=== PATIENT | female | born 1960 | race Two or more races ===

== ENCOUNTER 2020-01-28 08:19 | Outpatient (REF) | payer OTHER, SELFPAY ==
--- NOTE | 2020-01-28 08:24 | MM_ITS ---
EXAMINATION: MM SCREENING DIGITAL BREAST TOMOSYNTHESIS, BILATERAL CLINICAL INFORMATION: Screening. Asymptomatic. The lifetime risk of breast cancer based on the Tyrer-Cuzick Model is 6%. COMPARISON: Mammography: 07/16/2018, 06/05/2017 TECHNIQUE: Digital breast tomosynthesis is performed in both the craniocaudal and mediolateral oblique views along with computer-aided detection (CAD). Synthesized 2D images are generated from the tomosynthesis. FINDINGS: There are scattered areas of fibroglandular density (ACR BI-RADS breast composition Category b). There are no significant masses, abnormal calcifications, or other abnormalities. There are scattered bilateral benign coarse round and rim calcifications and some ductal secretory calcifications retroareolar right breast the axilla and skin contours are unremarkable. MM/MM tomosynthesis screening BI IMPRESSION: No mammographic evidence of malignancy. ASSESSMENT: BI-RADS 2: Benign RECOMMENDATION: Routine annual mammography screening. This patient's information was entered into a reminder system with a target due date for their next mammogram.
== END 2020-01-28 08:20 | disposition home or self-care (01) ==
LOC: HO.MAMMO 08:19
PROVIDERS: Visit Provider Physician Assistant
DX: Z12.31 Encounter for screening mammogram for malignant neoplasm of breast (principal)
CPT/HCPCS: 77063; 77067

== ENCOUNTER 2020-03-07 08:18 | Outpatient (REF) | payer OTHER, SELFPAY ==
[2020-03-07 10:15] LABS: Alanine Aminotransferase 26 U/L (0-31); Albumin Level 4.2 g/dL (3.5-5.0); Alkaline Phosphatase 90 U/L (39-117); Anion Gap 15 (12-20); Aspartate Amino Transferase 50 U/L (5-31); Bilirubin Total 0.6 mg/dL (0.0-1.0); Blood Urea Nitrogen 15 mg/dL (9-16); Calcium 9.5 mg/dL (8.4-10.2); Carbon Dioxide 26 mmol/L (22-29); Chloride 105 mmol/L (96-108); Cholesterol 141 mg/dL; Estimated Glomerular Filt Rate 57; Glucose Fasting 121 mg/dL (60-99); HDL Cholesterol 64 mg/dL; LDL Cholesterol Calculated 60 mg/dl; Potassium 4.7 mmol/l (3.3-5.1); Sodium 141 mmol/L (135-145); Total Protein 7.4 g/dL (6.5-8.0); Triglycerides 89 mg/dL
[2020-03-07 11:04] LABS: Creatinine Urine 272.37 mg/dL
[2020-03-07 11:17] LABS: Microalbum/Creatinine Ratio Ur 195.6 ug/mg cr
== END 2020-03-07 08:19 | disposition home or self-care (01) ==
LOC: HO.LAB 08:18
PROVIDERS: PCP Physician Assistant; Visit Provider Physician Assistant
DX: E78.00 Pure hypercholesterolemia, unspecified (principal); E11.9 Type 2 diabetes mellitus without complications
CPT/HCPCS: 80053; 80061; 82043

== ENCOUNTER 2020-05-18 09:45 | Outpatient (REF) | payer OTHER, SELFPAY | END 2020-05-18 09:46 | disposition home or self-care (01) | LOC: HO.LAB 09:45 | PROVIDERS: PCP Physician Assistant; Visit Provider Internal Medicine | DX: Z20.822 Contact with and (suspected) exposure to COVID-19 (principal) | CPT/HCPCS: 36415; C9803; U0003; U0005 ==

== ENCOUNTER 2020-06-09 07:42 | Outpatient (REF) | payer OTHER, SELFPAY ==
[2020-06-09 07:56] LABS: MANUAL DIFF FLAG NO
[2020-06-09 08:12] LABS: Basophils Absolute Auto 0.1 X10*3/uL (0.0-0.2); Basophils Percent Auto 0.7 % (0-2); Eosinophils Absolute Auto 0.2 X10*3/uL (0.0-0.4); Eosinophils Percent Auto 3.3 % (0-4); Hematocrit 38.4 % (37-47); Hemoglobin 12.4 g/dl (12.0-16.0); Imm Gran Abs Auto 0.01 X10*3/uL (0.00-0.03); Imm Gran Pct Auto 0.1 % (0.0-0.4); Lymphocytes Absolute Auto 3.1 X10*3/uL (1.2-4.9); Lymphocytes Percent Auto 43.5 % (20-40); Mean Corpuscular HGB Conc 32.3 g/dl (31.0-35.0); Mean Corpuscular Volume 89.9 fL (80-98); Mean Platelet Volume 9.9 fL (9.4-12.3); Monocytes Absolute Auto 0.7 X10*3/uL (0.1-1.2); Monocytes Percent Auto 9.8 % (2-11); Neutrophils Percent Auto 42.6 % (45-73); Platelet Count 207 X10*3/uL (160-400); Red Blood Count 4.27 X10*6/uL (4.20-5.50); Red Cell Distribution Width 14.3 % (11.0-16.0); White Blood Count 7.1 X10*3/uL (4.8-10.8)
[2020-06-09 08:19] LABS: Estimated Average Glucose 180 mg/dL; Hemoglobin A1c % 7.9 %
[2020-06-09 08:41] LABS: Alanine Aminotransferase 23 U/L (0-31); Albumin Level 4.4 g/dL (3.5-5.0); Alkaline Phosphatase 86 U/L (39-117); Anion Gap 18 (12-20); Aspartate Amino Transferase 43 U/L (5-31); Bilirubin Total 0.6 mg/dL (0.0-1.0); Blood Urea Nitrogen 15 mg/dL (9-16); Calcium 9.6 mg/dL (8.4-10.2); Carbon Dioxide 24 mmol/L (22-29); Chloride 105 mmol/L (96-108); Cholesterol 148 mg/dL; Estimated Glomerular Filt Rate 50; Glucose Fasting 137 mg/dL (60-99); HDL Cholesterol 63 mg/dL; LDL Cholesterol Calculated 63 mg/dl; Potassium 4.9 mmol/L (3.3-5.1); Sodium 142 mmol/L (135-145); Total Protein 7.9 g/dL (6.5-8.0); Triglycerides 113 mg/dL
== END 2020-06-09 07:43 | disposition home or self-care (01) ==
LOC: HO.LAB 07:42
PROVIDERS: PCP Physician Assistant; Visit Provider Physician Assistant
DX: E11.9 Type 2 diabetes mellitus without complications (principal); E78.2 Mixed hyperlipidemia; Z79.4 Long term (current) use of insulin
CPT/HCPCS: 36415; 80053; 80061; 83036; 84443; 85025

== ENCOUNTER 2021-02-17 07:52 | Outpatient (REF) | payer OTHER, SELFPAY ==
--- NOTE | ~2021-02-17 | MM_ITS ---
EXAMINATION: MM SCREENING DIGITAL BREAST TOMOSYNTHESIS, BILATERAL CLINICAL INFORMATION: Screening. Asymptomatic. The lifetime risk of breast cancer based on the Tyrer-Cuzick Model is 5%. COMPARISON: Mammography: 01/28/2020, 07/16/2018, 06/05/2017, 06/16/2012 TECHNIQUE: Digital breast tomosynthesis is performed in both the craniocaudal and mediolateral oblique views along with computer-aided detection (CAD). Synthesized 2D images are generated from the tomosynthesis. FINDINGS: There are scattered areas of fibroglandular density (ACR BI-RADS breast composition Category b). There are no significant masses, abnormal calcifications, or other abnormalities. Parenchymal asymmetry mid outer left breast on CC view is similar to prior exams. Again, there are bilateral benign round and rim calcifications anterior breasts with some lesser ductal secretory calcifications. MM/MM tomosynthesis screening BI IMPRESSION: No significant changes from prior studies. ASSESSMENT: BI-RADS 2: Benign RECOMMENDATION: Routine annual mammography screening. This patient's information was entered into a reminder system with a target due date for their next mammogram.
== END 2021-02-17 07:53 | disposition home or self-care (01) ==
LOC: HO.MAMMO 07:52
PROVIDERS: Visit Provider Internal Medicine
DX: Z12.31 Encounter for screening mammogram for malignant neoplasm of breast (principal)
CPT/HCPCS: 77063; 77067

== ENCOUNTER 2021-03-06 07:15 | Outpatient (REF) | payer OTHER, SELFPAY ==
[2021-03-06 08:08] LABS: Hematocrit 37.9 % (37.0-47.0); Hemoglobin 12.5 g/dl (12.0-16.0); Mean Corpuscular Hemoglobin 29.4 pg (27.0-33.0); Mean Corpuscular Volume 89.2 fL (80.0-98.0); Mean Platelet Volume 10.2 fL (9.4-12.3); Platelet Count 254 X10*3/uL (160-400); Red Blood Count 4.25 X10*6/uL (4.20-5.50); Red Cell Distribution Width 13.4 % (11.0-16.0); White Blood Count 7.2 X10*3/uL (4.8-10.8)
[2021-03-06 08:33] LABS: Creatinine Urine 94.89 mg/dL; Microalbum/Creatinine Ratio Ur 65.3 ug/mg cr
[2021-03-06 08:39] LABS: Alanine Aminotransferase 23 U/L (0-31); Albumin Level 4.2 g/dL (3.5-5.0); Alkaline Phosphatase 90 U/L (39-117); Anion Gap 13 (12-20); Aspartate Amino Transferase 40 U/L (5-31); Bilirubin Total 0.6 mg/dL (0.0-1.0); Blood Urea Nitrogen 15 mg/dL (9-16); Calcium 9.9 mg/dL (8.4-10.2); Carbon Dioxide 28 mmol/L (22-29); Chloride 105 mmol/L (96-108); Cholesterol 146 mg/dL; Estimated Glomerular Filt Rate > 60; Glucose Fasting 116 mg/dL (60-99); HDL Cholesterol 63 mg/dL; LDL Cholesterol Calculated 70 mg/dl; Potassium 4.9 mmol/L (3.3-5.1); Sodium 141 mmol/L (135-145); Total Protein 7.6 g/dL (6.5-8.0); Triglycerides 66 mg/dL
[2021-03-06 09:05] LABS: TSH reflex Free T4 3.57 uIU/mL (0.32-4.0)
== END 2021-03-06 07:16 | disposition home or self-care (01) ==
LOC: HO.LAB 07:15
PROVIDERS: PCP Physician Assistant; Visit Provider Physician Assistant
DX: I10 Essential (primary) hypertension (principal); E11.9 Type 2 diabetes mellitus without complications; Z79.4 Long term (current) use of insulin
CPT/HCPCS: 36415; 80053; 80061; 82043; 84443; 85027

== ENCOUNTER → 2021-05-25 08:09 | Outpatient (BNVA) | payer OTHER, SELFPAY | PROVIDERS: PCP Physician Assistant; Visit Provider Advanced Practice Midwife | DX: N81.89 Other female genital prolapse (principal) | CPT/HCPCS: 99202 ==

== ENCOUNTER → 2021-06-21 09:15 | Outpatient (BNVA) | payer OTHER, SELFPAY | PROVIDERS: PCP Physician Assistant; Visit Provider Advanced Practice Midwife | DX: N81.9 Female genital prolapse, unspecified (principal) | CPT/HCPCS: 57160 ==

== ENCOUNTER → 2021-06-28 10:49 | Outpatient (BNVA) | payer OTHER, SELFPAY | PROVIDERS: PCP Physician Assistant; Visit Provider Advanced Practice Midwife | DX: N81.9 Female genital prolapse, unspecified (principal) | CPT/HCPCS: 99212 ==

== ENCOUNTER 2021-07-07 08:00 | Outpatient (REF) | payer OTHER, SELFPAY ==
[2021-07-07 08:44] LABS: Hematocrit 35.8 % (37.0-47.0); Hemoglobin 11.7 g/dl (12.0-16.0); Mean Corpuscular HGB Conc 32.7 g/dl (31.0-35.0); Mean Corpuscular Volume 88.8 fL (80.0-98.0); Mean Platelet Volume 10.3 fL (9.4-12.3); Platelet Count 225 X10*3/uL (160-400); Red Blood Count 4.03 X10*6/uL (4.20-5.50); Red Cell Distribution Width 14.6 % (11.0-16.0); White Blood Count 7.5 X10*3/uL (4.8-10.8)
[2021-07-07 08:53] LABS: Estimated Average Glucose 163 mg/dL; Hemoglobin A1c % 7.3 %
[2021-07-07 09:10] LABS: Microalbum/Creatinine Ratio Ur 212.9 ug/mg cr
[2021-07-07 09:15] LABS: Alanine Aminotransferase 20 U/L (0-31); Albumin Level 4.3 g/dL (3.5-5.0); Alkaline Phosphatase 90 U/L (39-117); Anion Gap 11 (12-20); Aspartate Amino Transferase 38 U/L (5-31); Bilirubin Total 0.4 mg/dL (0.0-1.0); Blood Urea Nitrogen 20 mg/dL (9-16); Calcium 9.8 mg/dL (8.4-10.2); Carbon Dioxide 29 mmol/L (22-29); Chloride 105 mmol/L (96-108); Cholesterol 147 mg/dL; Estimated Glomerular Filt Rate > 60; Glucose Fasting 151 mg/dL (60-99); HDL Cholesterol 61 mg/dL; LDL Cholesterol Calculated 73 mg/dl; Sodium 140 mmol/L (135-145); Total Protein 7.6 g/dL (6.5-8.0); Triglycerides 68 mg/dL
[2021-07-07 09:29] LABS: TSH reflex Free T4 3.46 uIU/mL (0.32-4.0)
== END 2021-07-07 08:01 | disposition home or self-care (01) ==
LOC: HO.LAB 08:00
PROVIDERS: PCP Physician Assistant; Visit Provider Physician Assistant
DX: E11.9 Type 2 diabetes mellitus without complications (principal); Z79.4 Long term (current) use of insulin
CPT/HCPCS: 36415; 80053; 80061; 82043; 83036; 84443; 85027

== ENCOUNTER 2021-08-08 07:26 | Outpatient (REF) | payer OTHER, SELFPAY ==
[2021-08-08 09:14] LABS: Erythrocyte Sedimentation Rate 17 MM/HR (0-20)
== END 2021-08-08 07:27 | disposition home or self-care (01) ==
LOC: HO.LAB 07:26
PROVIDERS: PCP Physician Assistant; Visit Provider Physician Assistant
DX: M79.601 Pain in right arm (principal); M79.602 Pain in left arm
CPT/HCPCS: 36415; 85652; 86140

== ENCOUNTER 2022-03-02 07:34 | Outpatient (REF) | payer OTHER, SELFPAY ==
--- NOTE | ~2022-03-02 | MM_ITS ---
EXAMINATION: MM SCREENING DIGITAL BREAST TOMOSYNTHESIS, BILATERAL CLINICAL INFORMATION: Screening. Asymptomatic. The lifetime risk of breast cancer based on the Tyrer-Cuzick Model is 5%. COMPARISON: Mammography: 02/17/2021, 01/28/2020, 07/16/2018 TECHNIQUE: Digital breast tomosynthesis is performed in both the craniocaudal and mediolateral oblique views along with computer-aided detection (CAD). Synthesized 2D images are generated from the tomosynthesis. FINDINGS: There are scattered areas of fibroglandular density (ACR BI-RADS breast composition Category b). There are no significant masses, abnormal calcifications, or other abnormalities. Breast tissue composition borders on predominantly fatty. Background stromal markings and fibroglandular densities are stable. No developing density or architectural abnormality. There are scattered benign bilateral predominantly coarse round calcifications and vascular and ductal secretory calcifications. The axilla and skin contours are unremarkable. MM/MM tomosynthesis screening BI IMPRESSION: No mammographic evidence of malignancy. ASSESSMENT: BI-RADS 1: Negative RECOMMENDATION: Routine annual mammography screening. This patient's information was entered into a reminder system with a target due date for their next mammogram.
== END 2022-03-02 07:35 | disposition home or self-care (01) ==
LOC: HO.MAMMO 07:34
PROVIDERS: Visit Provider Physician Assistant
DX: Z12.31 Encounter for screening mammogram for malignant neoplasm of breast (principal)
CPT/HCPCS: 77063; 77067

== ENCOUNTER 2022-04-03 10:41 | Emergency (ER) | payer OTHER, SELFPAY ==
--- NOTE | ~2022-04-03 | XR_ITS ---
EXAMINATION: XR KNEE, RIGHT CLINICAL INFORMATION: Right knee pain and swelling COMPARISON: None TECHNIQUE: Four views of the right knee. FINDINGS: There is loss of medial compartment joint space with periarticular spurring. No loose bodies bony erosive changes seen. There is chondrocalcinosis lateral compartment. The patellofemoral compartment joint space is maintained normal. No abnormal joint effusion seen. There are no loose bodies. XR/XR knee RT 3V IMPRESSION: 1. Degenerative arthritic changes medial compartment right knee. No visible acute fracture or dislocation seen. 2. There is chondrocalcinosis lateral compartment.
--- NOTE | 2022-04-03 11:31 | ED.LOWEXIN ---
HPI - Extremity Injury (Lower) General Chief Complaint: Extremity Injury, Lower Stated Complaint: R Knee Pain No Injury Time Seen by Provider: 04/03/22 12:52 Source: patient Mode of arrival: ambulatory History of Present Illness HPI Narrative: 62-year-old female with past medical history of diabetes, osteoarthritis, depression, hypertension, osteoporosis, presenting to the ED complaining of right knee pain x weeks. Denies known injury, trauma, fall, numbness/tingling, weakness. Admits to similar symptoms in the past with her arthritis. Denies taking anything for pain MD complaint: knee injury Onset (ago): week(s) Related Data Previous Rx's Medication Instructions Recorded fluticasone propionate 50 1 spray intranasal DAILY #16 grams 04/12/20 mcg/actuation nasal spray,suspension triamcinolone acetonide 0.1 % 1 appl topical DAILY 30 days #80 11/14/20 topical cream grams cholecalciferol (vitamin D3) 50 50 mcg PO DAILY 90 days #90 tabs 04/19/21 mcg (2,000 unit) tablet fenofibrate nanocrystallized 48 mg 48 mg PO DAILY #90 tabs 04/19/21 tablet aspirin 81 mg tablet,delayed 81 mg PO DAILY #90 tabs 05/17/21 release blood sugar diagnostic (FreeStyle #100 strips 06/19/21 Lite Strips) blood pressure test kit-medium #1 ea 08/10/21 sumatriptan succinate 25 mg tablet See Rx Instructions PO .COMPLEX #9 09/12/21 tabs lancets 33 gauge (TRUEplus Lancets) 1 gauge miscellaneous BID for 12/19/21 diabetes mellitus 30 days #100 ea metformin 500 mg tablet 500 mg PO BID 90 days #180 tabs 12/31/21 dulaglutide 0.75 mg/0.5 mL 0.75 mg (0.5 mL) subcut QWEEK #1 mL 01/02/22 subcutaneous [facility]) lisinopril 20 mg tablet 20 mg PO DAILY #90 tabs 01/24/22 metoprolol tartrate 25 mg tablet 25 mg PO DAILY 90 days #90 tabs 01/24/22 atorvastatin 80 mg tablet 80 mg PO DAILY #90 tabs 03/05/22 acetaminophen 500 mg tablet 500 mg PO TID PRN fever 30 days 03/07/22 #90 tabs blood-glucose meter (FreeStyle #1 ea 03/07/22 Lite Meter kit) cyclobenzaprine 5 mg tablet 5 mg PO BEDTIME 30 days #30 tabs 03/20/22 acetaminophen 500 mg tablet 500 mg PO Q6H PRN fever or pain 04/03/22 (Tylenol Extra Strength) #14 tabs naproxen 500 mg tablet 500 mg PO BID PRN pain 10 days #20 04/03/22 tabs Allergies Allergy/AdvReac Type Severity Reaction Status Date / Time Penicillins [PENICILLINS] Allergy Severe RASH Verified 01/24/22 08:27 penicillin V Allergy Unknown rash Verified 01/24/22 08:27 Review of Systems Review of Systems: Constitutional: No Weight loss, No Fever, No Chills ENT/Mouth: No Ear Pain, No Nasal Congestion, No sore throat, No Rhinorrhea, No Swallowing Difficulty Cardiovascular: No Chest Pain, No SOB Respiratory: No Cough, No Sputum, No Wheezing Gastrointestinal: No Nausea, No Vomiting, No Diarrhea, No Constipation, No Abdominal pain Genitourinary: No Dysuria, No Urinary Frequency, No Hematuria, No Urinary Incontinence/retention, No Urgency, No Flank Pain Musculoskeletal: + joint pain, No Myalgias, + Joint Swelling Skin: No Skin Lesions, No rash Neuro: No Weakness, No Numbness, No Paresthesias Yes all other systems are reviewed and are negative Constitutional: Constitutional: Reports as per [facility] Past Medical History Attestation statement: The following information was validated with the patient. Medical History H/O diabetes mellitus H/O: osteoarthritis History of depression Hx of migraine headaches Hypertension Osteoporosis Surgical History History of pelvic surgery History of tubal ligation Family History Family History Father Diabetes Mental health disorder Substance use disorder Mother Diabetes Substance use disorder Maternal Grandmother No problems noted. Maternal Grandfather No problems noted. Paternal Grandmother No problems noted. Paternal Grandfather No problems noted. Sister Substance use disorder Brother Substance use disorder Social History Social History Housing: Apartment Alcohol intake: never Patient Tobacco Use Status: Never used Tobacco e-Cigarette/Vaping Use: Never Used Second Hand Smoke Exposure: No Advance Directives: No Advance Directives Information Provided: No service: No Current occupational status: disabled Current occupation: [employer] Cognitive needs: No Hearing needs: No Vision needs: No Physical Exam Vital Signs: Vital Signs: Last Vital Signs Temp 98.6 F 04/03/22 11:32 Pulse 67 04/03/22 11:32 Resp 18 04/03/22 11:32 BP 168/68 H 04/03/22 11:32 Pulse Ox 99 04/03/22 11:32 O2 Del Method 04/03/22 11:32 BMI result Body Mass Index 30.2 Const: General: cooperative, healthy appearing and no acute distress Orientation/consciousness: patient oriented x3 Limitations: no limitations HEENT: Head: Yes normal to inspection and Yes atraumatic Ears: hearing grossly normal bilaterally General nose exam: Normal external nose present Face and sinus: Yes normal facial exam Eyes: General: appearance normal, both eyes and all related structures EOM: EOMs intact bilaterally Neck: Neck: Yes normal visual inspection and Yes no meningeal signs Resp: Effort & Inspection: normal respiratory effort and no respiratory distress Cardio: Rate: regular rate Heart sounds: S1 normal heart sound present and S2 normal heart sound present Peripheral pulses: Peripheral pulses 2+ throughout Skin: Rashes: no rashes Wounds: no wounds Neuro: General: patient oriented x3, tone normal and no meningeal signs Gait exam (Neuro): Normal gait present Extrem: Other: Right knee with mild swelling. No appreciable deformity. Diffusely tender to palpation. Full range of motion intact with pain. Neurovascular intact distally. No erythema/crepitus or warmth Ambulating with steady gait Course Course Course Narrative: RME--62yo F w/PMHx asthma, DM, OA, HTN, presenting to the ED c/o R knee pain x2 weeks. Denies injury/trauma or fall. Pain worse with ambiulation and movement Mild R knee swelling and ttp noted. FROM and NV intact XR ordered in triage XR knee RT 3V IMPRESSION: 1.? Degenerative arthritic changes medial compartment right knee. No visible acute fracture or dislocation seen. 2.? There is chondrocalcinosis lateral compartment. ? >> Gavin wrap applied for comfort and stability Medications Administered Discontinued Medications Generic Name Dose Route Start Last Admin Trade Name Freq PRN Reason Stop Dose Admin Naproxen 500 mg 04/03/22 12:56 04/03/22 13:01 Naproxen 500 Mg Tablet PO 04/03/22 12:57 500 mg ONCE ONE Administration Medical Decision Making Medical Decision Making MDM Narrative: 62-year-old female with past medical history of diabetes, osteoarthritis, depression, hypertension, osteoporosis, presenting to the ED complaining of right knee pain x weeks. On exam vital signs stable, NAD, nontoxic appearing, physical exam as noted above. Concern for arthritic flare vs effusion vs sprain. Lower suspicion for fracture. Low concern for septic joint/arthritis or gout Plan: X-rays Differential Diagnosis Differential Diagnoses: The differential diagnosis associated with the presentation includes As above Radiology Impression Discussion of test interpretation with radiology: I have reviewed the radiologist's reading. Procedures Orthopedic Splinting/Casting Injury #1: Side: right Lower Extremity Injury Location: knee Lower Extremity Immobilizer: Gavin wrap Discharge Plan Discharge Clinical Impression: Arthritis of knee Patient Disposition: Home, Self-Care Instructions: Osteoarthritis (ED) Additional Instructions: Your x-ray shows degenerative/arthritic changes of your knee. Naproxen as an anti-inflammatory/pain medication, take with food. In addition take Tylenol. Ice and elevate. Wear Gavin wrap for comfort and compression Follow-up with Orthopedics If symptoms persist or worsen return to the emergency department Prescriptions: New acetaminophen [Tylenol Extra Strength] 500 mg tablet 500 mg PO Q6H PRN (Reason: fever or pain) Qty: 14 0RF naproxen 500 mg tablet 500 mg PO BID PRN (Reason: pain) 10 Days Qty: 20 0RF No Action fluticasone propionate 50 mcg/actuation spray,suspension 1 spray intranasal DAILY Qty: 16 3RF aspirin 81 mg tablet,delayed release (DR/EC) 81 mg PO DAILY Qty: 90 1RF (DME) FreeStyle Lite Strips Strip See Rx Instructions .ROUTE .COMPLEX Qty: 100 11RF Dose Instruction: TEST BLOOD SUGAR THREE TIMES DAILY Rx Instructions: TEST BLOOD SUGAR THREE TIMES DAILY sumatriptan succinate 25 mg tablet See Rx Instructions PO .COMPLEX Qty: 9 3RF Rx Instructions: take 1 tab at onset of headache; if no relief may repeat 1 tab after at least 2 hrs; max = 4 tabs/24 hr PO lancets [TRUEplus Lancets] 33 gauge misc 1 gauge miscellaneous BID 30 Days Qty: 100 3RF metformin 500 mg tablet 500 mg PO BID 90 Days Qty: 180 1RF Trulicity 0.75 mg/0.5 mL pen injector 0.75 mg subcut QWEEK Qty: 1 3RF atorvastatin 80 mg tablet 80 mg PO DAILY Qty: 90 2RF acetaminophen 500 mg tablet 500 mg PO TID PRN (Reason: fever) 30 Days Qty: 90 0RF (DME) blood-glucose meter [FreeStyle Lite Meter] Kit See Rx Instructions .Route Qty: 1 0RF Rx Instructions: As directed cyclobenzaprine 5 mg tablet 5 mg PO BEDTIME 30 Days Qty: 30 6RF triamcinolone acetonide 0.1 % cream 1 appl topical DAILY 30 Days Qty: 80 0RF cholecalciferol (vitamin D3) 50 mcg (2,000 unit) tablet 50 mcg PO DAILY 90 Days Qty: 90 3RF fenofibrate nanocrystallized 48 mg tablet 48 mg PO DAILY Qty: 90 1RF lisinopril 20 mg tablet 20 mg PO DAILY Qty: 90 1RF metoprolol tartrate 25 mg tablet 25 mg PO DAILY 90 Days Qty: 90 1RF (DME) blood pressure test kit-medium Kit See Rx Instructions .Route Qty: 1 0RF Rx Instructions: As directed Referrals: [facility] [place] [facility] [Provider Group] - 1 week Interventions: ED Discharge Assessment Last Done: 04/03/22 13:03 Discharge Date/Time: 04/03/22 13:03
[2022-04-03 11:32] VITALS: BP 168/68; PULSE 67; RESP 18; TEMP 37; O2SAT 99; BMI 30.2
[2022-04-03] MEDS: NaPROXEN 500 MG TABLET PO (13:01)
== END 2022-04-03 13:03 | disposition home or self-care (01) ==
PROVIDERS: Emergency Provider Emergency Medicine; PCP Physician Assistant
DX: M17.11 Unilateral primary osteoarthritis, right knee (principal); M25.561 Pain in right knee; E11.9 Type 2 diabetes mellitus without complications; I10 Essential (primary) hypertension; E78.5 Hyperlipidemia, unspecified; Z79.82 Long term (current) use of aspirin; Z79.84 Long term (current) use of oral hypoglycemic drugs; Z79.899 Other long term (current) drug therapy; Z79.85 Long-term (current) use of injectable non-insulin antidiabetic drugs; Z79.02 Long term (current) use of antithrombotics/antiplatelets
CPT/HCPCS: 73562; 99283

== ENCOUNTER → 2022-04-26 09:01 | Outpatient (BNVA) | payer OTHER, SELFPAY | PROVIDERS: PCP Physician Assistant; Visit Provider Orthopaedic Surgery | DX: M17.11 Unilateral primary osteoarthritis, right knee (principal) | CPT/HCPCS: 99202 ==

== ENCOUNTER 2022-07-26 09:07 | Outpatient (REF) | payer OTHER, SELFPAY ==
[2022-07-26 09:26] LABS: Hematocrit 37.9 % (37.0-47.0); Hemoglobin 12.6 g/dl (12.0-16.0); Mean Corpuscular HGB Conc 33.2 g/dl (31.0-35.0); Mean Corpuscular Volume 90.2 fL (80.0-98.0); Mean Platelet Volume 9.8 fL (9.4-12.3); Platelet Count 221 X10*3/uL (160-400); Red Cell Distribution Width 13.3 % (11.0-16.0); White Blood Count 8.6 X10*3/uL (4.8-10.8)
[2022-07-26 10:10] LABS: Creatinine Urine 85.89 mg/dL; Microalbum/Creatinine Ratio Ur 25.6 ug/mg cr
[2022-07-26 10:14] LABS: Alanine Aminotransferase 26 U/L (0-31); Albumin Level 4.4 g/dL (3.5-5.0); Alkaline Phosphatase 87 U/L (39-117); Anion Gap 14 (12-20); Aspartate Amino Transferase 39 U/L (5-31); Bilirubin Total 0.5 mg/dL (0.0-1.0); Blood Urea Nitrogen 21 mg/dL (9-16); Calcium 9.7 mg/dL (8.4-10.2); Carbon Dioxide 25 mmol/L (22-29); Chloride 108 mmol/L (96-108); Cholesterol 151 mg/dL; Estimated Glomerular Filt Rate 56; Glucose Fasting 143 mg/dL (60-99); HDL Cholesterol 60 mg/dL; LDL Cholesterol Calculated 80 mg/dl; Potassium 5.7 mmol/L (3.3-5.1); Sodium 141 mmol/L (135-145); Total Protein 7.5 g/dL (6.5-8.0); Triglycerides 59 mg/dL
[2022-07-26 10:30] LABS: TSH reflex Free T4 2.45 uIU/mL (0.32-4.0)
== END 2022-07-26 09:08 | disposition home or self-care (01) ==
LOC: HO.LAB 09:07
PROVIDERS: PCP Physician Assistant; Visit Provider Physician Assistant
DX: I10 Essential (primary) hypertension (principal); E11.9 Type 2 diabetes mellitus without complications; E78.2 Mixed hyperlipidemia; Z79.4 Long term (current) use of insulin
CPT/HCPCS: 36415; 80053; 80061; 82043; 84443; 85027

== ENCOUNTER 2022-10-25 08:30 | Outpatient (AMB) | payer OTHER, SELFPAY ==
[2022-10-25 08:37] VITALS: BP 114/78; PULSE 67; O2SAT 97; BMI 31.4
--- NOTE | 2022-10-25 08:37 | MHC.PC.OV ---
Vital Signs 10/25/22 08:37 Height 5 ft 1 in Weight 166 lb BMI 31.4 BP 114/78 Blood Pressure Location Lt brachial Position Sitting Pulse 67 Pulse Source Pulse Oximeter Pulse Oximetry (%) 97 Oxygen Delivery Method Room Air Intake Visit Reasons: f/u DMII Allergies Penicillins [PENICILLINS] Allergy (Severe, Verified 10/25/22 08:50) RASH penicillin V Allergy (Unknown, Verified 10/25/22 08:50) rash naproxen Adverse Reaction (Intermediate, Verified 10/25/22 08:50) Dizziness naproxen Adverse Reaction (Intermediate, Uncoded 10/25/22 08:50) Weakness Medication List - Last Reconciled 10/25/22 by Julio House PA-C acetaminophen ER (Tylenol Arthritis Pain) 650 mg PO Q12H 30 days atorvastatin 80 mg PO DAILY blood pressure test kit-medium As directed blood sugar diagnostic (FreeStyle Lite Strips) TEST BLOOD SUGAR THREE TIMES DAILY blood-glucose meter (FreeStyle Lite Meter kit) As directed cholecalciferol (vitamin D3) 50 mcg PO DAILY 90 days cyclobenzaprine 5 mg PO BEDTIME 30 days dulaglutide (Trulicity) 0.75 mg (0.5 mL) subcut QWEEK fenofibrate nanocrystallized 48 mg PO DAILY fluticasone propionate 50 mcg/actuation 1 spray intranasal DAILY lancets (TRUEplus Lancets) 1 gauge miscellaneous BID 30 days lisinopril 20 mg PO DAILY metformin 500 mg PO BID 90 days metoprolol tartrate 25 mg PO DAILY 90 days sumatriptan succinate take 1 tab at onset of headache; if no relief may repeat 1 tab after at least 2 hrs; max = 4 tabs/24 hr PO triamcinolone acetonide 0.1% 1 appl topical DAILY 30 days Tobacco use date assessed: 07/26/22 Dental Screening Dental Screen Date: 10/25/22 Did you have a dental visit in the last 12 months?: No Did you have a dental problem in the last 6 months where you did not have access to dental care?: No Was dental information given to patient?: Patient has dentist HPI f/u DMII HPI Details Patient is a 62-year-old female here today for a follow-up visit. ?Patient has a past medical history significant for type 2 diabetes, hypertension hyperlipidemia. Concerns--> reports having a lot of muscle and arthritic pain continues. Has not been able tolerate NSAID ?Type 2 diabetes: .? Today's A1c-7.0 .? She continues on Trulicity and metformin..? She does report a lot of stress in her life. ? She has stopped eating a lot of carbohydrate rich foods. ?Has been seen by her Eye doctor and has no Retinopathy.. . ? .. ? Hypertension:? Blood pressure today in office acceptable.? Continues on lisinopril 20 mg with good effect. Has been off metoprolol. ?? ,? Otherwise denies any chest pain, haley dizziness, headache Colonoscopy:? Done [place] [address] Moreno, tubular adenoma polyp needs repeat 5 years-needs repeat Mammogram:? Done in March of 2022, BI-RADS 1 Vaccines:? Up-to-date with tetanus vaccine, pneumonia vaccine, Declines COVID Vaccine, Considering Shingrex vaccine. FORMERLY [facility], [facility] Medical History (Updated 10/25/22 @ 10:03 by Julio House PA-C) Depression H/O diabetes mellitus H/O: osteoarthritis History of depression Hx of migraine headaches Hypertension Osteoporosis Pelvic prolapse Trigger finger of left hand Surgical History History of pelvic surgery History of tubal ligation Family History Father Diabetes Mental health disorder Substance use disorder Mother Diabetes Substance use disorder Maternal Grandmother No problems noted. Maternal Grandfather No problems noted. Paternal Grandmother No problems noted. Paternal Grandfather No problems noted. Sister Substance use disorder Brother Substance use disorder Social History Housing: Apartment Alcohol intake: never Patient Tobacco Use Status: Never used Tobacco e-Cigarette/Vaping Use: Never Used Second Hand Smoke Exposure: No service: No Current occupational status: disabled Current occupation: [employer]/ rt hand Cognitive needs: No Hearing needs: No Vision needs: No Questionnaire PHQ-9 Over the last 2 weeks, how often have you been bothered by any of the following problems? 1. Little interest or pleasure in doing things: not at all 2. Feeling down, depressed, or hopeless: several days 3. Trouble falling or staying asleep, or sleeping too much: several days 4. Feeling tired or having little energy: not at all 5. Poor appetite or overeating: not at all 6. Feeling bad about yourself - or that you are a failure or have let yourself or your family down: not at all 7. Trouble concentrating on things, such as reading the newspaper or watching television: not at all 8. Moving or speaking so slowly that other people could have noticed. Or the opposite - being so fidgety or restless that you have been moving around a lot more than usual: not at all 9. Thoughts that you would be better off or of hurting yourself in some way: not at all Total score: 2 Depression Screening Interpretation: Negative 24394 - PHQ-9 Billing: Yes Source: Developed by Drs. Aly Suarez, Soila Wagoner, Carl Altman and colleagues, with an educational srinath from [employer]. Thrive Questionnaire Date Thrive assessed: 07/26/22 AUDIT C Alcohol Use Questionnaire (AUDIT-C) 1. How often do you have a drink containing alcohol?: Never Total Score: 0 GALILEA-7 AMB Questionnaire GALILEA-7 Date GALILEA - 7 assessed: 07/26/22 Source: Developed by Drs. Aly Suarez, Soila Wagoner, Carl Altman and colleagues, with an educational srinath from [employer]. Review of Systems Const Denies headache(s) Eyes Denies loss of vision ENT Denies vertigo, Denies dizziness, Denies headache(s) and Denies sore throat Card Denies chest pain, Denies leg edema and Denies lightheadedness Resp Denies cough, Denies hemoptysis and Denies wheezing GI Denies abdominal pain, Denies melena, Denies constipation, Denies diarrhea and Denies vomiting Denies urinary frequency, Denies dysuria and Denies urinary urgency Musc Denies arthralgias, Denies joint swelling, Denies numbness and Denies tingling Neuro Denies Abnormal speech present, Denies behavioral changes, Denies vertigo, Denies dizziness, Denies headache(s), Denies loss of vision, Denies memory loss, Denies numbness and Denies tingling Psych Denies anxiety, Denies behavioral changes, Denies depression, Denies memory loss and Denies panic attacks Gennaro/Lymph Denies easy bleeding and Denies easy bruising Aller/Immun Denies wheezing Physical exam (Primary Care) Vital Signs: Last Vital Signs Pulse 67 10/25/22 08:37 BP 114/78 10/25/22 08:37 Pulse Ox 97 10/25/22 08:37 Oxygen Delivery Method Room Air 10/25/22 08:37 BMI result Body Mass Index 31.4 BMI Assessment/Plan discussion: High Tobacco/Smoking Status: Tobacco use Status Tobacco use date assessed 07/26/22 10/25/22 08:39 Patient Tobacco Use Status Never used Tobacco 10/25/22 08:39 e-Cigarette/Vaping Use Never Used 10/25/22 08:39 PHQ-9: PHQ-9 Score PHQ-9: Total score 2 10/25/22 08:48 Depression Screening Interpretation: Negative Thrive Assessment: Date of Thrive Assessment Date Thrive assessed 07/26/22 10/25/22 08:39 Const Other: Obese General: healthy appearing, no acute distress, alert and awake Nutritional Appearance: well nourished Orientation/consciousness: oriented to person, oriented to place and oriented to time HENMT Ears: TM's normal bilaterally General nose exam: Normal nasal mucous membranes and turbinates present Eyes Conjunctivae: conjunctivae normal Sclerae: sclerae normal Pupils: Equal, round and reactive pupils present Neck Neck: Yes no lymphadenopathy and Yes no JVD Thyroid: Thyroid normal Carotids: no bruits Resp Effort & Inspection: normal respiratory effort and not tachypneic Auscultation: no crackles, no rales, no rhonchi and no wheezes Cardio Rate: regular rate Rhythm: regular rhythm Heart sounds: no murmurs and normal S1 and S2 GI Palpation (GI): Soft to palpation, nontender, no hepatomegaly and no splenomegaly Auscultation: normal bowel sounds Skin General skin exam: no rashes or lesions noted and dry skin Neuro General: oriented to person, oriented to place and oriented to time Cranial nerves: Yes Equal, round and reactive pupils present Speech: No Abnormal speech present Gait exam (Neuro): Normal gait present Motor exam (neuro): no tremor noted Extrem Right upper extremity: full ROM Left upper extremity: full ROM Right lower extremity: full ROM; no edema Left lower extremity: full ROM; no edema Psych Mental Status: mental status grossly normal Speech and movement: Normal speech and movement present Affect: normal affect Attitude: cooperative Thought process: Normal thought process present Results AMB Hemoglobin A1c AMB Hemoglobin A1c 7.0 % Last Edit by Amalia Elliott CMA on 10/25/22 08:52 Assessment and Plan Assessment & Plan (1) HTN (hypertension): Code(s): I10 - Essential (primary) hypertension Qualifiers: Hypertension type: primary hypertension Qualified Code(s): I10 - Essential (primary) hypertension Plan: Patient's blood pressure acceptable today in office. Has been off metoprolol 25 mg thus will discontinue the medication as blood pressures have been stable. Will continue lisinopril 20 mg with goal blood pressure remain below 140/90. (2) HLD (hyperlipidemia): Code(s): E78.5 - Hyperlipidemia, unspecified Qualifiers: Hyperlipidemia type: mixed hyperlipidemia Qualified Code(s): E78.2 - Mixed hyperlipidemia Plan: Patient's most recent lipid panel acceptable. She has been reporting polyarthralgias and myalgias in the setting of being on fenofibrate and high-dose statin therapy. Will reduce her statin potency and discontinue fenofibrate and continue to follow fasting lipid panel with goal LDL to remain below 100. (3) DMII (diabetes mellitus, type 2): Code(s): E11.9 - Type 2 diabetes mellitus without complications Qualifiers: Diabetes mellitus fdc insulin use: with fdc use Diabetes mellitus complication status: without complication Qualified Code(s): E11.9 - Type 2 diabetes mellitus without complications; Z79.4 - senior care (current) use of insulin Plan: Patient's type 2 diabetes well controlled with current anti-hyperglycemic medication. Will continue to follow A1c with goal A1c to be below 7.0 (4) Obese: Code(s): E66.9 - Obesity, unspecified Qualifiers: Obesity type: due to excess calories Obesity classification: adult class 1 (BMI 30 - 34.9) Serious obesity comorbidity presence: with serious comorbidity Body mass index: BMI 30.0-30.9 Qualified Code(s): E66.09 - Other obesity due to excess calories; Z68.30 - Body mass index [BMI]30.0-30.9, adult Plan: Patient does understand her BMI is slightly above 30 will continue working on being more physically active and adapting to better eating habits to reduce her weight. (5) Myalgia: Code(s): M79.10 - Myalgia, unspecified site Plan: Patient reports myalgias and joint stiffness on a daily basis. Has tried NSAIDs and Tylenol without much relief. Does try to be more physically active which has helped reduce her pain somewhat. I am concerned she is having side effect of fenofibrate and statin. Will discontinue fenofibrate and reduce statin dose to see if myalgias and joint pains get better. Orders: Orders Comprehensive Fowler. Panel Fast Today E11.9 - Type 2 diabetes mellitus without complications, Z79.4 - ferry terminal supervisor (current) use of insulin Lipid Panel Today E78.2 - Mixed hyperlipidemia Complete Blood Count no Diff Today E11.9 - Type 2 diabetes mellitus without complications, Z79.4 - ferry terminal supervisor (current) use of insulin Creatine Kinase Total Today M79.10 - Myalgia, unspecified site AMB Hemoglobin A1c Today Z13.9 - Encounter for screening, unspecified Medications: New atorvastatin 20 mg PO DAILY 90 days 90 tabs 1RF E78.2 - Mixed hyperlipidemia Changed From dulaglutide (Trulicity) 0.75 mg (0.5 mL) subcut QWEEK 1 mL 3RF E11.9 - Type 2 diabetes mellitus without complications To dulaglutide (Trulicity) 0.75 mg (0.5 mL) subcut QWEEK 4 weeks 2 mL 3RF E11.9 - Type 2 diabetes mellitus without complications Refilled acetaminophen ER (Tylenol Arthritis Pain) 650 mg PO Q12H 30 days 60 tabs 3RF M17.11 - Unilateral primary osteoarthritis, right knee, M19.90 - Unspecified osteoarthritis, unspecified site cholecalciferol (vitamin D3) 50 mcg PO DAILY 90 days 90 tabs 3RF E11.9 - Type 2 diabetes mellitus without complications, Z79.4 - senior care (current) use of insulin cyclobenzaprine 5 mg PO BEDTIME 30 days 30 tabs 6RF M19.90 - Unspecified osteoarthritis, unspecified site lisinopril 20 mg PO DAILY 90 tabs 1RF I10 - Essential (primary) hypertension metformin 500 mg PO BID 90 days 180 tabs 1RF E11.9 - Type 2 diabetes mellitus without complications, Z79.4 - senior care (current) use of insulin sumatriptan succinate take 1 tab at onset of headache; if no relief may repeat 1 tab after at least 2 hrs; max = 4 tabs/24 hr PO 9 tabs 3RF G43.009 - Migraine without aura, not intractable, without status migrainosus triamcinolone acetonide 0.1% 1 appl topical DAILY 30 days 80 grams 3RF L95.9 - Vasculitis limited to the skin, unspecified Discontinued fenofibrate nanocrystallized Discontinued Reason: Doctor's Order 48 mg PO DAILY 90 tabs 1RF E78.2 - Mixed hyperlipidemia atorvastatin Discontinued Reason: Doctor's Order 80 mg PO DAILY 90 tabs 2RF metoprolol tartrate Discontinued Reason: Doctor's Order 25 mg PO DAILY 90 days 90 tabs 1RF I10 - Essential (primary) hypertension Coding Level of Care Code Est Pt Level 4 (31549) Diagnoses HTN (hypertension) I10 Hypertension type: primary hypertension HLD (hyperlipidemia) E78.2 Hyperlipidemia type: mixed hyperlipidemia DMII (diabetes mellitus, type 2) E11.9; Z79.4 Diabetes mellitus ferry terminal supervisor insulin use: with ferry terminal supervisor use Diabetes mellitus complication status: without complication Obese E66.09; Z68.30 Obesity type: due to excess calories Obesity classification: adult class 1 (BMI 30 - 34.9) Serious obesity comorbidity presence: with serious comorbidity Body mass index: BMI 30.0-30.9 Myalgia M79.10
== END 2022-10-25 09:02 | disposition home or self-care (01) ==
PROVIDERS: PCP Physician Assistant; Visit Provider Physician Assistant
DX: I10 Essential (primary) hypertension (principal); E11.9 Type 2 diabetes mellitus without complications; Z79.4 Long term (current) use of insulin; E66.09 Other obesity due to excess calories; Z68.30 Body mass index [BMI] 30.0-30.9, adult; E78.2 Mixed hyperlipidemia; M79.10 Myalgia, unspecified site
CPT/HCPCS: 83036; 99214

== ENCOUNTER 2022-10-25 09:05 | Outpatient (REF) | payer OTHER, SELFPAY ==
[2022-10-25 09:34] LABS: Hematocrit 37.2 % (37.0-47.0); Hemoglobin 12.1 g/dl (12.0-16.0); Mean Corpuscular HGB Conc 32.5 g/dl (31.0-35.0); Mean Corpuscular Volume 92.3 fL (80.0-98.0); Mean Platelet Volume 10.1 fL (9.4-12.3); Platelet Count 216 X10*3/uL (160-400); Red Blood Count 4.03 X10*6/uL (4.20-5.50); Red Cell Distribution Width 13.2 % (11.0-16.0); White Blood Count 7.6 X10*3/uL (4.8-10.8)
[2022-10-25 10:06] LABS: Alanine Aminotransferase 16 U/L (0-31); Albumin Level 4.3 g/dL (3.5-5.0); Alkaline Phosphatase 75 U/L (39-117); Anion Gap 15 (12-20); Aspartate Amino Transferase 29 U/L (5-31); Bilirubin Total 0.5 mg/dL (0.0-1.0); Blood Urea Nitrogen 19 mg/dL (9-16); Carbon Dioxide 22 mmol/L (22-29); Chloride 107 mmol/L (96-108); Cholesterol 150 mg/dL; Estimated Glomerular Filt Rate 57; Glucose Fasting 125 mg/dL (60-99); Glucose Random 126 mg/dL (60-115); HDL Cholesterol 56 mg/dL; LDL Cholesterol Calculated 78 mg/dl; Potassium 5.4 mmol/L (3.3-5.1); Sodium 139 mmol/L (135-145); Total Protein 7.9 g/dL (6.5-8.0); Triglycerides 80 mg/dL
== END 2022-10-25 09:06 | disposition home or self-care (01) ==
LOC: HO.LAB 09:05
PROVIDERS: PCP Physician Assistant; Visit Provider Physician Assistant
DX: E87.5 Hyperkalemia (principal); E11.9 Type 2 diabetes mellitus without complications; M79.10 Myalgia, unspecified site; E78.2 Mixed hyperlipidemia; Z79.4 Long term (current) use of insulin
CPT/HCPCS: 36415; 80048; 80053; 80061; 82550; 85027

== ENCOUNTER 2022-11-16 07:29 | Outpatient (REF) | payer OTHER, SELFPAY ==
[2022-11-16 08:42] LABS: Anion Gap 11 (12-20); Blood Urea Nitrogen 20 mg/dL (9-16); Calcium 10.2 mg/dL (8.4-10.2); Carbon Dioxide 24 mmol/L (22-29); Chloride 111 mmol/L (96-108); Estimated Glomerular Filt Rate > 60; Glucose Random 115 mg/dL (60-115); Potassium 4.3 mmol/L (3.3-5.1); Sodium 142 mmol/L (135-145)
== END 2022-11-16 07:30 | disposition home or self-care (01) ==
LOC: HO.LAB 07:29
PROVIDERS: PCP Physician Assistant; Visit Provider Physician Assistant
DX: M79.10 Myalgia, unspecified site (principal)
CPT/HCPCS: 36415; 80048; 82550

== ENCOUNTER 2023-03-04 08:25 | Outpatient (AMB) | payer OTHER, SELFPAY ==
[2023-03-04 08:43] VITALS: BP 128/82; PULSE 85; O2SAT 98; BMI 31.0
--- NOTE | 2023-03-04 08:43 | MHC.PC.OV ---
Vital Signs 03/04/23 08:43 Height 5 ft 1 in Weight 164 lb 4 oz BMI 31.0 BP 128/82 Blood Pressure Location Lt brachial Position Sitting Pulse 85 Pulse Source Pulse Oximeter Pulse Oximetry (%) 98 Oxygen Delivery Method Room Air Intake Visit Reasons: f/u DMII/ HTN/ HLD Sales Appointment Coordinator Required: No Accompanied by: Self / Same As Patient Allergies Penicillins [PENICILLINS] Allergy (Severe, Verified 03/04/23 09:15) RASH penicillin V Allergy (Unknown, Verified 03/04/23 09:15) rash naproxen Adverse Reaction (Intermediate, Verified 03/04/23 09:15) Dizziness naproxen Adverse Reaction (Intermediate, Uncoded 10/25/22 08:50) Weakness Medication List - Last Reconciled 03/04/23 by Julio House PA-C acetaminophen ER (Tylenol Arthritis Pain) 650 mg PO Q12H 30 days atorvastatin 20 mg PO DAILY 90 days blood pressure test kit-medium As directed blood sugar diagnostic (FreeStyle Lite Strips) TEST BLOOD SUGAR THREE TIMES DAILY blood-glucose meter (FreeStyle Lite Meter kit) As directed cholecalciferol (vitamin D3) 50 mcg PO DAILY 90 days cyclobenzaprine 5 mg PO BEDTIME 30 days dulaglutide (Trulicity) 0.75 mg (0.5 mL) subcut QWEEK 4 weeks fluticasone propionate 50 mcg/actuation 1 spray intranasal DAILY lancets (TRUEplus Lancets) 1 gauge miscellaneous BID 30 days lisinopril 20 mg PO DAILY metformin 500 mg PO BID 90 days sumatriptan succinate take 1 tab at onset of headache; if no relief may repeat 1 tab after at least 2 hrs; max = 4 tabs/24 hr PO triamcinolone acetonide 0.1% 1 appl topical DAILY 30 days Tobacco use date assessed: 07/26/22 Fall risk assessment: No Falls in past year Last assessed Fall Risk: 03/04/23 Dental Screening Dental Screen Date: 03/04/23 Did you have a dental visit in the last 12 months?: No Did you have a dental problem in the last 6 months where you did not have access to dental care?: No Was dental information given to patient?: Patient has dentist HPI f/u DMII/ HTN/ HLD HPI Details Patient is a 63-year-old female here today for a follow-up visit. ?Patient has a past medical history significant for type 2 diabetes, hypertension hyperlipidemia. Concerns--> continues to joint pains though have been bit better since reducing statin dose. ?Type 2 diabetes: .? Today's A1c-7.2 from 7.0 .? She continues on Trulicity and metformin. ? She has stopped eating a lot of carbohydrate rich foods. ?Has been seen by her Eye doctor and has no Retinopathy.. PLAN: Will increase her Trulicity dose to 1.5 weekly for better glycemic control and added benefit of weight loss. . ? .. ? Hypertension:? Blood pressure today in office acceptable.? Continues on lisinopril 20 mg with good effect. Has been off metoprolol. ?? ,? Otherwise denies any chest pain, haley dizziness, headache PFSH Medical History (Updated 10/25/22 @ 10:03 by Julio House PA-C) Pelvic prolapse H/O: osteoarthritis History of depression H/O diabetes mellitus Hx of migraine headaches Hypertension Trigger finger of left hand Osteoporosis Depression Surgical History History of pelvic surgery History of tubal ligation Family History Father Diabetes Mental health disorder Substance use disorder Mother Diabetes Substance use disorder Maternal Grandmother No problems noted. Maternal Grandfather No problems noted. Paternal Grandmother No problems noted. Paternal Grandfather No problems noted. Sister Substance use disorder Brother Substance use disorder Social History Housing: Apartment Alcohol intake: never Patient Tobacco Use Status: Never used Tobacco e-Cigarette/Vaping Use: Never Used Second Hand Smoke Exposure: No service: No Current occupational status: disabled Current occupation: [employer]/ rt hand Cognitive needs: No Hearing needs: No Vision needs: No Questionnaire Thrive Questionnaire Date Thrive assessed: 07/26/22 GALILEA-7 AMB Questionnaire GALILEA-7 Date GALILEA - 7 assessed: 07/26/22 Source: Developed by Drs. Aly Suarez, Soila Wagoner, Carl Altman and colleagues, with an educational srintah from [employer]. Review of Systems Const Denies headache(s) Eyes Denies loss of vision ENT Denies vertigo, Denies dizziness, Denies headache(s) and Denies sore throat Card Denies chest pain, Denies leg edema and Denies lightheadedness Resp Denies cough, Denies hemoptysis and Denies wheezing GI Denies abdominal pain, Denies melena, Denies constipation, Denies diarrhea and Denies vomiting Denies urinary frequency, Denies dysuria and Denies urinary urgency Musc Denies arthralgias, Denies joint swelling, Denies numbness and Denies tingling Neuro Denies Abnormal speech present, Denies behavioral changes, Denies vertigo, Denies dizziness, Denies headache(s), Denies loss of vision, Denies memory loss, Denies numbness and Denies tingling Psych Denies anxiety, Denies behavioral changes, Denies depression, Denies memory loss and Denies panic attacks Gennaro/Lymph Denies easy bleeding and Denies easy bruising Aller/Immun Denies wheezing Physical exam (Primary Care) Vital Signs: Last Vital Signs Pulse 85 03/04/23 08:43 BP 128/82 03/04/23 08:43 Pulse Ox 98 03/04/23 08:43 Oxygen Delivery Method Room Air 03/04/23 08:43 BMI result Body Mass Index 31.0 BMI Assessment/Plan discussion: High Tobacco/Smoking Status: Tobacco use Status Tobacco use date assessed 07/26/22 03/04/23 08:45 Patient Tobacco Use Status Never used Tobacco 03/04/23 08:45 e-Cigarette/Vaping Use Never Used 03/04/23 08:45 Thrive Assessment: Date of Thrive Assessment Date Thrive assessed 07/26/22 03/04/23 08:45 Const Other: Obese General: healthy appearing, no acute distress, alert and awake Nutritional Appearance: well nourished Orientation/consciousness: oriented to person, oriented to place and oriented to time HENMT Ears: TM's normal bilaterally General nose exam: Normal nasal mucous membranes and turbinates present Eyes Conjunctivae: conjunctivae normal Sclerae: sclerae normal Pupils: Equal, round and reactive pupils present Neck Neck: Yes no lymphadenopathy and Yes no JVD Thyroid: Thyroid normal Carotids: no bruits Resp Effort & Inspection: normal respiratory effort and not tachypneic Auscultation: no crackles, no rales, no rhonchi and no wheezes Cardio Rate: regular rate Rhythm: regular rhythm Heart sounds: no murmurs and normal S1 and S2 GI Palpation (GI): Soft to palpation, nontender, no hepatomegaly and no splenomegaly Auscultation: normal bowel sounds Skin General skin exam: no rashes or lesions noted and dry skin Neuro General: oriented to person, oriented to place and oriented to time Cranial nerves: Yes Equal, round and reactive pupils present Speech: No Abnormal speech present Gait exam (Neuro): Normal gait present Motor exam (neuro): no tremor noted Extrem Right upper extremity: full ROM Left upper extremity: full ROM Right lower extremity: full ROM; no edema Left lower extremity: full ROM; no edema Psych Mental Status: mental status grossly normal Speech and movement: Normal speech and movement present Affect: normal affect Attitude: cooperative Thought process: Normal thought process present Results AMB Hemoglobin A1c AMB Hemoglobin A1c 7.2 % Last Edit by Clare See on 03/04/23 09:10 Results Reviewed Results Reviewed: Laboratory Last Values Hgb A1c (Clinic) 7.2 % (4.0-6.0) H 03/04/23 09:08 Assessment and Plan Assessment & Plan (1) HTN (hypertension): Code(s): I10 - Essential (primary) hypertension Qualifiers: Hypertension type: primary hypertension Qualified Code(s): I10 - Essential (primary) hypertension Plan: Patient's blood pressure acceptable today in office. Will continue lisinopril 20 mg with goal blood pressure remain below 140/90. (2) HLD (hyperlipidemia): Code(s): E78.5 - Hyperlipidemia, unspecified Qualifiers: Hyperlipidemia type: mixed hyperlipidemia Qualified Code(s): E78.2 - Mixed hyperlipidemia Plan: Most recent fasting lipid panel showed acceptable cholesterol and LDL. We have reduced her statin potency due to myalgias and joint pains. Goal LDL is to be below 100. (3) DMII (diabetes mellitus, type 2): Code(s): E11.9 - Type 2 diabetes mellitus without complications Qualifiers: Diabetes mellitus termite renewal inspector insulin use: with nursing home use Diabetes mellitus complication status: without complication Qualified Code(s): E11.9 - Type 2 diabetes mellitus without complications; Z79.4 - terminal operations supervisor (current) use of insulin Plan: Patient's type 2 diabetes suboptimally controlled with current anti-hyperglycemic medication. Will increase her Trulicity to 1.5 mg weekly. Will continue to follow A1c with goal A1c to be below 7.0 (4) Obese: Code(s): E66.9 - Obesity, unspecified Qualifiers: Obesity type: due to excess calories Obesity classification: adult class 1 (BMI 30 - 34.9) Serious obesity comorbidity presence: with serious comorbidity Body mass index: BMI 30.0-30.9 Qualified Code(s): E66.09 - Other obesity due to excess calories; Z68.30 - Body mass index [BMI]30.0-30.9, adult Plan: Has been able to lose a little bit of weight since last office visit. She reports she is fairly physically active and has been watching her diet. Orders: Orders Microalbumin, Random (w Creat) Today E11.9 - Type 2 diabetes mellitus without complications, Z79.4 - [facility] (current) use of insulin Lipid Panel Today E78.2 - Mixed hyperlipidemia AMB Hemoglobin A1c Today Z13.9 - Encounter for screening, unspecified Comprehensive [place]. Panel Fast Today E78.2 - Mixed hyperlipidemia Complete Blood Count no Diff Today E11.9 - Type 2 diabetes mellitus without complications, Z79.4 - terminal operations supervisor (current) use of insulin Medications: New dulaglutide (Trulicity) 1.5 mg (0.5 mL) subcut QWEEK 4 weeks 2 mL 3RF E11.9 - Type 2 diabetes mellitus without complications, Z79.4 - [facility] (current) use of insulin Discontinued dulaglutide (Trulicity) Discontinued Reason: Doctor's Order 0.75 mg (0.5 mL) subcut QWEEK 4 weeks 2 mL 3RF E11.9 - Type 2 diabetes mellitus without complications Coding Level of Care Code Est Pt Level 4 (93298) Diagnoses Primary hypertension I10 Hypertension type: primary hypertension Mixed hyperlipidemia E78.2 Hyperlipidemia type: mixed hyperlipidemia Type 2 diabetes mellitus without complication, with long-term current use of insulin E11.9; Z79.4 Diabetes mellitus nursing home insulin use: with termite renewal inspector use Diabetes mellitus complication status: without complication Class 1 obesity due to excess calories with serious comorbidity and body mass index (BMI) of 30.0 to 30.9 in adult E66.09; Z68.30 Obesity type: due to excess calories Obesity classification: adult class 1 (BMI 30 - 34.9) Serious obesity comorbidity presence: with serious comorbidity Body mass index: BMI 30.0-30.9
== END 2023-03-04 09:27 | disposition home or self-care (01) ==
PROVIDERS: PCP Physician Assistant; Visit Provider Physician Assistant
DX: I10 Essential (primary) hypertension (principal); E11.9 Type 2 diabetes mellitus without complications; Z79.4 Long term (current) use of insulin; E78.2 Mixed hyperlipidemia; E66.09 Other obesity due to excess calories; Z68.30 Body mass index [BMI] 30.0-30.9, adult
CPT/HCPCS: 83036; 99214

== ENCOUNTER 2023-04-12 11:20 | Inpatient (IN) | payer OTHER, SELFPAY ==
--- NOTE | ~2023-04-12 | US_ITS ---
EXAMINATION: US ABDOMEN LIMITED CLINICAL INFORMATION: Right upper quadrant pain, sudden onset.. COMPARISON: None available. TECHNIQUE: Real-time imaging of the right upper quadrant abdominal viscera. FINDINGS: PANCREAS: The pancreas is normal size but mildly echogenic. Peripancreatic fat borders are maintained. LIVER: Normal. The liver is normal in size. The liver contour is normal. Parenchymal echogenicity is normal. No focal hepatic lesion. There is no intrahepatic biliary duct dilatation seen. GALLBLADDER: Gallbladder wall thickness is 0.3 cm. The gallbladder is physiologically distended without evidence of stones, sludge, polyps, wall thickening or pericholecystic fluid. COMMON BILE DUCT: Normal in caliber measuring 0.3 cm in diameter. RIGHT KIDNEY: There is mild pelvic fullness. No hydronephrosis. No renal calculi or focal parenchymal lesions. The kidney measures 8.8 cm in maximum dimension. FREE FLUID: None. US/US abdomen limited IMPRESSION: 1. Mild echogenic pancreas but no focal lesion seen. 2. Mild right renal pelvic fullness. 3. Visualized liver, gallbladder, CBD and the right kidney is unremarkable.
--- NOTE | ~2023-04-12 | CT_ITS ---
EXAMINATION: CT ABDOMEN AND PELVIS WITH CONTRAST CLINICAL INFORMATION: Abdominal pain COMPARISON: Abdominal ultrasound performed same day TECHNIQUE: Multidetector volumetric images were obtained from the superior aspect of the liver through the pubic symphysis following administration 85 mL of Omnipaque 350 intravenous contrast. Sagittal and coronal reformatted images were obtained on the technologist's workstation. Oral contrast: No This CT examination was performed using dose optimization techniques as appropriate, variously including the following: *Automated exposure control *Adjustment of mA and/or kV according to patient size (this includes techniques or standardized protocols for targeted exams where dose is matched to indication/reason for exam; i.e. extremities or head) *Use of iterative reconstruction technique DLP: 667 mGy-cm FINDINGS: LUNG BASES: Unremarkable. ABDOMINAL AND PELVIC WALL: Small fat-containing umbilical hernia. LIVER AND BILIARY TREE: Question of subtle nodularity of the hepatic contour recommend correlation with risk factors for cirrhosis. GALLBLADDER: Unremarkable. PANCREAS: Unremarkable. SPLEEN: Unremarkable. ADRENAL GLANDS: Unremarkable. KIDNEYS AND URETERS: Bosniak 1 benign-appearing left renal cysts, imaging follow-up recommended. GASTROINTESTINAL TRACT: Small hiatal hernia. Multiple thick-walled fluid-filled loops of small bowel measuring within upper limits of normal measuring up to 3 cm with abnormal intramesenteric loop edema and some areas of angulation of the small bowel suggesting the possibility of underlying adhesions. No beronica transition point although loops become decompressed in the central pelvis with multiple clustered decompressed loops of small bowel limiting assessment. Constellation of findings raises the suspicion for developing small bowel obstruction. There is fecalization of bowel contents. Normal appendix. No pneumatosis or portal venous gas. Multilevel degenerative disc disease. Liver is enlarged measuring 18.4 cm in span. VASCULAR: Atherosclerosis of the abdominal aorta. LYMPH NODES/PERITONEUM: No lymphadenopathy. FREE FLUID: Small volume ascites. BLADDER: Unremarkable. PELVIC VISCERA: Unremarkable. OSSEOUS STRUCTURES: Unremarkable. CT/CT abdomen pelvis w IV con IMPRESSION: 1. Multiple thick-walled fluid-filled loops of small bowel measuring within upper limits of normal measuring up to 3 cm with abnormal intramesenteric loop edema and some areas of angulation of the small bowel suggesting the possibility of underlying adhesions. No beronica transition point although loops become decompressed in the central pelvis with multiple clustered decompressed loops of small bowel limiting assessment. Constellation of findings raises the suspicion for developing small bowel obstruction. There is fecalization of bowel contents. No pneumatosis or portal venous gas. 2. Question of subtle nodularity of the hepatic contour recommend correlation with risk factors for cirrhosis. Liver is enlarged measuring 18.4 cm in span. 3. Small volume ascites.
[2023-04-12 12:07] VITALS: BP 129/84; PULSE 91; RESP 16; TEMP 36.6; O2SAT 99
--- NOTE | 2023-04-12 12:07 | ED_ITS ---
HPI - Abdominal Pain General Chief Complaint: Abdominal Pain Stated Complaint: severe stomach pain Time Seen by Provider: 04/12/23 16:12 Source: patient Mode of arrival: ambulatory History of Present Illness HPI narrative: 63F p/w pain that started in RLQ this morning w/o N/V/F/C or dysuria. Pain has improved but still there. Related Data Previous Rx's Medication Instructions Recorded blood pressure test kit-medium #1 ea 08/10/21 blood-glucose meter (FreeStyle #1 ea 03/07/22 Lite Meter kit) acetaminophen 650 mg 650 mg PO Q12H 30 days #60 tabs 10/25/22 tablet,extended release (Tylenol Arthritis Pain) atorvastatin 20 mg tablet 20 mg PO DAILY 90 days #90 tabs 10/25/22 cholecalciferol (vitamin D3) 50 50 mcg PO DAILY 90 days #90 tabs 10/25/22 mcg (2,000 unit) tablet cyclobenzaprine 5 mg tablet 5 mg PO BEDTIME 30 days #30 tabs 10/25/22 lisinopril 20 mg tablet 20 mg PO DAILY #90 tabs 10/25/22 metformin 500 mg tablet 500 mg PO BID 90 days #180 tabs 10/25/22 sumatriptan succinate 25 mg tablet See Rx Instructions PO .COMPLEX #9 10/25/22 tabs triamcinolone acetonide 0.1 % 1 appl topical DAILY 30 days #80 10/25/22 topical cream grams blood sugar diagnostic (FreeStyle #100 strips 10/29/22 Lite Strips) lancets 33 gauge (TRUEplus Lancets) 1 gauge miscellaneous BID for 12/05/22 diabetes mellitus 30 days #100 ea fluticasone propionate 50 1 spray intranasal DAILY #16 grams 12/23/22 mcg/actuation nasal spray,suspension dulaglutide 1.5 mg/0.5 mL 1.5 mg (0.5 mL) subcut QWEEK 4 03/04/23 subcutaneous pen injector weeks #2 mL (Trulicity) Allergies Allergy/AdvReac Type Severity Reaction Status Date / Time Penicillins [PENICILLINS] Allergy Severe RASH Verified 03/04/23 09:15 penicillin V Allergy Unknown rash Verified 03/04/23 09:15 naproxen AdvReac Intermediate Dizziness Verified 03/04/23 09:15 naproxen AdvReac Intermediate Weakness Uncoded 10/25/22 08:50 Review of Systems Review of Systems Pertinent positives and negatives as stated in the [facility] Past Medical History Source: nursing notes reviewed Onset Date is defined in the Problem List Problems that require an onset date and time if occurred within 24 hrs of arrival to the ED Aortic Dissection and Rupture; Neurologic impairment; Cardiopulmonary Arrest; Endotracheal Intubation; Insertion or Replacement of Mechanical Circulatory Assist Device Medical History Pelvic prolapse H/O: osteoarthritis History of depression H/O diabetes mellitus Hx of migraine headaches Hypertension Trigger finger of left hand Osteoporosis Depression Surgical History History of pelvic surgery History of tubal ligation Family History Family History Father Diabetes Mental health disorder Substance use disorder Mother Diabetes Substance use disorder Maternal Grandmother No problems noted. Maternal Grandfather No problems noted. Paternal Grandmother No problems noted. Paternal Grandfather No problems noted. Sister Substance use disorder Brother Substance use disorder Social History Social History Housing: Apartment Alcohol intake: never Patient Tobacco Use Status: Never used Tobacco Smoked in Last 30 Days: Yes e-Cigarette/Vaping Use: Never Used Second Hand Smoke Exposure: No Use of substances other than those prescribed or required for medical reasons: No Advance Directives: No Advance Directives Information Provided: No service: No Current occupational status: disabled Current occupation: [employer]/ rt hand Cognitive needs: No Hearing needs: No Vision needs: No Physical Exam ED Vital Signs: Vital Signs - 24 hr 04/12/23 12:07 04/12/23 16:44 Temperature 97.9 F 99.1 F Pulse Rate 91 81 Respiratory Rate 16 16 Blood Pressure 129/84 126/81 Pulse Oximetry 99 97 Oxygen Delivery Method Room Air Room Air BMI result Body Mass Index 30.0 VITAL SIGNS: Reviewed. GENERAL: Well developed, well nourished, in no acute distress. HEAD: Normocephalic/atraumatic EYES: PERRLA, EOMI EARS: Ext canals without abnormality NOSE: Nares patent bilateral OROPHARYNX: no oral lesions noted, posterior pharynx clear NECK: Supple, no adenopathy LUNGS: Normal breath sounds. No adventitious sounds or accessory muscle use. SpO2<99> CARDIOVASCULAR: Regular rate and rhythm without noted murmurs ABDOMEN: Soft, right lower quadrant/mid lower abdomen pain on deep palpation without rebound, non-distended with bowel sounds. MUSCULOSKELETAL: No tenderness, deformities, or effusions noted on gross inspection. EXTREMITIES: No cyanosis, clubbing or edema. SKIN: Inspection of the skin reveals no rashes NEUROLOGIC: Alert and oriented x 4. Strength and sensation to light touch were grossly intact x 4. Course Course Course Narrative: This is an RME: Additional HPI, ROS, PE not included below will be deferred to primary provider. Patient is a 63 old female who presents emergency department for evaluation of abdominal pain. She reports she Awoke at 0500 had coffee, toast with peanut butter and felt fine. Sudden onset RUQ pain at 0830, still there, constant in nature with varying intensity, bloating. Pain alleviate some if she applies pressure to the right upper quadrant and is worse wall walking or moving around. Denies URI symptoms or shortness of breath. Denies any past history of similar pain. Denies associated nausea/vomiting/constipation/diarrhea/genitourinary symptoms. Plan: Labs, UA, right upper quadrant ultrasound Medical Decision Making Medical Decision Making MDM Narrative: 63F w/hx and presentation, DDX: SBO, renal colic, appendicitis, early diverticulitis, low suspicion for cholecystitis/UTI 1700: I suspect infection and there is no SIRS response at this time. I reviewed all investigations and hematologic indices are significant for leukocytosis without SIRS response, there is an associated left shift but no anemia or thrombocytopenia. Chemistry indices demonstrate a mildly elevated potassium and no BARRY but noted low magnesium level which was repleted with 2 g of magnesium sulfate and lipase is within normal limits. Patient received 1 L of IV fluids and remains hemodynamically stable. CT scan demonstrates findings suggestive of early small-bowel obstruction and otherwise small amount of ascites. 1748: I discussed the case with general surgeon, Dr. Hernandez who accepts the patient for admission and requests hospitalist consultation. Differential Diagnosis Differential Diagnoses: The differential diagnosis associated with the presentation includes Please see the discussion above Admission/Observation Consideration of admission/observation: Escalation of care including admission/observation considered Please see the discussion above Consult Healthcare Provider Management of the patient was discussed with: Hospitalist and Automotive Mechanic Please see the discussion above Lab Data MDM Lab Attestation statement: I reviewed the patient's lab results. Please see the discussion above 04/12/23 13:24 04/12/23 13:24 Labs: Lab Results 04/12/23 04/12/23 04/12/23 Range/Units 13:24 13:28 16:10 WBC 17.3 H (4.8-10.8) X10*3/uL RBC 4.65 (4.20-5.50) X10*6/uL Hgb 13.7 (12.0-16.0) g/dl Hct 41.7 (37.0-47.0) % MCV 89.7 (80.0-98.0) fL MCH 29.5 (27.0-33.0) pg MCHC 32.9 (31.0-35.0) g/dl RDW 13.6 (11.0-16.0) % Plt Count 274 D (160-400) X10*3/uL MPV 9.7 (9.4-12.3) fL Immature Gran % (Auto) 0.5 H (0.0-0.4) % Neut % (Auto) 81.5 H (45-73) % Lymph % (Auto) 13.0 L (20-40) % Boyle % (Auto) 4.6 (2-11) % Eos % (Auto) 0.2 (0-4) % Baso % (Auto) 0.2 (0-2) % Lymph # (Auto) 2.3 (1.2-4.9) X10*3/uL Boyle # (Auto) 0.8 (0.1-1.2) X10*3/uL Eos # (Auto) 0.0 (0.0-0.4) X10*3/uL Baso # (Auto) 0.0 (0.0-0.2) X10*3/uL Abs Immat Gran (auto) 0.08 H (0.00-0.03) X10*3/uL Absolute Neuts (auto) 14.1 H (2.0-8.3) x10*3/uL Absolute Nucleated RBC 0.000 (0.0-0.012) X10*3/uL Nucleated RBC % (auto) 0.0 (0.0-0.2) /100WBC Sodium 135 (135-145) mmol/L Potassium 5.3 H (3.3-5.1) mmol/L Chloride 104 (96-108) mmol/L Carbon Dioxide 25 (22-29) mmol/L Anion Gap 11 L (12-20) BUN 21 H (9-16) mg/dL Creatinine 0.87 (0.5-1.4) mg/dL Estim Creat Clear Calc 61.6 Estimated GFR > 60 POC Glucose 155 H 146 H (60-115) mg/dL Random Glucose 166 H (60-115) mg/dL Calcium 9.2 D (8.4-10.2) mg/dL Magnesium 1.3 L* (1.6-2.6) mg/dL Total Bilirubin 0.3 (0.0-1.0) mg/dL AST 23 (5-31) U/L ALT 11 (0-31) U/L Alkaline Phosphatase 72 (39-117) U/L Total Protein 7.4 (6.5-8.0) g/dL Albumin 4.0 (3.5-5.0) g/dL Lipase 22 (8-78) U/L Urine Color Dark Yellow Urine Appearance Clear Urine pH 5.0 (5.0-9.0) Ur Specific [place] 1.025 (1.005-1.025) Urine Protein Trace (Neg-Trace) mg/dL Urine Glucose (UA) Negative (Negative) mg/dL Urine Ketones Trace (Negative) mg/dL Urine Blood Negative (Negative) Urine Nitrite Negative (Negative) Ur Leukocyte Esterase Trace H (Negative) Urine RBC 0-2 (0-2) /HPF Urine WBC 0-5 (0-5) /HPF Ur Squamous Epith Cells 6-10 (0-2) /HPF Urine Bacteria None Seen (None Seen) Hyaline Casts 0-2 (0-2) /LPF Independent Interpretation I performed an independent interpretation of an: EKG Interpretation: Normal sinus rhythm, HR-86, no STEMI, [place]/QRS/QTC is within normal limits. Radiology Impression Discussion of test interpretation with radiology: I have reviewed the radiologist's reading. Radiologist Impression: Please see the discussion above External Record Review External record reviewed: Outpatient record, Prior outpatient labs and Prior outpatient radiology Chronic Conditions Patient?s care impacted by: Diabetes Medications Administered Discontinued Medications Generic Name Dose Route Start Last Admin Trade Name Janette PRN Reason Stop Dose Admin Sodium Chloride 1,000 mls @ 999 mls/hr 04/12/23 16:15 04/12/23 16:41 Ns IV 04/12/23 17:15 999 mls/hr .Q1H1M LUCINDA Administration Magnesium Sulfate 2 gm in 50 mls @ 150 mls/hr 04/12/23 16:12 04/12/23 17:07 Magnesium Sulfate/H2o IV 04/12/23 16:31 Infused ONCE ONE Infusion Iohexol 100 ml 04/12/23 17:15 04/12/23 17:16 Iohexol 350 Mg/Ml 100 Ml Infus..Btl IV 04/12/23 17:16 85 ml ONCE ONE Administration Critical Care Time Critical Care Time Critical Care Time: Yes Total Critical Care Time: 45 Attestation: I personally attest to this time spent taking care of the patient. Discharge Plan Discharge Clinical Impression: SBO (small bowel obstruction), Abdominal pain Patient Disposition: Admitted As Inpatient Prescriptions: No Action (DME) blood-glucose meter [FreeStyle Lite Meter] Kit See Rx Instructions .Route Qty: 1 0RF Rx Instructions: As directed (DME) FreeStyle Lite Strips Strip See Rx Instructions .ROUTE .COMPLEX Qty: 100 11RF Dose Instruction: TEST BLOOD SUGAR THREE TIMES DAILY Rx Instructions: TEST BLOOD SUGAR THREE TIMES DAILY lancets [TRUEplus Lancets] 33 gauge misc 1 gauge miscellaneous BID 30 Days Qty: 100 3RF fluticasone propionate 50 mcg/actuation spray,suspension 1 spray intranasal DAILY Qty: 16 3RF (DME) blood pressure test kit-medium Kit See Rx Instructions .Route Qty: 1 0RF Rx Instructions: As directed atorvastatin 20 mg tablet 20 mg PO DAILY 90 Days Qty: 90 1RF acetaminophen [Tylenol Arthritis Pain] 650 mg tablet extended release 650 mg PO Q12H 30 Days Qty: 60 3RF cholecalciferol (vitamin D3) 50 mcg (2,000 unit) tablet 50 mcg PO DAILY 90 Days Qty: 90 3RF cyclobenzaprine 5 mg tablet 5 mg PO BEDTIME 30 Days Qty: 30 6RF lisinopril 20 mg tablet 20 mg PO DAILY Qty: 90 1RF metformin 500 mg tablet 500 mg PO BID 90 Days Qty: 180 1RF sumatriptan succinate 25 mg tablet See Rx Instructions PO .COMPLEX Qty: 9 3RF Rx Instructions: take 1 tab at onset of headache; if no relief may repeat 1 tab after at least 2 hrs; max = 4 tabs/24 hr PO triamcinolone acetonide 0.1 % cream 1 appl topical DAILY 30 Days Qty: 80 3RF Trulicity 1.5 mg/0.5 mL pen injector 1.5 mg subcut QWEEK 28 Days Qty: 2 3RF
[2023-04-12 13:31] LABS: MANUAL DIFF FLAG NO
[2023-04-12 13:33] LABS: Glucose, Whole Blood 155 mg/dL (60-115)
[2023-04-12 13:34] LABS: Appearance Urine Clear; Basophils Percent Auto 0.2 % (0-2); Color Urine Dark Yellow; Eosinophils Percent Auto 0.2 % (0-4); Glucose Urine UA Negative (Negative); Hematocrit 41.7 % (37.0-47.0); Hemoglobin 13.7 g/dl (12.0-16.0); Imm Gran Abs Auto 0.08 X10*3/uL (0.00-0.03); Imm Gran Pct Auto 0.5 % (0.0-0.4); Leukocyte Esterase Urine Trace (Negative); Lymphocytes Absolute Auto 2.3 X10*3/uL (1.2-4.9); Mean Corpuscular HGB Conc 32.9 g/dl (31.0-35.0); Mean Corpuscular Hemoglobin 29.5 pg (27.0-33.0); Mean Corpuscular Volume 89.7 fL (80.0-98.0); Mean Platelet Volume 9.7 fL (9.4-12.3); Monocytes Absolute Auto 0.8 X10*3/uL (0.1-1.2); Monocytes Percent Auto 4.6 % (2-11); Neutrophils Absolute Auto 14.1 x10*3/uL (2.0-8.3); Neutrophils Percent Auto 81.5 % (45-73); Nitrite Urine Negative (Negative); Platelet Count 274 X10*3/uL (160-400); Red Blood Count 4.65 X10*6/uL (4.20-5.50); Red Cell Distribution Width 13.6 % (11.0-16.0); Specific Gravity - Urine 1.025 (1.005-1.025); UMIC TRIGGER UACC YES; Urine Blood Negative (Negative); Urine Ketones Trace mg/dL (Negative); Urine Protein Trace mg/dL (Neg-Trace); White Blood Count 17.3 X10*3/uL (4.8-10.8)
[2023-04-12 13:38] LABS: Bacteria Urine None Seen (None Seen); Hyaline Casts Urine 0-2 /LPF (0-2); RBC Urine 0-2 /HPF (0-2); WBC Urine 0-5 /HPF (0-5)
[2023-04-12 14:01] LABS: Alanine Aminotransferase 11 U/L (0-31); Alkaline Phosphatase 72 U/L (39-117); Anion Gap 11 (12-20); Aspartate Amino Transferase 23 U/L (5-31); Bilirubin Total 0.3 mg/dL (0.0-1.0); Blood Urea Nitrogen 21 mg/dL (9-16); Calcium 9.2 mg/dL (8.4-10.2); Carbon Dioxide 25 mmol/L (22-29); Chloride 104 mmol/L (96-108); Creatinine Clr Calc Pharmacy 61.6; Estimated Glomerular Filt Rate > 60; Glucose Random 166 mg/dL (60-115); Lipase 22 U/L (8-78); Magnesium 1.3 mg/dL (1.6-2.6); Potassium 5.3 mmol/L (3.3-5.1); Sodium 135 mmol/L (135-145); Total Protein 7.4 g/dL (6.5-8.0)
--- NOTE | 2023-04-12 14:01 | ECG_ITS ---
Test Reason : ABNORMAL LABS Blood Pressure : / mmHG Vent. Rate : 086 BPM Atrial Rate : 086 BPM P-R Int : 138 ms QRS Dur : 082 ms QT Int : 350 ms P-R-T Axes : 033 -03 059 degrees QTc Int : 418 ms Normal sinus rhythm Normal ECG When compared with ECG of 17-SEP-2006 23:43, QRS voltage has decreased Referred By: Silvia Cervantes Electronically Signed By:ELIZABETH SOTO MD
[2023-04-12 16:40] LABS: Glucose, Whole Blood 146 mg/dL (60-115)
[2023-04-12] MEDS: 0.9 % Sodium Chloride 1,000 ML 999 ML IV (16:41)
[2023-04-12] MEDS: Magnesium Sulfate/H2O 2 GM/50 ML PIGGYBACK IV (16:42)
[2023-04-12 16:44] VITALS: BP 126/81; PULSE 81; RESP 16; TEMP 37.3; O2SAT 97
[2023-04-12] MEDS: iohexoL 350 MG/ML 100 ML INFUS..BTL IV (17:16)
[2023-04-12 19:33] VITALS: BP 142/85; PULSE 91; RESP 17; TEMP 37.2; O2SAT 98
[2023-04-12 19:45] LABS: Lactic Acid 1.1 mmol/L (0.5-2.0)
[2023-04-12 19:47] LABS: Anion Gap 12 (12-20); Blood Urea Nitrogen 17 mg/dL (9-16); Carbon Dioxide 21 mmol/L (22-29); Chloride 108 mmol/L (96-108); Creatinine Clr Calc Pharmacy 64.6; Estimated Glomerular Filt Rate > 60; Glucose Random 142 mg/dL (60-115); Potassium 4.4 mmol/L (3.3-5.1); Sodium 137 mmol/L (135-145)
[2023-04-12] MEDS: Enoxaparin Sodium 40 MG/0.4 ML SYRINGE SUBCUT (20:19)
[2023-04-12] MEDS: cefEPime HCl 1 GM in 0.9 % Sodium Chloride 50 ML IV (20:19)
[2023-04-12 21:30] LABS: Glucose, Whole Blood 130 mg/dL (60-115)
[2023-04-12] MEDS: Dextrose 5 % and Lactated Ring 1,000 ML 125 ML IVCONT (21:33)
[2023-04-12 21:36] VITALS: BP 123/68; PULSE 85; RESP 18; TEMP 36.1; O2SAT 97
[2023-04-12 23:34] VITALS: BP 134/78; PULSE 67; RESP 16; TEMP 36.7; O2SAT 99
[2023-04-12 23:47] VITALS: BP 134/78; PULSE 68; RESP 16; TEMP 36.5; O2SAT 98
[2023-04-13 04:00] VITALS: BP 116/68; PULSE 69; RESP 16; TEMP 37.1; O2SAT 99
[2023-04-13] MEDS: Dextrose 5 % and Lactated Ring 1,000 ML 125 ML IVCONT ×2 (04:29→12:56)
[2023-04-13 07:04] VITALS: BP 117/70; PULSE 65; RESP 16; TEMP 36.6; O2SAT 98
[2023-04-13 07:10] LABS: Glucose, Whole Blood 183 mg/dL (60-115)
[2023-04-13 07:21] LABS: MANUAL DIFF FLAG NO
[2023-04-13 07:29] LABS: Basophils Percent Auto 0.2 % (0-2); Eosinophils Absolute Auto 0.2 X10*3/uL (0.0-0.4); Eosinophils Percent Auto 1.7 % (0-4); Hematocrit 33.2 % (37.0-47.0); Hemoglobin 11.1 g/dl (12.0-16.0); Imm Gran Abs Auto 0.04 X10*3/uL (0.00-0.03); Imm Gran Pct Auto 0.3 % (0.0-0.4); Lymphocytes Absolute Auto 1.5 X10*3/uL (1.2-4.9); Lymphocytes Percent Auto 12.3 % (20-40); Mean Corpuscular HGB Conc 33.4 g/dl (31.0-35.0); Mean Corpuscular Hemoglobin 29.8 pg (27.0-33.0); Mean Corpuscular Volume 89.2 fL (80.0-98.0); Mean Platelet Volume 10.2 fL (9.4-12.3); Monocytes Absolute Auto 0.9 X10*3/uL (0.1-1.2); Monocytes Percent Auto 6.9 % (2-11); Neutrophils Absolute Auto 9.7 x10*3/uL (2.0-8.3); Neutrophils Percent Auto 78.6 % (45-73); Platelet Count 213 X10*3/uL (160-400); Red Blood Count 3.72 X10*6/uL (4.20-5.50); Red Cell Distribution Width 13.8 % (11.0-16.0); White Blood Count 12.4 X10*3/uL (4.8-10.8)
[2023-04-13] MEDS: cefEPime HCl 1 GM in 0.9 % Sodium Chloride 50 ML IV (07:48)
[2023-04-13 07:51] LABS: Magnesium 1.6 mg/dL (1.6-2.6)
--- NOTE | 2023-04-13 07:57 | PHA.MEDREC ---
Pharmacy Consult ? Medication Reconciliation Pharmacy has completed the medication reconciliation.
--- NOTE | 2023-04-13 08:46 | P.HPGS_ITS ---
History of Present Illness History of Present Illness Date of Service: 04/13/23 Chief complaint: partial small bowel obs, adhesions Narrative: Brigitte Mojica is a 63 year old female presenting with complaints of abdominal pain in the right upper quadrant. The pain began approximately 2 hours after eating a croissant with peanut butter. She denies a previous history of similar pain. She reports some nausea but denies any vomiting, fever, chills, diarrhea or constipation. She denies a previous history of acid reflux or heartburn. She presented to the emergency department and was noted to have tenderness in the right both upper and lower quadrants. Laboratories revealed an elevated WBC. CT revealed bowel wall thickening and dilatation suggestive of an early small-bowel obstruction. Also noted was ascites in the right upper quadrant. She was admitted to the surgical service and placed on IV antibiotics. This morning the patient feels much improved with no further pain or nausea. Review of Systems Review of Systems: Yes all other systems are reviewed and are negative Gastrointestinal: Gastrointestinal: Reports abdominal pain, Denies dyspepsia, Denies heartburn, Reports nausea and Denies vomiting Musculoskeletal: Musculoskeletal: Reports back pain PMFSH Past Medical History Medical History Pelvic prolapse H/O: osteoarthritis History of depression H/O diabetes mellitus Hx of migraine headaches Hypertension Trigger finger of left hand Osteoporosis Depression Family History Family History Father Diabetes Mental health disorder Substance use disorder Mother Diabetes Substance use disorder Maternal Grandmother No problems noted. Maternal Grandfather No problems noted. Paternal Grandmother No problems noted. Paternal Grandfather No problems noted. Sister Substance use disorder Brother Substance use disorder Surgical History Surgical History History of pelvic surgery History of tubal ligation Social History Social History Household Members: None Housing: Apartment Do you presently have visiting nurse or other home services: No Alcohol intake: never Patient Tobacco Use Status: Never used Tobacco Smoked in Last 30 Days: No e-Cigarette/Vaping Use: Never Used Patient Interested in Nicotine Replacement: No Patient Given Instructions on How to Stop Smoking: No Second Hand Smoke Exposure: No Use of substances other than those prescribed or required for medical reasons: No Currently Displaying Signs/Symptoms of Drug Intoxication Withdrawal: No Any prior treatment program specific to substance use: No Have you been hit, kicked, punched, or otherwise hurt by someone within the past year? If so, by whom?: No Do you feel safe in your current relationship?: No Current Relationship Is there a partner from a previous relationship who is making you feel unsafe now?: No Are you made to feel afraid or neglected: No Advance Directives: No Advance Directives Information Provided: No Advance Directives on File: No Do you have thoughts of harming others: None Do you have a plan to hurt others: No Plan Recently lost weight without trying: Yes How much weight loss: 2-13 pounds Eating poorly because of decreased appetite: No Nutrition screen score: 3 Nutrition Risks: No Nutritional Risk Patient : No : No Poor oral hygiene: No service: No Current occupational status: disabled Current occupation: [employer]/ rt hand Cognitive needs: No Hearing needs: No Vision needs: No Meds Allergies Allergy/AdvReac Type Severity Reaction Status Date / Time Penicillins [PENICILLINS] Allergy Severe RASH Verified 03/04/23 09:15 penicillin V Allergy Unknown rash Verified 03/04/23 09:15 naproxen AdvReac Intermediate Dizziness Verified 03/04/23 09:15 naproxen AdvReac Intermediate Weakness Uncoded 10/25/22 08:50 Active Medications: Current Medications Dextrose (Dextrose 50 % 25 Gm/50 Ml Syringe) 25 gm IVPUSH Q15M PRN; Protocol PRN Reason: per Hypoglycemia Standing Ord. Enoxaparin Sodium (Enoxaparin Sodium 40 Mg/0.4 Ml Syringe) 40 mg SUBCUT Q24H COUNT INCLUDES THE [facility] Last Admin: 04/12/23 20:19 Dose: 40 mg Glucose (Glucose Gel 15 Gm Gel..Gram.) 15 gm PO Q15M PRN; Protocol PRN Reason: per Hypoglycemia Standing Ord. Hydromorphone HCl (Hydromorphone Hcl 0.5 Mg/0.5 Ml Syringe) 0.5 mg IVPUSH Q3H PRN; Protocol PRN Reason: Pain, Severe (Pain Scale 7-10) Dextrose/Lactated Ringer's (D5lr) 1,000 mls @ 125 mls/hr IVCONT .Q8H COUNT INCLUDES THE [facility] Last Admin: 04/13/23 04:29 Dose: 125 mls/hr Cefepime HCl 1 gm/ Sodium (Chloride) 50 mls @ 100 mls/hr IV Q12H COUNT INCLUDES THE [facility] Last Infusion: 04/13/23 08:29 Dose: Infused Insulin Human Lispro (Insulin Lispro 100 Unit/Ml 3 Ml Vial) 0 unit SUBCUT QIDACHS COUNT INCLUDES THE [facility]; Protocol Ondansetron HCl (Ondansetron Hcl 4 Mg/2 Ml Vial) 4 mg IVPUSH QID PRN PRN Reason: Nausea Sodium Chloride (0.9 % Sodium Chloride Flush 3 Ml Syringe) 3 ml IVFLUSH QSHIFT COUNT INCLUDES THE [facility] Last Admin: 04/13/23 07:49 Dose: Not Given Zolpidem Tartrate (Zolpidem Tartrate 5 Mg Tablet) 5 mg PO BEDTIME PRN PRN Reason: Insomnia Home Medications Medication Instructions Recorded Confirmed Last Taken Type acetaminophen 650 mg 650 mg PO Q12H PRN Pain 04/12/23 04/12/23 Unknown History tablet,extended release (Tylenol Arthritis Pain) cyclobenzaprine 5 mg tablet 5 mg PO BEDTIME PRN muscle spasms 04/12/23 04/12/23 Unknown History dulaglutide 1.5 mg/0.5 mL 1.5 mg subcut FR 04/12/23 04/12/23 04/05/23 History subcutaneous pen injector (Trulicity) fluticasone propionate 50 1 spray intranasal DAILY PRN 04/12/23 04/12/23 Unknown History mcg/actuation nasal Congestion spray,suspension metformin 500 mg tablet 500 mg PO DAILY 04/12/23 04/12/23 04/11/23 History naproxen 500 mg tablet 500 mg PO BID PRN pain 04/12/23 04/12/23 Unknown History sumatriptan succinate 25 mg tablet 25 mg PO DAILY MRX1 04/12/23 04/12/23 Unknown History triamcinolone acetonide 0.1 % 1 appl topical DAILY PRN Rash 04/12/23 04/12/23 Unknown History topical cream Physical Exam Vital Signs: Vital Signs: Last Vital Signs Temp 98 F 04/13/23 07:04 Pulse 65 04/13/23 07:04 Resp 16 04/13/23 07:04 BP 117/70 04/13/23 07:04 Pulse Ox 98 04/13/23 07:04 O2 Del Method Room Air 04/13/23 07:04 BMI result Body Mass Index 30.0 Const: General: no acute distress and well developed Nutritional Appearance: well nourished Orientation/consciousness: patient oriented x3 Limitations: no limitations HEENT: Head: Yes normocephalic and Yes atraumatic Resp: Effort & Inspection: normal respiratory effort, no audible wheezes, no cough and no respiratory distress GI: Inspection: Yes normal to inspection Palpation (GI): Soft to palpation, nontender, no guarding, not rigid and No Rebound tenderness present Percussion: Yes normal to percussion Auscultation: normal bowel sounds Skin: General skin exam: no rashes or lesions noted Neuro: General: patient oriented x3 Extrem: General: Yes no clubbing, cyanosis or edema Results Results Labs: Short CBC 04/12/23 04/13/23 Range/Units 13:24 06:35 WBC 17.3 H 12.4 H (4.8-10.8) X10*3/uL Hgb 13.7 11.1 L (12.0-16.0) g/dl Hct 41.7 33.2 L D (37.0-47.0) % Plt Count 274 D 213 (160-400) X10*3/uL BMP 04/12/23 04/12/23 13:24 19:22 Sodium 135 137 Potassium 5.3 H 4.4 Chloride 104 108 Carbon Dioxide 25 21 L BUN 21 H 17 H Creatinine 0.87 0.83 Calcium 9.2 D 9.0 Liver Function 04/12/23 Range/Units 13:24 Total Bilirubin 0.3 (0.0-1.0) mg/dL AST 23 (5-31) U/L ALT 11 (0-31) U/L Alkaline Phosphatase 72 (39-117) U/L Albumin 4.0 (3.5-5.0) g/dL Urine 04/12/23 Range/Units 13:24 Urine Color Dark Yellow Urine Appearance Clear Urine pH 5.0 (5.0-9.0) Ur Specific [place] 1.025 (1.005-1.025) Urine Protein Trace (Neg-Trace) mg/dL Urine Glucose (UA) Negative (Negative) mg/dL Assessment and Plan (1) Abdominal pain: Qualifiers: Abdominal location: right upper quadrant Qualified Code(s): R10.11 - Right upper quadrant pain Status: Acute (2) SBO (small bowel obstruction): Status: Acute Plan 63-year-old female patient presenting with a new onset abdominal pain in the right upper quadrant after eating a croissant with peanut butter. The pain was severe enough to present to the emergency department for further evaluation. CT revealed possible signs of an early small-bowel obstruction however this morning the patient feels much improved with no further abdominal pain. She is hungry and would like to try food. On examination her abdomen is soft and nondistended with no tenderness, rebound or guarding. Will start on clear liquids this morning and if tolerated advance to regular diet for lunch. If this is tolerated she may be discharged to home. Patient expressed understanding and agrees with the plan. Quality Stroke Does the patient have a stroke diagnosis?: No VTE Prior VTE?: No VTE Risk Level:: Surgical - moderate VTE Device Contraindication: N/A - Device Ordered VTE Drug Contraindication: N/A - Med Ordered Procedures Date of Service Date of Service: 04/13/23
--- NOTE | 2023-04-13 10:03 | P.CONHOSP_ITS ---
History of Present Illness Data of Consult Service Date: 04/13/23 Requesting physician: Hilaria Hill Primary Care Provider: Julio House PA-C [facility] Reason for consult: med management 63 y/o F with pmhx dm ,htn ,overweight came c/o abd pain Ruq started after eating a croissant with peanut butter,no similar episode in the past , denies any vomiting, fever, chills, diarrhea or constipation. CT revealed bowel wall thickening and dilatation suggestive of an early small-bowel obstruction. admitted to surgery service for above . hospitalist consult called for dm management . currently pain seems to be improved significantly. passing gases ,she also said passing bm's, wants to try food. ,patient did not have fever or chills or urinary or respiratory c/o or uri like symptoms. labs imaging reviewed : cbc : wbc 17.3 -12.[address] abd :as above in hpi. ?liver enlarged ,even though on abd sono-liver seems fine,lfts also normal. also lung bases -Unremarkable. has hypomagnesmia 1.3 blood cultures -pending Review of Systems 2 Review of Systems: Yes all other systems are reviewed and are negative [facility] Medical History Pelvic prolapse H/O: osteoarthritis History of depression H/O diabetes mellitus Hx of migraine headaches Hypertension Trigger finger of left hand Osteoporosis Depression Family History Father Diabetes Mental health disorder Substance use disorder Mother Diabetes Substance use disorder Maternal Grandmother No problems noted. Maternal Grandfather No problems noted. Paternal Grandmother No problems noted. Paternal Grandfather No problems noted. Sister Substance use disorder Brother Substance use disorder Surgical History History of pelvic surgery History of tubal ligation Social History Household Members: None Housing: Apartment Do you presently have visiting nurse or other home services: No Alcohol intake: never Patient Tobacco Use Status: Never used Tobacco Smoked in Last 30 Days: No e-Cigarette/Vaping Use: Never Used Patient Interested in Nicotine Replacement: No Patient Given Instructions on How to Stop Smoking: No Second Hand Smoke Exposure: No Use of substances other than those prescribed or required for medical reasons: No Currently Displaying Signs/Symptoms of Drug Intoxication Withdrawal: No Any prior treatment program specific to substance use: No Have you been hit, kicked, punched, or otherwise hurt by someone within the past year? If so, by whom?: No Do you feel safe in your current relationship?: No Current Relationship Is there a partner from a previous relationship who is making you feel unsafe now?: No Are you made to feel afraid or neglected: No Advance Directives: No Advance Directives Information Provided: No Advance Directives on File: No Do you have thoughts of harming others: None Do you have a plan to hurt others: No Plan Recently lost weight without trying: Yes How much weight loss: 2-13 pounds Eating poorly because of decreased appetite: No Nutrition screen score: 3 Nutrition Risks: No Nutritional Risk Patient : No : No Poor oral hygiene: No service: No Current occupational status: disabled Current occupation: [employer]/ rt hand Cognitive needs: No Hearing needs: No Vision needs: No Meds Allergies Allergy/AdvReac Type Severity Reaction Status Date / Time Penicillins [PENICILLINS] Allergy Severe RASH Verified 03/04/23 09:15 penicillin V Allergy Unknown rash Verified 03/04/23 09:15 naproxen AdvReac Intermediate Dizziness Verified 03/04/23 09:15 naproxen AdvReac Intermediate Weakness Uncoded 10/25/22 08:50 Active Medications: Current Medications Dextrose (Dextrose 50 % 25 Gm/50 Ml Syringe) 25 gm IVPUSH Q15M PRN; Protocol PRN Reason: per Hypoglycemia Standing Ord. Enoxaparin Sodium (Enoxaparin Sodium 40 Mg/0.4 Ml Syringe) 40 mg SUBCUT Q24H [facility] Last Admin: 04/12/23 20:19 Dose: 40 mg Glucose (Glucose Gel 15 Gm Gel..Gram.) 15 gm PO Q15M PRN; Protocol PRN Reason: per Hypoglycemia Standing Ord. Hydromorphone HCl (Hydromorphone Hcl 0.5 Mg/0.5 Ml Syringe) 0.5 mg IVPUSH Q3H PRN; Protocol PRN Reason: Pain, Severe (Pain Scale 7-10) Dextrose/Lactated Ringer's (D5lr) 1,000 mls @ 125 mls/hr IVCONT .Q8H [facility] Last Admin: 04/13/23 04:29 Dose: 125 mls/hr Cefepime HCl 1 gm/ Sodium (Chloride) 50 mls @ 100 mls/hr IV Q12H [facility] Last Infusion: 04/13/23 08:29 Dose: Infused Insulin Human Lispro (Insulin Lispro 100 Unit/Ml 3 Ml Vial) 0 unit SUBCUT QIDACHS [facility]; Protocol Ondansetron HCl (Ondansetron Hcl 4 Mg/2 Ml Vial) 4 mg IVPUSH QID PRN PRN Reason: Nausea Sodium Chloride (0.9 % Sodium Chloride Flush 3 Ml Syringe) 3 ml IVFLUSH QSHIFT [facility] Last Admin: 04/13/23 07:49 Dose: Not Given Zolpidem Tartrate (Zolpidem Tartrate 5 Mg Tablet) 5 mg PO BEDTIME PRN PRN Reason: Insomnia Home Medications Medication Instructions Recorded Confirmed Last Taken Type acetaminophen 650 mg 650 mg PO Q12H PRN Pain 04/12/23 04/12/23 Unknown History tablet,extended release (Tylenol Arthritis Pain) cyclobenzaprine 5 mg tablet 5 mg PO BEDTIME PRN muscle spasms 04/12/23 04/12/23 Unknown History dulaglutide 1.5 mg/0.5 mL 1.5 mg subcut FR 04/12/23 04/12/23 04/05/23 History subcutaneous pen injector (Trulicity) fluticasone propionate 50 1 spray intranasal DAILY PRN 04/12/23 04/12/23 Unknown History mcg/actuation nasal Congestion spray,suspension metformin 500 mg tablet 500 mg PO DAILY 04/12/23 04/12/23 04/11/23 History naproxen 500 mg tablet 500 mg PO BID PRN pain 04/12/23 04/12/23 Unknown History sumatriptan succinate 25 mg tablet 25 mg PO DAILY MRX1 04/12/23 04/12/23 Unknown History triamcinolone acetonide 0.1 % 1 appl topical DAILY PRN Rash 04/12/23 04/12/23 Unknown History topical cream Physical Exam 2 Vital Signs and Narrative: Vital Signs: Last Vital Signs Temp 98 F 04/13/23 07:04 Pulse 65 04/13/23 07:04 Resp 16 04/13/23 07:04 BP 117/70 04/13/23 07:04 Pulse Ox 98 04/13/23 07:04 O2 Del Method Room Air 04/13/23 07:04 BMI result Body Mass Index 30.0 General: AO X 3, no acute distress Resp: CTA bilateral CVS: S1,S2,RRR GI:soft, nd,no distention,bs present. Skin: no change,trace edema neuro: aox3 ,non focal Results Labs 04/13/23 06:35 04/12/23 19:22 Labs: Laboratory Results - last 24 hr 04/12/23 04/12/23 04/12/23 13:24 13:28 16:10 MCV 89.7 MCH 29.5 MCHC 32.9 RDW 13.6 Plt Count 274 D MPV 9.7 Immature Gran % (Auto) 0.5 H Neut % (Auto) 81.5 H Lymph % (Auto) 13.0 L [place] % (Auto) 4.6 Eos % (Auto) 0.2 Baso % (Auto) 0.2 Lymph # (Auto) 2.3 [place] # (Auto) 0.8 Eos # (Auto) 0.0 Baso # (Auto) 0.0 Abs Immat Gran (auto) 0.08 H Absolute Neuts (auto) 14.1 H Absolute Nucleated RBC 0.000 Nucleated RBC % (auto) 0.0 Hold Purple Top Anion Gap 11 L Estim Creat Clear Calc 61.6 Estimated GFR > 60 POC Glucose 155 H 146 H Random Glucose 166 H Lactic Acid Calcium 9.2 D Magnesium 1.3 L* Total Bilirubin 0.3 AST 23 ALT 11 Alkaline Phosphatase 72 Total Protein 7.4 Albumin 4.0 Lipase 22 Urine Color Dark Yellow Urine Appearance Clear Urine pH 5.0 Ur Specific [place] 1.025 Urine Protein Trace Urine Glucose (UA) Negative Urine Ketones Trace Urine Blood Negative Urine Nitrite Negative Ur Leukocyte Esterase Trace H Urine RBC 0-2 Urine WBC 0-5 Ur Squamous Epith Cells 6-10 Urine Bacteria None Seen Hyaline Casts 0-2 04/12/23 04/12/23 04/13/23 19:22 21:23 06:35 MCV 89.2 MCH 29.8 MCHC 33.4 RDW 13.8 Plt Count 213 MPV 10.2 Immature Gran % (Auto) 0.3 Neut % (Auto) 78.6 H Lymph % (Auto) 12.3 L [place] % (Auto) 6.9 Eos % (Auto) 1.7 Baso % (Auto) 0.2 Lymph # (Auto) 1.5 [place] # (Auto) 0.9 Eos # (Auto) 0.2 Baso # (Auto) 0.0 Abs Immat Gran (auto) 0.04 H Absolute Neuts (auto) 9.7 H Absolute Nucleated RBC 0.000 Nucleated RBC % (auto) 0.0 Hold Purple Top SEE NOTE Anion Gap 12 Estim Creat Clear Calc 64.6 Estimated GFR > 60 POC Glucose 130 H Random Glucose 142 H Lactic Acid 1.1 Calcium 9.0 Magnesium 1.6 Total Bilirubin AST ALT Alkaline Phosphatase Total Protein Albumin Lipase Urine Color Urine Appearance Urine pH Ur Specific [place] Urine Protein Urine Glucose (UA) Urine Ketones Urine Blood Urine Nitrite Ur Leukocyte Esterase Urine RBC Urine WBC Ur Squamous Epith Cells Urine Bacteria Hyaline Casts 04/13/23 07:08 MCV MCH MCHC RDW Plt Count MPV Immature Gran % (Auto) Neut % (Auto) Lymph % (Auto) [place] % (Auto) Eos % (Auto) Baso % (Auto) Lymph # (Auto) [place] # (Auto) Eos # (Auto) Baso # (Auto) Abs Immat Gran (auto) Absolute Neuts (auto) Absolute Nucleated RBC Nucleated RBC % (auto) Hold Purple Top Anion Gap Estim Creat Clear Calc Estimated GFR POC Glucose 183 H Random Glucose Lactic Acid Calcium Magnesium Total Bilirubin AST ALT Alkaline Phosphatase Total Protein Albumin Lipase Urine Color Urine Appearance Urine pH Ur Specific [place] Urine Protein Urine Glucose (UA) Urine Ketones Urine Blood Urine Nitrite Ur Leukocyte Esterase Urine RBC Urine WBC Ur Squamous Epith Cells Urine Bacteria Hyaline Casts Imaging Radiologist's Impressions: Impressions Abdomen Ultrasound 04/12/23 13:00 IMPRESSION: 1. Mild echogenic pancreas but no focal lesion seen. 2. Mild right renal pelvic fullness. 3. Visualized liver, gallbladder, CBD and the right kidney is unremarkable. Abdomen/Pelvis CT 04/12/23 17:17 IMPRESSION: 1. Multiple thick-walled fluid-filled loops of small bowel measuring within upper limits of normal measuring up to 3 cm with abnormal intramesenteric loop edema and some areas of angulation of the small bowel suggesting the possibility of underlying adhesions. No beronica transition point although loops become decompressed in the central pelvis with multiple clustered decompressed loops of small bowel limiting assessment. Constellation of findings raises the suspicion for developing small bowel obstruction. There is fecalization of bowel contents. No pneumatosis or portal venous gas. 2. Question of subtle nodularity of the hepatic contour recommend correlation with risk factors for cirrhosis. Liver is enlarged measuring 18.4 cm in span. 3. Small volume ascites. Assessment and Plan (1) Abdominal pain: Qualifiers: Abdominal location: right upper quadrant Qualified Code(s): R10.11 - Right upper quadrant pain Status: Acute (2) Leucocytosis: Status: Acute (3) Hypomagnesemia: Status: Acute Plan 63 y/o F with pmhx dm ,htn ,overweight came c/o abd pain Ruq : admitted for psbo Psbo: improving continue hydration ,clear liquids surgery following Mild leucocytosis: seems recative trending down spontaneously patient asymptomatic no fever blood cultures sent by ed -pending ua ,abd ct-lung base fine continue to moniter. hypomagnesemia :repleted iv will check magnesium levels ct abd:showed ?liver enlarged ,even though on abd sono-liver seems fine,lfts also normal. further workup outpatient ,consider outpatient Gi eval. dm: controlled fs with coverage adjusted ,no coverage below 200 mg/dl. htn: continue home meds. overweight: encourage to lose weight and cut down calories. hx of migrane : continue home meds. dvt prophylax:lovenox above management d/w patient and primary team in detail . time spent 70 min .will follow along,thanks for letting us participate in patient care.
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
[2023-04-15 07:42] LABS: Glucose, Whole Blood 195 mg/dL (60-115)
== END 2023-04-13 15:11 | disposition home or self-care (01) | DRG 247 ==
LOC: HO.ED 19:02 → HO.EDOVER 19:07 → HO.S3 19:52
PROVIDERS: Internal Medicine; Nurse Practitioner Family; Admitting Provider Surgery; Emergency Provider Student in an Organized Health Care Education/Training Program; PCP Physician Assistant; Visit Provider Surgery
DX: K56.600 Partial intestinal obstruction, unspecified as to cause (principal); E11.9 Type 2 diabetes mellitus without complications; E83.42 Hypomagnesemia; I10 Essential (primary) hypertension; E66.3 Overweight; Z68.30 Body mass index [BMI] 30.0-30.9, adult; Z79.84 Long term (current) use of oral hypoglycemic drugs; Z79.85 Long-term (current) use of injectable non-insulin antidiabetic drugs; Z79.899 Other long term (current) drug therapy
CPT/HCPCS: 36415; 74177; 76705; 80048; 80053; 81001; 82947; 83605; 83690; 83735; 85025; 87040; 93005; 99285; J0692; J1650; J3475; Q9967

== ENCOUNTER → 2023-04-12 14:01 | Outpatient (BNV) | payer OTHER, SELFPAY | PROVIDERS: PCP Physician Assistant; Visit Provider Internal Medicine Cardiovascular Disease | DX: R79.9 Abnormal finding of blood chemistry, unspecified (principal) | CPT/HCPCS: 93010 ==

== ENCOUNTER → 2023-04-12 18:19 | Outpatient (BNV) | payer OTHER, SELFPAY | PROVIDERS: Admitting Provider Surgery; Emergency Provider Student in an Organized Health Care Education/Training Program; PCP Physician Assistant; Visit Provider Internal Medicine | DX: R10.11 Right upper quadrant pain (principal); D72.829 Elevated white blood cell count, unspecified; E83.42 Hypomagnesemia | CPT/HCPCS: 99222 ==

== ENCOUNTER → 2023-04-12 18:19 | Outpatient (BNV) | payer OTHER, SELFPAY | PROVIDERS: Admitting Provider Surgery; Emergency Provider Student in an Organized Health Care Education/Training Program; PCP Physician Assistant; Visit Provider Surgery | DX: R10.11 Right upper quadrant pain (principal); K56.609 Unspecified intestinal obstruction, unspecified as to partial versus complete obstruction | CPT/HCPCS: 99222 ==

== ENCOUNTER 2023-04-23 13:13 | Outpatient (AMB) | payer OTHER, SELFPAY ==
--- NOTE | 2023-04-23 13:28 | A.OFFVIS_ITS ---
Intake Vital Signs 04/23/23 13:47 Height 5 ft 1 in Weight 157 lb BMI 29.7 BP 130/72 Blood Pressure Location Lt brachial Position Sitting Pulse 91 Intake Visit Reasons: 1 wk small bowel obstruction-in pt Intake Note: Patient is seen in office for ER follow up visit, following small bowel obstruction. Pt c/o: was given a diet and since has no pain, is unsure of what she can and cannot eat, denies nausea, vomit, diarrhea, constipation CT/In-patient:04/12/23 Java Tech Lead Required: Yes Java Tech Lead Language: Clay Miller Name: Monet AWAD Information Interpreted: non-clinical & clinical Help Desk Operator: Help Desk Operator Present Accompanied by: Self / Same As Patient Allergies Penicillins [PENICILLINS] Allergy (Severe, Verified 04/23/23 13:46) RASH penicillin V Allergy (Unknown, Verified 04/23/23 13:46) rash naproxen Adverse Reaction (Intermediate, Verified 04/23/23 13:46) Dizziness naproxen Adverse Reaction (Intermediate, Uncoded 04/23/23 13:46) Weakness Medication List - Last Reconciled 04/23/23 by Bam Hernandez MD acetaminophen ER (Tylenol Arthritis Pain) 650 mg PO Q12H PRN atorvastatin 20 mg PO DAILY 90 days blood pressure test kit-medium As directed blood sugar diagnostic (FreeStyle Lite Strips) TEST BLOOD SUGAR THREE TIMES DAILY blood-glucose meter (FreeStyle Lite Meter kit) As directed cholecalciferol (vitamin D3) 50 mcg PO DAILY 90 days cyclobenzaprine 5 mg PO BEDTIME PRN dulaglutide (Trulicity) 1.5 mg subcut FR fluticasone propionate 50 mcg/actuation 1 spray intranasal DAILY PRN lisinopril 20 mg PO DAILY metformin 500 mg PO DAILY naproxen 500 mg PO BID PRN sumatriptan succinate 25 mg PO DAILY MRX1 triamcinolone acetonide 0.1% 1 appl topical DAILY PRN HPI HPI Comments History of Present Illness Details 63-year-old female patient recently admi tted on 04/12/2023 for a partial small-bowel obstruction. She immediately had resolution and was subsequently discharged home on 04/13/2023. Was placed on a low residue diet and has done very well since discharge. She denies any abdominal pain, nausea, vomiting, fever or chills. She is moving her bowels 2-3 times daily and denies any constipation or bleeding. [facility] Medical History Pelvic prolapse H/O: osteoarthritis History of depression H/O diabetes mellitus Hx of migraine headaches Hypertension Trigger finger of left hand Osteoporosis Depression Surgical History History of pelvic surgery History of tubal ligation Family History Father Diabetes Mental health disorder Substance use disorder Mother Diabetes Substance use disorder Maternal Grandmother No problems noted. Maternal Grandfather No problems noted. Paternal Grandmother No problems noted. Paternal Grandfather No problems noted. Sister Substance use disorder Brother Substance use disorder Social History Household Members: None Housing: Apartment Do you presently have visiting nurse or other home services: No Alcohol intake: never Patient Tobacco Use Status: Never used Tobacco e-Cigarette/Vaping Use: Never Used Second Hand Smoke Exposure: No service: No Current occupational status: disabled Current occupation: [employer]/ rt hand Cognitive needs: No Hearing needs: No Vision needs: No Review of Systems Const All systems reviewed & are unremarkable except as noted in HPI and below Physical Exam Vital Signs: Last Vital Signs Pulse 91 04/23/23 13:47 BP 130/72 04/23/23 13:47 BMI result Body Mass Index 29.7 Const General: no acute distress and well developed Nutritional Appearance: well nourished Orientation/consciousness: patient oriented x3 Limitations: no limitations HEENT Head: Yes normocephalic and Yes atraumatic Resp Effort & Inspection: normal respiratory effort, no audible wheezes, no cough and no respiratory distress GI Inspection: Yes normal to inspection Palpation (GI): Soft to palpation, nontender and no guarding Skin General skin exam: no rashes or lesions noted Neuro General: patient oriented x3 Extrem General: No edema Assessment & Plan Assessment & Plan (1) SBO (small bowel obstruction): Code(s): K56.609 - Unspecified intestinal obstruction, unspecified as to partial versus complete obstruction Plan 63-year-old female patient status post previous pelvic surgery presenting on 04/12/2023 with a partial small-bowel obstruction by CT. She quickly resolved and now has no further abdominal symptoms. She is eating well and denies any nausea or vomiting. I recommended remaining on a low residue diet. She should follow up as needed. Coding Level of Care Code Est Pt Level 3 (25406) Diagnoses SBO (small bowel obstruction) K56.609
[2023-04-23 13:47] VITALS: BP 130/72; PULSE 91; BMI 29.7
== END 2023-04-23 13:54 | disposition home or self-care (01) ==
PROVIDERS: PCP Physician Assistant; Visit Provider Surgery
DX: K56.609 Unspecified intestinal obstruction, unspecified as to partial versus complete obstruction (principal)
CPT/HCPCS: 99213

== ENCOUNTER → 2023-04-23 13:13 | Outpatient (BNVA) | payer OTHER, SELFPAY | PROVIDERS: PCP Physician Assistant; Visit Provider Surgery | DX: K56.600 Partial intestinal obstruction, unspecified as to cause (principal) | CPT/HCPCS: 99212 ==

== ENCOUNTER 2023-05-21 08:07 | Outpatient (REF) | payer OTHER, SELFPAY ==
[2023-05-21 09:10] LABS: Hematocrit 36.8 % (37.0-47.0); Hemoglobin 12.4 g/dl (12.0-16.0); Mean Corpuscular HGB Conc 33.7 g/dl (31.0-35.0); Mean Corpuscular Hemoglobin 30.5 pg (27.0-33.0); Mean Corpuscular Volume 90.6 fL (80.0-98.0); Mean Platelet Volume 9.9 fL (9.4-12.3); Platelet Count 220 X10*3/uL (160-400); Red Blood Count 4.06 X10*6/uL (4.20-5.50); Red Cell Distribution Width 14.1 % (11.0-16.0); White Blood Count 6.8 X10*3/uL (4.8-10.8)
[2023-05-21 09:36] LABS: Alanine Aminotransferase 11 U/L (0-31); Albumin Level 4.2 g/dL (3.5-5.0); Alkaline Phosphatase 62 U/L (39-117); Anion Gap 13 (12-20); Aspartate Amino Transferase 20 U/L (5-31); Bilirubin Total 0.3 mg/dL (0.0-1.0); Blood Urea Nitrogen 21 mg/dL (9-16); Calcium 10.1 mg/dL (8.4-10.2); Carbon Dioxide 27 mmol/L (22-29); Chloride 108 mmol/L (96-108); Cholesterol 197 mg/dL (<200); Estimated Glomerular Filt Rate 58; Glucose Fasting 121 mg/dL (60-99); HDL Cholesterol 59 mg/dL (>40); LDL Cholesterol Calculated 120 mg/dL (<100); Potassium 5.1 mmol/L (3.3-5.1); Sodium 143 mmol/L (135-145); Total Protein 7.5 g/dL (6.5-8.0); Triglycerides 94 mg/dL (<150)
[2023-05-21 09:42] LABS: Creatinine Urine 141.61 mg/dL
== END 2023-05-21 08:08 | disposition home or self-care (01) ==
LOC: HO.LAB 08:07
PROVIDERS: PCP Physician Assistant; Visit Provider Physician Assistant
DX: E11.9 Type 2 diabetes mellitus without complications (principal); E78.2 Mixed hyperlipidemia; Z79.4 Long term (current) use of insulin
CPT/HCPCS: 36415; 80053; 80061; 82043; 82570; 85027

== ENCOUNTER 2023-06-03 08:17 | Outpatient (AMB) | payer OTHER, SELFPAY ==
[2023-06-03 08:43] VITALS: BP 128/72; PULSE 77; O2SAT 98; BMI 29.7
--- NOTE | 2023-06-03 08:43 | MHC.PC.OV ---
Vital Signs 06/03/23 08:43 Height 5 ft 1 in Weight 157 lb BMI 29.7 BP 128/72 Blood Pressure Location Lt brachial Position Sitting Pulse 77 Pulse Source Pulse Oximeter Pulse Oximetry (%) 98 Oxygen Delivery Method Room Air Intake Visit Reasons: 3mth f/u Intake Note: Patient here for a 3 month follow up [place] Required: No Accompanied by: Self / Same As Patient Allergies Penicillins [PENICILLINS] Allergy (Severe, Verified 06/03/23 08:55) RASH penicillin V Allergy (Unknown, Verified 06/03/23 08:55) rash naproxen Adverse Reaction (Intermediate, Verified 06/03/23 08:55) Dizziness naproxen Adverse Reaction (Intermediate, Uncoded 04/23/23 13:46) Weakness Medication List - Last Reconciled 06/03/23 by Julio House PA-C acetaminophen ER (Tylenol Arthritis Pain) 650 mg PO Q12H PRN atorvastatin 20 mg PO DAILY 90 days blood pressure test kit-medium As directed blood sugar diagnostic (FreeStyle Lite Strips) TEST BLOOD SUGAR THREE TIMES DAILY blood-glucose meter (FreeStyle Lite Meter kit) As directed cholecalciferol (vitamin D3) 50 mcg PO DAILY 90 days cyclobenzaprine 5 mg PO BEDTIME PRN dulaglutide (Trulicity) 1.5 mg subcut FR fluticasone propionate 50 mcg/actuation 1 spray intranasal DAILY PRN lisinopril 20 mg PO DAILY metformin 500 mg PO DAILY naproxen 500 mg PO BID PRN sumatriptan succinate 25 mg PO DAILY MRX1 triamcinolone acetonide 0.1% 1 appl topical DAILY PRN Tobacco use date assessed: 06/03/23 Fall risk assessment: No Falls in past year Last assessed Fall Risk: 06/03/23 Dental Screening Dental Screen Date: 06/03/23 Did you have a dental visit in the last 12 months?: No Did you have a dental problem in the last 6 months where you did not have access to dental care?: No Was dental information given to patient?: Patient has dentist HPI 3mth f/u HPI Details Patient is a 63-year-old female here today for a follow-up visit. ?Patient has a past medical history significant for type 2 diabetes, hypertension hyperlipidemia. Concerns--> her joint pains have gotten much better since reducing statin potency. Still does have right knee pain when doing a lot of physical activity. ?Type 2 diabetes: .? Today's A1c-7.1 from 7.2 .? She continues on Trulicity 1.5 mg weekly and metformin 500 daily. ? She has stopped eating a lot of carbohydrate rich foods. ?Has been seen by her Eye doctor and has no Retinopathy.. PLAN: Will continue diabetic med regime as is and work diligently on diabetic diet . ? .. ? Hypertension:? Blood pressure today in office acceptable.? Continues on lisinopril 20 mg with good effect. Has been off metoprolol. ?? ,? Otherwise denies any chest pain, haley dizziness, headache. .. Hyperlipidemia: Has discontinued her statin therapy due to joint pains. Unfortunately LDL now above 100. Laboratory Tests 07/26/22 07/26/22 10/25/22 08:38 09:16 08:39 RBC Hgb Creatinine Fasting Glucose 143 H Hgb A1c (Clinic) 7.3 H 7.0 H Cholesterol LDL Cholesterol, C alc 80 Urine Microalbumin 22.0 10/25/22 10/25/22 10/25/22 09:16 09:16 09:16 RBC 4.03 L Hgb 12.1 Creatinine Fasting Glucose Hgb A1c (Clinic) Cholesterol LDL Cholesterol, C alc 78 Urine Microalbumin 03/04/23 04/13/23 05/21/23 09:08 06:35 08:32 RBC Hgb 11.1 L 12.4 Creatinine Fasting Glucose Hgb A1c (Clinic) 7.2 H Cholesterol LDL Cholesterol, C alc Urine Microalbumin 05/21/23 05/21/23 05/21/23 08:32 08:32 08:32 RBC Hgb Creatinine 0.97 Fasting Glucose 121 H Hgb A1c (Clinic) Cholesterol 197 LDL Cholesterol, C alc 120 H Urine Microalbumin 05/21/23 08:35 RBC Hgb Creatinine Fasting Glucose Hgb A1c (Clinic) Cholesterol LDL Cholesterol, C alc Urine Microalbumin 17.0 [facility] Medical History Pelvic prolapse H/O: osteoarthritis History of depression H/O diabetes mellitus Hx of migraine headaches Hypertension Trigger finger of left hand Osteoporosis Depression Surgical History History of pelvic surgery History of tubal ligation Family History Father Diabetes Mental health disorder Substance use disorder Mother Diabetes Substance use disorder Maternal Grandmother No problems noted. Maternal Grandfather No problems noted. Paternal Grandmother No problems noted. Paternal Grandfather No problems noted. Sister Substance use disorder Brother Substance use disorder Social History Household Members: None Housing: Apartment Do you presently have visiting nurse or other home services: No Alcohol intake: never Patient Tobacco Use Status: Never used Tobacco e-Cigarette/Vaping Use: Never Used Second Hand Smoke Exposure: No service: No Current occupational status: disabled Current occupation: [employer]/ rt hand Cognitive needs: No Hearing needs: No Vision needs: No Questionnaire PHQ-9 Over the last 2 weeks, how often have you been bothered by any of the following problems? 1. Little interest or pleasure in doing things: not at all 2. Feeling down, depressed, or hopeless: not at all 3. Trouble falling or staying asleep, or sleeping too much: not at all 4. Feeling tired or having little energy: not at all 5. Poor appetite or overeating: not at all 6. Feeling bad about yourself - or that you are a failure or have let yourself or your family down: not at all 7. Trouble concentrating on things, such as reading the newspaper or watching television: not at all 8. Moving or speaking so slowly that other people could have noticed. Or the opposite - being so fidgety or restless that you have been moving around a lot more than usual: not at all 9. Thoughts that you would be better off or of hurting yourself in some way: not at all Total score: 0 Depression Screening Interpretation: Negative Depression Screening Done: Yes 44109 - PHQ-9 Billing: Yes Source: Developed by Drs. Aly Suarez, Soila Wagoner, Carl Altman and colleagues, with an educational srinath from [employer]. Thrive Questionnaire Date Thrive assessed: 06/03/23 I am a: Patient What is your living situation today?: I have a steady place to live Within the past 12 months, did the food you bought not last and you didn't have the money to get more?: Never true Within the past 12 months, did you worry whether your food would run out before you got money to buy more?: Never true Do you have trouble paying for medicines?: No Do you have trouble getting transportation to medical appointments?: No Do you have trouble paying your heating and electricity bill?: No Do you have trouble taking care of your child, family member or friend?: No Do you have trouble with day-to-day activities such as bathing, preparing meals, shopping, managing finances, etc.?: No Are you currently unemployed and looking for a job?: No Are you interested in more education?: No Please select the resources that you would like help with: None Currently or been in a relationship where the following occur: no concerns reported THRIVE Score: 0 AUDIT C Alcohol Use Questionnaire (AUDIT-C) 1. How often do you have a drink containing alcohol?: Never Total Score: 0 GALILEA-7 AMB Questionnaire GALILEA-7 Date GALILEA - 7 assessed: 06/03/23 Feeling nervous, anxious, or on edge: 0 = Not at all Not being able to stop or control worryin = Not at all Worrying too much about different things: 0 = Not at all Trouble relaxin = Not at all Being so restless that it is hard to sit still: 0 = Not at all Becoming easily annoyed or irritable: 0 = Not at all Feeling afraid as if something awful might happen: 0 = Not at all Total GALILEA-7 score (0-4 normal; 5-9 mild; 10-14 moderate; 15-21 severe): 0 Source: Developed by Drs. Aly Suarez, Soila Wagoner, Carl Altman and colleagues, with an educational srinath from [employer]. GALILEA-7 Assessment Billing GALILEA-7 Assessment Tool: GALILEA-7 Assessment 07557 Review of Systems Const Denies headache(s) Eyes Denies loss of vision ENT Denies vertigo, Denies dizziness, Denies headache(s) and Denies sore throat Card Denies chest pain, Denies leg edema and Denies lightheadedness Resp Denies cough, Denies hemoptysis and Denies wheezing GI Denies abdominal pain, Denies melena, Denies constipation, Denies diarrhea and Denies vomiting Denies urinary frequency, Denies dysuria and Denies urinary urgency Musc Denies arthralgias, Denies joint swelling, Denies numbness and Denies tingling Neuro Denies Abnormal speech present, Denies behavioral changes, Denies vertigo, Denies dizziness, Denies headache(s), Denies loss of vision, Denies memory loss, Denies numbness and Denies tingling Psych Denies anxiety, Denies behavioral changes, Denies depression, Denies memory loss and Denies panic attacks Gennaro/Lymph Denies easy bleeding and Denies easy bruising Aller/Immun Denies wheezing Physical exam (Primary Care) Vital Signs: Last Vital Signs Pulse 77 06/03/23 08:43 BP 128/72 06/03/23 08:43 Pulse Ox 98 06/03/23 08:43 Oxygen Delivery Method Room Air 06/03/23 08:43 BMI result Body Mass Index 29.7 Tobacco/Smoking Status: Tobacco use Status Tobacco use date assessed 06/03/23 06/03/23 08:53 Patient Tobacco Use Status Never used Tobacco 06/03/23 08:53 e-Cigarette/Vaping Use Never Used 06/03/23 08:53 PHQ-9: PHQ-9 Score PHQ-9: Total score 0 06/03/23 08:53 Depression Screening Interpretation: Negative Thrive Assessment: Date of Thrive Assessment Date Thrive assessed 06/03/23 06/03/23 08:53 Currently or been in a relationship where the following occur: no concerns reported Const General: healthy appearing, no acute distress, alert and awake Nutritional Appearance: well nourished Orientation/consciousness: oriented to person, oriented to place and oriented to time [facility] Ears: TM's normal bilaterally General nose exam: Normal nasal mucous membranes and turbinates present Eyes Conjunctivae: conjunctivae normal Sclerae: sclerae normal Pupils: Equal, round and reactive pupils present Neck Neck: Yes no lymphadenopathy and Yes no JVD Thyroid: Thyroid normal Carotids: no bruits Resp Effort & Inspection: normal respiratory effort and not tachypneic Auscultation: no crackles, no rales, no rhonchi and no wheezes Cardio Rate: regular rate Rhythm: regular rhythm Heart sounds: no murmurs and normal S1 and S2 GI Palpation (GI): Soft to palpation, nontender, no hepatomegaly and no splenomegaly Auscultation: normal bowel sounds Skin General skin exam: no rashes or lesions noted and dry skin Neuro General: oriented to person, oriented to place and oriented to time Cranial nerves: Yes Equal, round and reactive pupils present Speech: No Abnormal speech present Gait exam (Neuro): Normal gait present Motor exam (neuro): no tremor noted Extrem Right upper extremity: full ROM Left upper extremity: full ROM Right lower extremity: full ROM; no edema Left lower extremity: full ROM; no edema Psych Mental Status: mental status grossly normal Speech and movement: Normal speech and movement present Affect: normal affect Attitude: cooperative Thought process: Normal thought process present Results AMB Hemoglobin A1c AMB Hemoglobin A1c 7.1 % Last Edit by DELMI Shaw on 06/03/23 08:55 Results Reviewed Results Reviewed: Laboratory Last Values Hgb A1c (Clinic) 7.1 % (4.0-6.0) H 06/03/23 08:42 Assessment and Plan Assessment & Plan (1) HTN (hypertension): Code(s): I10 - Essential (primary) hypertension Qualifiers: Hypertension type: primary hypertension Qualified Code(s): I10 - Essential (primary) hypertension Plan: Patient's blood pressure acceptable today in office. Will continue lisinopril 20 mg with goal blood pressure remain below 140/90. (2) HLD (hyperlipidemia): Code(s): E78.5 - Hyperlipidemia, unspecified Qualifiers: Hyperlipidemia type: mixed hyperlipidemia Qualified Code(s): E78.2 - Mixed hyperlipidemia Plan: Most recent fasting lipid panel showed slight elevation her LDL. We have reduced her statin potency due to myalgias and joint pains which has been helpful. She will continue working on a low cholesterol diet. Will continue statin potency as is. Goal LDL is to be below 100. (3) DMII (diabetes mellitus, type 2): Code(s): E11.9 - Type 2 diabetes mellitus without complications Qualifiers: Diabetes mellitus chcf insulin use: with remote computer terminal operator use Diabetes mellitus complication status: without complication Qualified Code(s): E11.9 - Type 2 diabetes mellitus without complications; Z79.4 - [facility] (current) use of insulin Plan: Patient's type 2 diabetes suboptimally controlled with current anti-hyperglycemic medication. We discussed perhaps increasing metformin to b.i.d. dosing though would like to hold off and work on lifestyle modifications. She will continue on being more physically active and adapting to a diabetic diet. Will continue to follow A1c with goal A1c to be below 7.0 (4) Obese: Code(s): E66.9 - Obesity, unspecified Qualifiers: Obesity type: due to excess calories Obesity classification: adult class 1 (BMI 30 - 34.9) Serious obesity comorbidity presence: with serious comorbidity Body mass index: BMI 30.0-30.9 Qualified Code(s): E66.09 - Other obesity due to excess calories; Z68.30 - Body mass index [BMI]30.0-30.9, adult Plan: Has been able to lose a little bit of weight since last office visit. She reports she is fairly physically active and has been watching her diet. Orders: Orders AMB Hemoglobin A1c Today E11.9 - Type 2 diabetes mellitus without complications Lipid Panel Today E78.2 - Mixed hyperlipidemia Comprehensive [place]. Panel Fast Today E78.2 - Mixed hyperlipidemia Medications: Changed From dulaglutide (Trulicity) 1.5 mg subcut FR E11.9 - Type 2 diabetes mellitus without complications To dulaglutide (Trulicity) 1.5 mg (0.5 mL) subcut FR 2 mL 3RF 4 weeks E11.9 - Type 2 diabetes mellitus without complications From naproxen 500 mg PO BID PRN pain M79.10 - Myalgia, unspecified site To naproxen 500 mg PO BID 180 tabs 1RF pain 90 days M79.10 - Myalgia, unspecified site From sumatriptan succinate take 1 tab at onset of headache; if no relief may repeat 1 tab after at least 2 hrs; max = 4 tabs/24 hr PO 25 mg PO DAILY MRX1 Z86.69 - Personal history of other diseases of the nervous system and sense organs To sumatriptan succinate 25 mg orally; take 1 tab at onset of headache; if no relief may repeat 1 tab after at least 2 hrs; max = 4 tabs/24 hr PO 10 tabs 3RF 30 days Z86.69 - Personal history of other diseases of the nervous system and sense organs From metformin 500 mg PO DAILY 90 tabs 0RF E11.9 - Type 2 diabetes mellitus without complications, Z79.4 - exterminator helper termite (current) use of insulin To metformin 500 mg PO DAILY 90 tabs 1RF 90 days E11.9 - Type 2 diabetes mellitus without complications, Z79.4 - [facility] (current) use of insulin From triamcinolone acetonide 0.1% 1 appl topical DAILY PRN Rash To triamcinolone acetonide 0.1% 1 appl topical DAILY 80 grams 1RF Rash 90 days Refilled atorvastatin 20 mg PO DAILY 90 tabs 1RF 90 days E78.2 - Mixed hyperlipidemia lisinopril 20 mg PO DAILY 90 tabs 1RF I10 - Essential (primary) hypertension cholecalciferol (vitamin D3) 50 mcg PO DAILY 90 tabs 3RF 90 days E11.9 - Type 2 diabetes mellitus without complications, Z79.4 - exterminator helper termite (current) use of insulin Coding Level of Care Code Est Pt Level 4 (44630) Diagnoses Primary hypertension I10 Hypertension type: primary hypertension Mixed hyperlipidemia E78.2 Hyperlipidemia type: mixed hyperlipidemia Type 2 diabetes mellitus without complication, with long-term current use of insulin E11.9; Z79.4 Diabetes mellitus remote computer terminal operator insulin use: with chcf use Diabetes mellitus complication status: without complication Class 1 obesity due to excess calories with serious comorbidity and body mass index (BMI) of 30.0 to 30.9 in adult E66.09; Z68.30 Obesity type: due to excess calories Obesity classification: adult class 1 (BMI 30 - 34.9) Serious obesity comorbidity presence: with serious comorbidity Body mass index: BMI 30.0-30.9 Additional Codes GALILEA-7 Assessment Billing - GALILEA-7 Assessment Tool: GALILEA-7 Assessment 50324 ([id number])
== END 2023-06-03 09:09 | disposition home or self-care (01) ==
PROVIDERS: PCP Physician Assistant; Visit Provider Physician Assistant
DX: I10 Essential (primary) hypertension (principal); E78.2 Mixed hyperlipidemia; E11.9 Type 2 diabetes mellitus without complications; Z79.4 Long term (current) use of insulin; E66.09 Other obesity due to excess calories; Z68.30 Body mass index [BMI] 30.0-30.9, adult
CPT/HCPCS: 83036; 99214

== ENCOUNTER 2023-06-04 10:26 | Outpatient (REF) | payer OTHER, SELFPAY | END 2023-06-04 10:27 | disposition home or self-care (01) | LOC: HO.MAMMO 10:26 | PROVIDERS: PCP Physician Assistant; Visit Provider Physician Assistant | DX: Z12.31 Encounter for screening mammogram for malignant neoplasm of breast (principal) | CPT/HCPCS: 77063; 77067 ==

== ENCOUNTER → 2023-06-04 11:00 | Outpatient (BNV) | payer OTHER, SELFPAY | PROVIDERS: PCP Physician Assistant; Visit Provider Radiology Diagnostic Radiology | DX: Z12.31 Encounter for screening mammogram for malignant neoplasm of breast (principal) | CPT/HCPCS: 77063; 77067 ==

== ENCOUNTER 2023-06-26 07:42 | Outpatient (REF) | payer OTHER, SELFPAY ==
[2023-07-03 03:29] LABS: HPV mRNA E6/E7 rflx Not Detected (Not Detected)
== END 2023-06-26 07:43 | disposition home or self-care (01) ==
LOC: HO.LNP 07:42
PROVIDERS: PCP Physician Assistant; Visit Provider Advanced Practice Midwife
DX: Z01.419 Encounter for gynecological examination (general) (routine) without abnormal findings (principal)
CPT/HCPCS: 87624; 88142; 99396

== ENCOUNTER 2023-06-26 07:42 | Outpatient (AMB) | payer OTHER, SELFPAY ==
--- NOTE | 2023-06-26 07:53 | MHC.OFFVIS ---
Intake Vital Signs 06/26/23 07:59 Height 5 ft 1 in Weight 157 lb BMI 29.7 BP 128/80 Intake Visit Reasons: REGISTERED PHYSICAL THERAPIST annual exam/conf Siebel Administrator Required: No Email Marketing Manager: Email Marketing Manager Present (Kasia) Allergies Penicillins [PENICILLINS] Allergy (Severe, Verified 06/26/23 08:01) RASH penicillin V Allergy (Unknown, Verified 06/26/23 08:01) rash naproxen Adverse Reaction (Intermediate, Verified 06/26/23 08:01) Dizziness naproxen Adverse Reaction (Intermediate, Uncoded 04/23/23 13:46) Weakness HPI HPI Comments History of Present Illness Details She is a 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 She is doing well with no concerns. She reports had a pelvic surgery and repair at [facility] in 2021, and was told not to have intimacy due to the repair. Records not available in surgical notes. Attempting to eat a healthy diet with calcium and vitamin D and stays active with exercise. Currently sexually not active. Denies any vaginal dryness or irritation. STI testing offered; she declined. Last pap smear; 2017. Last mammogram; 05/2023. Colonoscopy is UTD. Denies any family history of breast, ovarian or colon cancer. [facility] Medical History Pelvic prolapse H/O: osteoarthritis History of depression H/O diabetes mellitus Hx of migraine headaches Hypertension Trigger finger of left hand Osteoporosis Depression Surgical History History of pelvic surgery History of tubal ligation Family History Father Diabetes Mental health disorder Substance use disorder Mother Diabetes Substance use disorder Maternal Grandmother No problems noted. Maternal Grandfather No problems noted. Paternal Grandmother No problems noted. Paternal Grandfather No problems noted. Sister Substance use disorder Brother Substance use disorder Social History Household Members: None Housing: Apartment Do you presently have visiting nurse or other home services: No Alcohol intake: never Patient Tobacco Use Status: Never used Tobacco e-Cigarette/Vaping Use: Never Used Second Hand Smoke Exposure: No service: No Current occupational status: disabled Current occupation: SSI/ rt hand Cognitive needs: No Hearing needs: No Vision needs: No Female Reproductive History Menstrual Menopause type: natural Total pregnancies: 3 Full term: 3 Number of Living Children: 3 Date of last pap smear: 09/09/17 (neg pap and hpv) Date of Mammogram: 06/04/23 (Birad 1) Review of Systems Const All systems reviewed & are unremarkable except as noted in HPI and below Reports as per HPI Eyes Reports no additional complaints ENT Reports no additional complaints Card Reports no additional complaints Resp Reports no additional complaints GI Reports as per HPI and Reports no additional complaints Reports as per HPI Musc Reports no additional complaints Skin/Breast Reports as per HPI Neuro Reports no additional complaints Psych Reports no additional complaints Endo Reports no additional complaints Gennaro/Lymph Reports no additional complaints Aller/Immun Reports no additional complaints Physical Exam Vital Signs: Last Vital Signs BP 128/80 06/26/23 07:59 BMI result Body Mass Index 29.7 Const General: cooperative, healthy appearing, no acute distress, well developed and alert Orientation/consciousness: patient oriented x3 HEENT Head: Yes normal to inspection Eyes General: appearance normal, both eyes and all related structures Neck Neck: Yes normal visual inspection Thyroid: Thyroid normal Chest Chest palpation & inspection: normal inspection of the chest and other (no puckering, dimpling, peau de orange, retraction, discharge, masses) Breast/axilla inspection: normal inspection of the breasts Breast/axilla palpation: normal palpation of the breasts Resp Effort & Inspection: normal respiratory effort GI Inspection: Yes normal to inspection Palpation (GI): Soft to palpation Rectal Exam - Female: deferred Other: Vaginal band with several fibers attached anterior right to posterior right, distorted appearance of cervix, located to the right posterior vault, scarred without an os. General: Yes bladder normal to palpation External Female Exam: normal external appearance and normal appearance of the urethra Speculum Exam - Vagina: normal appearance of the vagina, normal palpation, normal vaginal discharge and vagina atrophic Speculum Exam - Cervix: normal appearance of the cervix and normal palpation Bimanual exam- vagina & uterus: normal bimanual exam, normal palpation, uterine size normal, bladder normal to palpation, normal palpation and non-tender Bimanual Exam- Adnexa, other: no masses Skin General skin exam: no rashes or lesions noted Rashes: no rashes Neuro General: patient oriented x3 Cognition (Neuro): normal cognition Extrem General: Yes normal to inspection Psych Attitude: cooperative Thought process: Normal thought process present Assessment & Plan Assessment & Plan (1) Encounter for well woman exam with routine gynecological exam: Code(s): Z01.419 - Encounter for gynecological examination (general) (routine) without abnormal findings Plan Discussed: Current recommendations for pap smears per ASCCP guidelines. Breast awareness, periodic self breast exams and yearly mammogram. Maintain a healthy lifestyle, well balanced diet including Calcium 1,200 mg and Vitamin D 600 IU daily, and routine exercise. Sign for release of records for operative note from [facility]-Dr. Kramer. Pap screening. Contact the office with any postmenopausal bleeding. Patient verbalizes understanding and agrees to the plan of care. She was given opportunity to ask questions and all questions were answered to the best of my ability. RTO in 1 year for annual heavy equipment diesel mechanic exam. This note is constructed using voice recognition software. While every effort has been made to ensure accuracy, rd mechanical engineer errors may have been included. Orders: Orders Pap Smear Today Z01.419 - Encounter for gynecological examination (general) (routine) without abnormal findings Coding Level of Care Code Est Pt Prev Care 40-64y(03043) Diagnoses Encounter for well woman exam with routine gynecological exam Z01.419
[2023-06-26 07:59] VITALS: BP 128/80; BMI 29.7
== END 2023-06-26 08:27 | disposition home or self-care (01) ==
LOC: HO.HWS 07:42
PROVIDERS: PCP Physician Assistant; Visit Provider Advanced Practice Midwife
DX: Z01.419 Encounter for gynecological examination (general) (routine) without abnormal findings (principal)
CPT/HCPCS: 99396

== ENCOUNTER 2023-07-29 08:43 | Outpatient (AMB) | payer OTHER, SELFPAY ==
[2023-07-29 08:45] VITALS: BP 106/70; PULSE 95; O2SAT 98; BMI 28.9
--- NOTE | 2023-07-29 08:45 | MHC.PC.OV ---
Vital Signs 07/29/23 08:45 Height 5 ft 1 in Weight 153 lb BMI 28.9 BP 106/70 Blood Pressure Location Lt brachial Position Sitting Pulse 95 Pulse Source Pulse Oximeter Pulse Oximetry (%) 98 Oxygen Delivery Method Room Air Intake Visit Reasons: Annual Exam Lime Vat Tender Required: No Rod Greaser: Not Required per policy Accompanied by: Self / Same As Patient Allergies Penicillins [PENICILLINS] Allergy (Severe, Verified 07/29/23 09:14) RASH penicillin V Allergy (Unknown, Verified 07/29/23 09:14) rash naproxen Adverse Reaction (Intermediate, Verified 07/29/23 09:14) Dizziness naproxen Adverse Reaction (Intermediate, Uncoded 07/29/23 08:45) Weakness Medication List - Last Reconciled 07/29/23 by Julio House PA-C atorvastatin 20 mg PO DAILY 90 days blood pressure test kit-medium As directed blood sugar diagnostic (FreeStyle Lite Strips) TEST BLOOD SUGAR THREE TIMES DAILY blood-glucose meter (FreeStyle Lite Meter kit) As directed cholecalciferol (vitamin D3) 50 mcg PO DAILY 90 days cyclobenzaprine 5 mg PO BEDTIME PRN fluticasone propionate 50 mcg/actuation 1 spray intranasal DAILY PRN lisinopril 20 mg PO DAILY metformin 500 mg PO DAILY 90 days naproxen 500 mg PO BID 90 days sumatriptan succinate 25 mg orally; take 1 tab at onset of headache; if no relief may repeat 1 tab after at least 2 hrs; max = 4 tabs/24 hr PO 30 days triamcinolone acetonide 0.1% 1 appl topical DAILY 90 days Tobacco use date assessed: 06/03/23 Fall risk assessment: No Falls in past year Last assessed Fall Risk: 07/29/23 Dental Screening Dental Screen Date: 06/03/23 HPI Annual Exam HPI Details Patient is a 63-year-old female here today for an annual physical ?Patient has a past medical history significant for type 2 diabetes, hypertension hyperlipidemia. Concerns--> she reports signs and symptoms consistent with allergic rhinitis. Was using allergy eye drops and nasal sprays which have been helpful. Will supply patient with loratadine 10 mg to use during Allergy season. Most recent A1c is 7.1. Brigitte has not been able to tolerate higher dose of Trulicity 1.5 mg. Will reduce back down 0.75 mg. She has been working extensively on her diet and lifestyle and has been able to lose weight. ?Has been seen by her Eye doctor and has no Retinopathy.. PLAN: Will continue diabetic med regime as is and work diligently on diabetic diet . ? .. ? Hypertension:? Blood pressure today in office acceptable.? Continues on lisinopril 20 mg with good effect. Has been off metoprolol. ?? ,? Otherwise denies any chest pain, haley dizziness, headache. .. Hyperlipidemia: Has discontinued her statin therapy due to joint pains. Unfortunately LDL now above 100. Colonoscopy:? [place] [address] Moreno, tubular adenoma polyp needs repeat 5 years-needs repeat Mammogram:? Done in May 2023, BI-RADS 1 Vaccines:? Up-to-date with tetanus vaccine, pneumonia vaccine, Declines COVID Vaccine, Considering Shingrex vaccine. [facility] Medical History Pelvic prolapse H/O: osteoarthritis History of depression H/O diabetes mellitus Hx of migraine headaches Hypertension Trigger finger of left hand Osteoporosis Depression Surgical History History of pelvic surgery History of tubal ligation Family History Father Diabetes Mental health disorder Substance use disorder Mother Diabetes Substance use disorder Maternal Grandmother No problems noted. Maternal Grandfather No problems noted. Paternal Grandmother No problems noted. Paternal Grandfather No problems noted. Sister Substance use disorder Brother Substance use disorder Social History Household Members: None Housing: Apartment Do you presently have visiting nurse or other home services: No Alcohol intake: never Patient Tobacco Use Status: Never used Tobacco e-Cigarette/Vaping Use: Never Used Second Hand Smoke Exposure: No service: No Current occupational status: disabled Current occupation: [employer]/ rt hand Cognitive needs: No Hearing needs: No Vision needs: No Questionnaire Thrive Questionnaire Date Thrive assessed: 06/03/23 GALILEA-7 AMB Questionnaire GALILEA-7 Date GALILEA - 7 assessed: 06/03/23 Source: Developed by Drs. Aly Suarez, Soila Wagoner, Carl Altman and colleagues, with an educational srinath from [employer]. Review of Systems Const Denies body aches, Denies chills, Denies excessive sweating, Denies fatigue, Denies fever(s) and Denies headache(s) Eyes Denies blurry vision ENT Denies dysphagia, Denies vertigo, Denies dizziness, Denies headache(s), Denies hearing loss and Denies tinnitus Card Denies chest pain, Denies chest pain with activity, Denies syncope, Denies irregular heart rhythm and Denies dyspnea Resp Denies chest congestion, Denies cough, Denies hemoptysis, Denies dyspnea and Denies wheezing GI Denies abdominal pain, Denies melena, Denies hematochezia, Denies coffee ground emesis, Denies dysphagia, Denies diarrhea, Denies nausea and Denies vomiting Denies urinary frequency, Denies dysuria, Denies urinary hesitancy and Denies urinary urgency Musc Denies arthralgias, Denies limited range of motion, Denies muscle cramps and Denies muscle weakness Skin/Breast Denies rash and Denies skin ulcer Neuro Denies Abnormal speech present, Denies confusion, Denies vertigo, Denies dizziness, Denies syncope, Denies headache(s), Denies memory loss and Denies seizure-like activity Psych Denies anxiety, Denies confusion, Denies depression, Denies memory loss, Denies panic attacks and Denies paranoia Endo Denies excessive sweating, Denies fatigue, Denies flushing, Denies polydipsia and Denies polyuria Aller/Immun Denies wheezing Physical exam (Primary Care) Vital Signs: Last Vital Signs Pulse 95 07/29/23 08:45 BP 106/70 07/29/23 08:45 Pulse Ox 98 07/29/23 08:45 Oxygen Delivery Method Room Air 07/29/23 08:45 BMI result Body Mass Index 28.9 Tobacco/Smoking Status: Tobacco use Status Tobacco use date assessed 06/03/23 07/29/23 08:47 Patient Tobacco Use Status Never used Tobacco 07/29/23 08:47 e-Cigarette/Vaping Use Never Used 07/29/23 08:47 Thrive Assessment: Date of Thrive Assessment Date Thrive assessed 06/03/23 07/29/23 08:47 Const General: cooperative, comfortable, no acute distress, alert and awake; No confusion Orientation/consciousness: oriented to person, oriented to place, patient oriented x3 and No confusion HENMT Head: Yes normocephalic Ears: external ears normal and TM's normal bilaterally Face and sinus: No sinus tenderness Mouth: Normal oral and palatal mucosa present and tongue normal Teeth and gingiva: dentition normal and gingiva normal Throat: Yes posterior oropharynx normal, Yes tonsils normal and Yes uvula midline Eyes Conjunctivae: conjunctivae normal Sclerae: sclerae normal Pupils: Equal, round and reactive pupils present EOM: EOMs intact bilaterally Direct Ophthalmoscopy: No no photophobia Neck Neck: Yes no lymphadenopathy, No tender and Yes no JVD Thyroid: Thyroid normal Carotids: no bruits Chest Chest palpation & inspection: no tenderness Resp Effort & Inspection: normal respiratory effort, no audible wheezes, not labored and no stridor Auscultation: no crackles, no rales, no rhonchi and no wheezes Cardio Jugular venous distension: no JVD Rate: regular rate, not bradycardic and not tachycardic Rhythm: regular rhythm Bruits: no carotid bruits Peripheral pulses: Peripheral pulses 2+ throughout GI Inspection: Yes normal to inspection, No abdominal wall ecchymosis and No visible herniation Palpation (GI): Soft to palpation, nontender, no guarding, not rigid and No hepatosplenomegaly present Auscultation: normoactive bowel sounds General: Yes no CVA tenderness Back/Spine/Pelvis Back: no CVA tenderness and No back tenderness Cervical Spine: cervical ROM normal Thoracic/Lumbar Spine: thoracic and lumbar spine normal to inspection, straight leg raise negative bilaterally, No thoraco-lumbar ROM limited and No lumbar spinal tenderness Skin Lesions: no lesions Rashes: no rashes Wounds: no wounds Neuro General: oriented to person, oriented to place, patient oriented x3, CN's II-XI intact bilaterally and No confusion Cranial nerves: Yes Equal, round and reactive pupils present and Yes Normal accommodation reflex present Cognition (Neuro): normal cognition Speech: No Abnormal speech present Gait exam (Neuro): Normal gait present Motor exam (neuro): 5/5 motor strength present throughout Extrem Right upper extremity: full ROM; no cyanosis Left upper extremity: full ROM; no cyanosis Right lower extremity: no edema Left lower extremity: no edema Psych Appearance: grossly normal Mental Status: mental status grossly normal Affect: normal affect Attitude: cooperative Thought process: Normal thought process present Assessment and Plan Assessment & Plan (1) Annual physical exam: Code(s): Z00.00 - Encounter for general adult medical examination without abnormal findings (2) HTN (hypertension): Code(s): I10 - Essential (primary) hypertension Qualifiers: Hypertension type: primary hypertension Qualified Code(s): I10 - Essential (primary) hypertension Plan: Patient's blood pressure acceptable today in office. Will continue lisinopril 20 mg with goal blood pressure remain below 140/90. (3) HLD (hyperlipidemia): Code(s): E78.5 - Hyperlipidemia, unspecified Qualifiers: Hyperlipidemia type: mixed hyperlipidemia Qualified Code(s): E78.2 - Mixed hyperlipidemia Plan: Most recent fasting lipid panel showed slight elevation her LDL. We have reduced her statin potency due to myalgias and joint pains which has been helpful. She will continue working on a low cholesterol diet. Will continue statin potency as is. Goal LDL is to be below 100. (4) DMII (diabetes mellitus, type 2): Code(s): E11.9 - Type 2 diabetes mellitus without complications Qualifiers: Diabetes mellitus superintendent container terminal insulin use: with care home use Diabetes mellitus complication status: without complication Qualified Code(s): E11.9 - Type 2 diabetes mellitus without complications; Z79.4 - [facility] (current) use of insulin Plan: Patient's type 2 diabetes suboptimally controlled with current anti-hyperglycemic medication. Patient was not able to tolerate Trulicity 1.5 mg, will reduce her dose down to 0.75 mg. She has been working diligently on lifestyle modifications and has lost weight since last office visit Will continue to follow A1c with goal A1c to be below 7.0 (5) Tubular adenoma of colon: Code(s): D12.6 - Benign neoplasm of colon, unspecified Plan: Patient does have a history of tubular adenoma polyp. Needed repeat colonoscopy in 2022. Will refer back to GI for repeat screening colonoscopy. (6) Allergic rhinitis: Code(s): J30.9 - Allergic rhinitis, unspecified Qualifiers: Allergic rhinitis trigger: pollen Allergic rhinitis seasonality: seasonal Qualified Code(s): J30.1 - Allergic rhinitis due to pollen Plan: Does report recently having red itchy eyes and nasal congestion. Will supply patient with antihistamine Orders: Orders Hemoglobin A1c Today E11.9 - Type 2 diabetes mellitus without complications, Z79.4 - [facility] (current) use of insulin Referrals Gastroenterology Referral D12.6 - Benign neoplasm of colon, unspecified Medications: New dulaglutide (Trulicity) 0.75 mg (0.5 mL) subcut QWEEK 4 weeks 2 mL 3RF E11.9 - Type 2 diabetes mellitus without complications, Z79.4 - dedicated intermodal truck driver (current) use of insulin loratadine 10 mg PO DAILY 90 days 90 tabs 0RF J30.1 - Allergic rhinitis due to pollen Patient Instructions: Goal: A1c below 7.0 Barriers: Adherence to medication, healthy eating habits Coding Level of Care Code Est Pt Prev Care 40-64y(76106) Diagnoses Annual physical exam Z00.00 Primary hypertension I10 Hypertension type: primary hypertension Mixed hyperlipidemia E78.2 Hyperlipidemia type: mixed hyperlipidemia Type 2 diabetes mellitus without complication, with long-term current use of insulin E11.9; Z79.4 Diabetes mellitus care home insulin use: with superintendent container terminal use Diabetes mellitus complication status: without complication Tubular adenoma of colon D12.6 Seasonal allergic rhinitis due to pollen J30.1 Allergic rhinitis trigger: pollen Allergic rhinitis seasonality: seasonal
== END 2023-07-29 09:29 | disposition home or self-care (01) ==
PROVIDERS: Visit Provider Physician Assistant
DX: Z00.00 Encounter for general adult medical examination without abnormal findings (principal); I10 Essential (primary) hypertension; E11.9 Type 2 diabetes mellitus without complications; Z79.4 Long term (current) use of insulin; D12.6 Benign neoplasm of colon, unspecified; J30.1 Allergic rhinitis due to pollen
CPT/HCPCS: 99396

== ENCOUNTER 2023-10-04 06:58 | Outpatient (REF) | payer OTHER, SELFPAY ==
[2023-10-04 07:44] LABS: Estimated Average Glucose 151 mg/dL; Hemoglobin A1c % 6.9 % (<6.0)
[2023-10-04 07:59] LABS: Alanine Aminotransferase 13 U/L (0-31); Albumin Level 4.4 g/dL (3.5-5.0); Alkaline Phosphatase 61 U/L (39-117); Anion Gap 16 (12-20); Aspartate Amino Transferase 23 U/L (5-31); Bilirubin Total 0.4 mg/dL (0.0-1.0); Blood Urea Nitrogen 28 mg/dL (9-16); Carbon Dioxide 24 mmol/L (22-29); Chloride 106 mmol/L (96-108); Cholesterol 196 mg/dL (<200); Estimated Glomerular Filt Rate 44; Glucose Fasting 134 mg/dL (60-99); HDL Cholesterol 64 mg/dL (>40); LDL Cholesterol Calculated 111 mg/dL (<100); Potassium 4.6 mmol/L (3.3-5.1); Sodium 141 mmol/L (135-145); Total Protein 7.7 g/dL (6.5-8.0); Triglycerides 106 mg/dL (<150)
== END 2023-10-04 06:59 | disposition home or self-care (01) ==
LOC: HO.LAB 06:58
PROVIDERS: PCP Physician Assistant; Visit Provider Physician Assistant
DX: E78.2 Mixed hyperlipidemia (principal); E11.9 Type 2 diabetes mellitus without complications; Z79.4 Long term (current) use of insulin
CPT/HCPCS: 36415; 80053; 80061; 83036

== ENCOUNTER 2023-10-14 08:18 | Outpatient (AMB) | payer OTHER, SELFPAY ==
[2023-10-14 08:29] VITALS: BP 128/78; PULSE 75; O2SAT 97; BMI 29.3
--- NOTE | 2023-10-14 08:29 | MHC.PC.OV ---
Vital Signs 10/14/23 08:29 Height 5 ft 1 in Weight 155 lb BMI 29.3 BP 128/78 Blood Pressure Location Lt brachial Position Sitting Pulse 75 Pulse Source Pulse Oximeter Pulse Oximetry (%) 97 Oxygen Delivery Method Room Air Intake Visit Reasons: Follow-up diabetes Allergies Penicillins [PENICILLINS] Allergy (Severe, Verified 10/14/23 08:35) RASH penicillin V Allergy (Unknown, Verified 10/14/23 08:35) rash naproxen Adverse Reaction (Intermediate, Verified 10/14/23 08:35) Dizziness naproxen Adverse Reaction (Intermediate, Uncoded 10/14/23 08:35) Weakness Medication List - Last Reconciled 10/14/23 by Julio House PA-C atorvastatin 20 mg PO DAILY 90 days blood pressure test kit-medium As directed blood sugar diagnostic (FreeStyle Lite Strips) TEST BLOOD SUGAR THREE TIMES DAILY blood-glucose meter (FreeStyle Lite Meter kit) As directed cholecalciferol (vitamin D3) 50 mcg PO DAILY 90 days cyclobenzaprine 5 mg PO BEDTIME 30 days dulaglutide (Trulicity) 0.75 mg (0.5 mL) subcut QWEEK 4 weeks fluticasone propionate 50 mcg/actuation 1 spray intranasal DAILY PRN lancets (TRUEplus Lancets) 1 gauge miscellaneous BID 30 days lisinopril 20 mg PO DAILY loratadine 10 mg PO DAILY 90 days metformin 500 mg PO DAILY 90 days naproxen 500 mg PO BID 90 days sumatriptan succinate 25 mg orally; take 1 tab at onset of headache; if no relief may repeat 1 tab after at least 2 hrs; max = 4 tabs/24 hr PO 30 days triamcinolone acetonide 0.1% 1 appl topical DAILY 90 days Tobacco use date assessed: 06/03/23 Fall risk assessment: No Falls in past year Last assessed Fall Risk: 10/14/23 Dental Screening Dental Screen Date: 06/03/23 HPI Follow-up diabetes HPI Details Patient is a 63-year-old female here today for follow-up visit. ?Patient has a past medical history significant for type 2 diabetes, hypertension hyperlipidemia. Type 2 diabetes: A1c acceptable , patient continues on Trulicity 0.75 weekly and metformin 500 daily. She has been working extensively on her diet and lifestyle and has been able to lose weight. . ? .. ? Hypertension:? Blood pressure today in office acceptable.? Continues on lisinopril 20 mg with good effect. Has been off metoprolol. ?? ,? Otherwise denies any chest pain, haley dizziness, headache. .. Hyperlipidemia: Has previously discontinued her statin therapy due to joint pains. Unfortunately LDL now above 100. She is willing to restart atorvastatin 20 mg daily to better control her lipids. Laboratory Tests 05/21/23 06/03/23 10/04/23 08:32 08:42 07:06 RBC 4.06 L Hgb 12.4 Hct 36.8 L Fasting Glucose 121 H 134 H Hgb A1c (Clinic) 7.1 H Hemoglobin A1c % 6.9 H LDL Cholesterol, C alc 120 H 111 H PFSH Medical History Pelvic prolapse H/O: osteoarthritis History of depression H/O diabetes mellitus Hx of migraine headaches Hypertension Trigger finger of left hand Osteoporosis Depression Surgical History History of pelvic surgery History of tubal ligation Family History Father Diabetes Mental health disorder Substance use disorder Mother Diabetes Substance use disorder Maternal Grandmother No problems noted. Maternal Grandfather No problems noted. Paternal Grandmother No problems noted. Paternal Grandfather No problems noted. Sister Substance use disorder Brother Substance use disorder Social History Household Members: None Housing: Apartment Do you presently have visiting nurse or other home services: No Alcohol intake: never Patient Tobacco Use Status: Never used Tobacco e-Cigarette/Vaping Use: Never Used Second Hand Smoke Exposure: No service: No Current occupational status: disabled Current occupation: [employer]SI/ rt hand Cognitive needs: No Hearing needs: No Vision needs: No Questionnaire PHQ-9 Over the last 2 weeks, how often have you been bothered by any of the following problems? 1. Little interest or pleasure in doing things: not at all 2. Feeling down, depressed, or hopeless: not at all 3. Trouble falling or staying asleep, or sleeping too much: not at all 4. Feeling tired or having little energy: not at all 5. Poor appetite or overeating: not at all 6. Feeling bad about yourself - or that you are a failure or have let yourself or your family down: not at all 7. Trouble concentrating on things, such as reading the newspaper or watching television: not at all 8. Moving or speaking so slowly that other people could have noticed. Or the opposite - being so fidgety or restless that you have been moving around a lot more than usual: not at all 9. Thoughts that you would be better off or of hurting yourself in some way: not at all Total score: 0 Depression Screening Interpretation: Negative Depression Screening Done: Yes 67017 - PHQ-9 Billing: Yes Source: Developed by Drs. Aly Suarez, Soila Wagoner, Carl Altman and colleagues, with an educational srinath from [employer]. Thrive Questionnaire Date Thrive assessed: 06/03/23 AUDIT C Alcohol Use Questionnaire (AUDIT-C) 1. How often do you have a drink containing alcohol?: Never Total Score: 0 GALILEA-7 AMB Questionnaire GALILEA-7 Date GALILEA - 7 assessed: 06/03/23 Source: Developed by Drs. Aly Suarez, Soila Wagoner, Carl Altman and colleagues, with an educational srinath from [employer]. Review of Systems Const Denies headache(s) Eyes Denies loss of vision ENT Denies vertigo, Denies dizziness, Denies headache(s) and Denies sore throat Card Denies chest pain, Denies leg edema and Denies lightheadedness Resp Denies cough, Denies hemoptysis and Denies wheezing GI Denies abdominal pain, Denies melena, Denies constipation, Denies diarrhea and Denies vomiting Denies urinary frequency, Denies dysuria and Denies urinary urgency Musc Denies arthralgias, Denies joint swelling, Denies numbness and Denies tingling Neuro Denies Abnormal speech present, Denies behavioral changes, Denies vertigo, Denies dizziness, Denies headache(s), Denies loss of vision, Denies memory loss, Denies numbness and Denies tingling Psych Denies anxiety, Denies behavioral changes, Denies depression, Denies memory loss and Denies panic attacks Gennaro/Lymph Denies easy bleeding and Denies easy bruising Aller/Immun Denies wheezing Physical exam (Primary Care) Vital Signs: Last Vital Signs Pulse 75 10/14/23 08:29 BP 128/78 10/14/23 08:29 Pulse Ox 97 10/14/23 08:29 Oxygen Delivery Method Room Air 10/14/23 08:29 BMI result Body Mass Index 29.3 Tobacco/Smoking Status: Tobacco use Status Tobacco use date assessed 06/03/23 10/14/23 08:32 Patient Tobacco Use Status Never used Tobacco 10/14/23 08:32 e-Cigarette/Vaping Use Never Used 10/14/23 08:32 PHQ-9: PHQ-9 Score PHQ-9: Total score 0 10/14/23 08:37 Depression Screening Interpretation: Negative Thrive Assessment: Date of Thrive Assessment Date Thrive assessed 06/03/23 10/14/23 08:32 Const General: healthy appearing, no acute distress, alert and awake Nutritional Appearance: well nourished Orientation/consciousness: oriented to person, oriented to place and oriented to time HENMT Ears: TM's normal bilaterally General nose exam: Normal nasal mucous membranes and turbinates present Eyes Conjunctivae: conjunctivae normal Sclerae: sclerae normal Pupils: Equal, round and reactive pupils present Neck Neck: Yes no lymphadenopathy and Yes no JVD Thyroid: Thyroid normal Carotids: no bruits Resp Effort & Inspection: normal respiratory effort and not tachypneic Auscultation: no crackles, no rales, no rhonchi and no wheezes Cardio Rate: regular rate Rhythm: regular rhythm Heart sounds: no murmurs and normal S1 and S2 GI Palpation (GI): Soft to palpation, nontender, no hepatomegaly and no splenomegaly Auscultation: normal bowel sounds Skin General skin exam: no rashes or lesions noted and dry skin Neuro General: oriented to person, oriented to place and oriented to time Cranial nerves: Yes Equal, round and reactive pupils present Speech: No Abnormal speech present Gait exam (Neuro): Normal gait present Motor exam (neuro): no tremor noted Extrem Right upper extremity: full ROM Left upper extremity: full ROM Right lower extremity: full ROM; no edema Left lower extremity: full ROM; no edema Psych Mental Status: mental status grossly normal Speech and movement: Normal speech and movement present Affect: normal affect Attitude: cooperative Thought process: Normal thought process present Assessment and Plan Assessment & Plan (1) HTN (hypertension): Code(s): I10 - Essential (primary) hypertension Qualifiers: Hypertension type: primary hypertension Qualified Code(s): I10 - Essential (primary) hypertension Plan: Patient's blood pressure acceptable today in office. Will continue lisinopril 20 mg with goal blood pressure remain below 140/90. (2) HLD (hyperlipidemia): Code(s): E78.5 - Hyperlipidemia, unspecified Qualifiers: Hyperlipidemia type: mixed hyperlipidemia Qualified Code(s): E78.2 - Mixed hyperlipidemia Plan: Most recent fasting lipid panel showed slight elevation her LDL. Will restart atorvastatin 20 mg daily. She will continue working on a low cholesterol diet. Goal LDL is to be below 100. (3) DMII (diabetes mellitus, type 2): Code(s): E11.9 - Type 2 diabetes mellitus without complications Qualifiers: Diabetes mellitus complication status: without complication Diabetes mellitus [facility] insulin use: with [facility] use Qualified Code(s): E11.9 - Type 2 diabetes mellitus without complications; Z79.4 - long term care administrator (current) use of insulin Plan: Patient's type 2 diabetes is well controlled with most recent A1c is 6.9. Will continue Trulicity 0.75 mg weekly and metformin 500 daily. She has been working diligently on lifestyle modifications and has lost weight since last office visit Will continue to follow A1c with goal A1c to be below 7.0 Orders: Orders Lipid Panel 10/14/23 E78.2 - Mixed hyperlipidemia Complete Blood Count no Diff 10/14/23 E11.9 - Type 2 diabetes mellitus without complications, Z79.4 - long term care administrator (current) use of insulin Comprehensive [place]. Panel Fast 10/14/23 I10 - Essential (primary) hypertension Hemoglobin A1c 10/14/23 E11.9 - Type 2 diabetes mellitus without complications, Z79.4 - long-term (current) use of insulin Medications: Refilled cyclobenzaprine 5 mg PO BEDTIME 30 days 30 tabs 6RF muscle spasms dulaglutide (Trulicity) 0.75 mg (0.5 mL) subcut QWEEK 4 weeks 2 mL 3RF E11.9 - Type 2 diabetes mellitus without complications, Z79.4 - long-term (current) use of insulin metformin 500 mg PO DAILY 90 days 90 tabs 1RF E11.9 - Type 2 diabetes mellitus without complications, Z79.4 - long term care administrator (current) use of insulin naproxen 500 mg PO BID 90 days 180 tabs 1RF pain M79.10 - Myalgia, unspecified site triamcinolone acetonide 0.1% 1 appl topical DAILY 90 days 80 grams 6RF Rash atorvastatin 20 mg PO DAILY 90 days 90 tabs 1RF E78.2 - Mixed hyperlipidemia cholecalciferol (vitamin D3) 50 mcg PO DAILY 90 days 90 tabs 3RF E11.9 - Type 2 diabetes mellitus without complications, Z79.4 - long-term (current) use of insulin lisinopril 20 mg PO DAILY 90 tabs 1RF I10 - Essential (primary) hypertension loratadine 10 mg PO DAILY 90 days 90 tabs 2RF J30.1 - Allergic rhinitis due to pollen sumatriptan succinate 25 mg orally; take 1 tab at onset of headache; if no relief may repeat 1 tab after at least 2 hrs; max = 4 tabs/24 hr PO 30 days 10 tabs 3RF Z86.69 - Personal history of other diseases of the nervous system and sense organs Patient Instructions: Goal: A1c to remain below 7.0, LDL to be below 100 Barriers: Adherence to physical activity and healthy eating habits Coding Level of Care Code Est Pt Level 4 (73646) Diagnoses Primary hypertension I10 Hypertension type: primary hypertension Mixed hyperlipidemia E78.2 Hyperlipidemia type: mixed hyperlipidemia Type 2 diabetes mellitus without complication, with long-term current use of insulin E11.9; Z79.4 Diabetes mellitus complication status: without complication Diabetes mellitus [facility] insulin use: with [facility] use
== END 2023-10-14 08:49 | disposition home or self-care (01) ==
PROVIDERS: PCP Physician Assistant; Visit Provider Physician Assistant
DX: I10 Essential (primary) hypertension (principal); E78.2 Mixed hyperlipidemia; E11.9 Type 2 diabetes mellitus without complications; Z79.4 Long term (current) use of insulin
CPT/HCPCS: 99214

== ENCOUNTER 2024-02-04 10:34 | Outpatient (REF) | payer OTHER, SELFPAY ==
[2024-02-04 12:26] LABS: Hematocrit 37.2 % (37.0-47.0); Hemoglobin 12.7 g/dl (12.0-16.0); Mean Corpuscular HGB Conc 34.1 g/dl (31.0-35.0); Mean Corpuscular Hemoglobin 30.8 pg (27.0-33.0); Mean Corpuscular Volume 90.1 fL (80.0-98.0); Mean Platelet Volume 9.8 fL (9.4-12.3); Platelet Count 217 X10*3/uL (160-400); Red Blood Count 4.13 X10*6/uL (4.20-5.50); Red Cell Distribution Width 13.5 % (11.0-16.0); White Blood Count 7.6 X10*3/uL (4.8-10.8)
[2024-02-04 12:58] LABS: Alanine Aminotransferase 15 U/L (0-31); Albumin Level 4.3 g/dL (3.5-5.0); Alkaline Phosphatase 60 U/L (39-117); Anion Gap 13 (12-20); Aspartate Amino Transferase 30 U/L (5-31); Bilirubin Total 0.5 mg/dL (0.0-1.0); Blood Urea Nitrogen 11 mg/dL (9-16); Calcium 10.3 mg/dL (8.4-10.2); Carbon Dioxide 27 mmol/L (22-29); Chloride 107 mmol/L (96-108); Cholesterol 188 mg/dL (<200); Estimated Glomerular Filt Rate > 60; Glucose Fasting 96 mg/dL (60-99); HDL Cholesterol 66 mg/dL (>40); LDL Cholesterol Calculated 107 mg/dL (<100); Potassium 5.3 mmol/L (3.3-5.1); Sodium 142 mmol/L (135-145); Total Protein 7.6 g/dL (6.5-8.0); Triglycerides 77 mg/dL (<150)
== END 2024-02-04 10:35 | disposition home or self-care (01) ==
LOC: HO.LAB 10:34
PROVIDERS: PCP Physician Assistant; Visit Provider Physician Assistant
DX: Z01.818 Encounter for other preprocedural examination (principal); H25.9 Unspecified age-related cataract; I10 Essential (primary) hypertension; E11.9 Type 2 diabetes mellitus without complications; E78.2 Mixed hyperlipidemia; Z79.4 Long term (current) use of insulin
CPT/HCPCS: 36415; 80053; 80061; 85027; 90471; 99212

== ENCOUNTER 2024-02-04 10:34 | Outpatient (AMB) | payer MEDICARE, MEDICAID, SELFPAY ==
[2024-02-04 11:02] VITALS: BP 150/70; PULSE 62; O2SAT 99; BMI 29.2
--- NOTE | 2024-02-04 11:02 | A.OFFPC_ITS ---
Vital Signs 02/04/24 11:02 Height 5 ft 1 in Weight 154 lb 6 oz BMI 29.2 BP 150/70 H Blood Pressure Location Lt brachial Position Sitting Pulse 62 Pulse Source Pulse Oximeter Pulse Oximetry (%) 99 Oxygen Delivery Method Room Air Intake Visit Reasons: left eye 04/11 et eye 03/09 [facility] Sales Relationship Manager Required: No Accompanied by: Self / Same As Patient Allergies Penicillins [PENICILLINS] Allergy (Severe, Verified 02/04/24 11:26) RASH penicillin V Allergy (Unknown, Verified 02/04/24 11:26) rash naproxen Adverse Reaction (Intermediate, Verified 02/04/24 11:26) Dizziness naproxen Adverse Reaction (Intermediate, Uncoded 02/04/24 11:26) Weakness Medication List - Last Reconciled 02/04/24 by Julio House PA-C atorvastatin 20 mg PO DAILY 90 days blood pressure test kit-medium As directed blood sugar diagnostic (FreeStyle Lite Strips) TEST BLOOD SUGAR THREE TIMES DAILY blood-glucose meter (FreeStyle Lite Meter kit) As directed cholecalciferol (vitamin D3) 50 mcg PO DAILY 90 days cyclobenzaprine 5 mg PO BEDTIME 30 days dulaglutide (Trulicity) 0.75 mg (0.5 mL) subcut QWEEK 4 weeks fluticasone propionate 50 mcg/actuation 1 spray intranasal DAILY PRN lancets (TRUEplus Lancets) 1 gauge miscellaneous BID 30 days lisinopril 20 mg PO DAILY loratadine 10 mg PO DAILY 90 days metformin 500 mg PO DAILY 90 days naproxen 500 mg PO BID 90 days sumatriptan succinate 25 mg orally; take 1 tab at onset of headache; if no relief may repeat 1 tab after at least 2 hrs; max = 4 tabs/24 hr PO 30 days triamcinolone acetonide 0.1% 1 appl topical DAILY 90 days Tobacco use date assessed: 06/03/23 Fall risk assessment: No Falls in past year Last assessed Fall Risk: 02/04/24 Dental Screening Dental Screen Date: 06/03/23 HPI left eye 04/11 [facility] 03/09 [facility] HPI Details Patient is a 64-year-old female here today for preop visit. Patient is due for bilateral cataract removal in the next coming months. ?Patient has a past medical history significant for type 2 diabetes, hypertension hyperlipidemia. Patient has no history of Congestive heart failure, NE or CVA. Patient is not on any anticoagulation or antiplatelet therapy at this time. Type 2 diabetes: A1c acceptable , patient continues on Trulicity 0.75 weekly and metformin 500 daily. She has been working extensively on her diet and lifestyle and has been able to lose weight. . ? .. ? Hypertension:? Blood pressure today in office acceptable.? Continues on lisinopril 20 mg with good effect. Has been off metoprolol. ?? ,? Otherwise denies any chest pain, haley dizziness, headache. .. Hyperlipidemia: Has previously discontinued her statin therapy due to joint pains. Unfortunately LDL now above 100. She is willing to restart atorvastatin 20 mg daily to better control her lipids [facility] Medical History Pelvic prolapse H/O: osteoarthritis History of depression H/O diabetes mellitus Hx of migraine headaches Hypertension Trigger finger of left hand Osteoporosis Depression Surgical History History of pelvic surgery History of tubal ligation Family History Father Diabetes Mental health disorder Substance use disorder Mother Diabetes Substance use disorder Maternal Grandmother No problems noted. Maternal Grandfather No problems noted. Paternal Grandmother No problems noted. Paternal Grandfather No problems noted. Sister Substance use disorder Brother Substance use disorder Social History Household Members: None Housing: Apartment Do you presently have visiting nurse or other home services: No Alcohol intake: never Patient Tobacco Use Status: Never used Tobacco e-Cigarette/Vaping Use: Never Used Second Hand Smoke Exposure: No service: No Current occupational status: disabled Current occupation: [employer]/ rt hand Cognitive needs: No Hearing needs: No Vision needs: No Questionnaire Thrive Questionnaire Date Thrive assessed: 06/03/23 GALILEA-7 AMB Questionnaire GALILEA-7 Date GALILEA - 7 assessed: 06/03/23 Source: Developed by Drs. Aly uSarez, Soila Wagoner, Carl Altman and colleagues, with an educational srinath from [employer]. Review of Systems Const Denies headache(s) Eyes Denies loss of vision ENT Denies vertigo, Denies dizziness, Denies headache(s) and Denies sore throat Card Denies chest pain, Denies leg edema and Denies lightheadedness Resp Denies cough, Denies hemoptysis and Denies wheezing GI Denies abdominal pain, Denies melena, Denies constipation, Denies diarrhea and Denies vomiting Denies urinary frequency, Denies dysuria and Denies urinary urgency Musc Denies arthralgias, Denies joint swelling, Denies numbness and Denies tingling Neuro Denies Abnormal speech present, Denies behavioral changes, Denies vertigo, Denies dizziness, Denies headache(s), Denies loss of vision, Denies memory loss, Denies numbness and Denies tingling Psych Denies anxiety, Denies behavioral changes, Denies depression, Denies memory loss and Denies panic attacks Gennaro/Lymph Denies easy bleeding and Denies easy bruising Aller/Immun Denies wheezing Physical exam (Primary Care) Vital Signs: Last Vital Signs Pulse 62 02/04/24 11:02 BP 150/70 H 02/04/24 11:02 Pulse Ox 99 02/04/24 11:02 Oxygen Delivery Method Room Air 02/04/24 11:02 BMI result Body Mass Index 29.2 Tobacco/Smoking Status: Tobacco use Status Tobacco use date assessed 06/03/23 02/04/24 11:03 Patient Tobacco Use Status Never used Tobacco 02/04/24 11:03 e-Cigarette/Vaping Use Never Used 02/04/24 11:03 Thrive Assessment: Date of Thrive Assessment Date Thrive assessed 06/03/23 02/04/24 11:03 Const General: healthy appearing, no acute distress, alert and awake Nutritional Appearance: well nourished Orientation/consciousness: oriented to person, oriented to place and oriented to time HENMT Ears: TM's normal bilaterally General nose exam: Normal nasal mucous membranes and turbinates present Eyes Conjunctivae: conjunctivae normal Sclerae: sclerae normal Pupils: Equal, round and reactive pupils present Neck Neck: Yes no lymphadenopathy and Yes no JVD Thyroid: Thyroid normal Carotids: no bruits Resp Effort & Inspection: normal respiratory effort and not tachypneic Auscultation: no crackles, no rales, no rhonchi and no wheezes Cardio Rate: regular rate Rhythm: regular rhythm Heart sounds: no murmurs and normal S1 and S2 GI Palpation (GI): Soft to palpation, nontender, no hepatomegaly and no splenomegaly Auscultation: normal bowel sounds Skin General skin exam: no rashes or lesions noted and dry skin Neuro General: oriented to person, oriented to place and oriented to time Cranial nerves: Yes Equal, round and reactive pupils present Speech: No Abnormal speech present Gait exam (Neuro): Normal gait present Motor exam (neuro): no tremor noted Extrem Right upper extremity: full ROM Left upper extremity: full ROM Right lower extremity: full ROM; no edema Left lower extremity: full ROM; no edema Psych Mental Status: mental status grossly normal Speech and movement: Normal speech and movement present Affect: normal affect Attitude: cooperative Thought process: Normal thought process present Office Procedures Flu Questionnaire Does the patient have a severe egg allergy?: No Immunizations Fluarix Triv [id number] (PF) 45 mcg (15 mcg x 3)/0.5 mL IM syringe Performing Provider: Julio House PA-C [facility] [place] [facility] Documented (not given) by: DIANA Russell on 02/04/24 11:11 Reason Not Given: Patient Refused Coding Level of Care Code Est Pt Level 3 (48516) Diagnoses Pre-op evaluation Z01.818 Age-related cataract of both eyes, unspecified age-related cataract type H25.9 Age-related cataract type: unspecified Cataract type: age-related Laterality: bilateral Assessment & Plan Assessment & Plan (1) Pre-op evaluation: Code(s): Z01.818 - Encounter for other preprocedural examination Category: Medical Plan: Patient's most recent labs has been stable. Patient is medically clear for needed cataract removal. (2) Cataract: Code(s): H26.9 - Unspecified cataract Category: Medical Qualifiers: Age-related cataract type: unspecified Cataract type: age-related Laterality: bilateral Qualified Code(s): H25.9 - Unspecified age-related cataract Plan: As above Orders: Orders Influenza [id number] Immunization Today Z23 - Encounter for immunization Medications: New acetaminophen ER (Tylenol Arthritis Pain) 650 mg PO Q12H 60 tabs 3RF 30 days M19.90 - Unspecified osteoarthritis, unspecified site
== END 2024-02-04 11:39 | disposition home or self-care (01) ==
LOC: HO.HMCH 10:35
PROVIDERS: PCP Physician Assistant; Visit Provider Physician Assistant
DX: Z01.818 Encounter for other preprocedural examination (principal); H25.9 Unspecified age-related cataract; Z23 Encounter for immunization

== ENCOUNTER 2024-02-18 07:55 | Outpatient (REF) | payer OTHER, SELFPAY ==
[2024-02-18 09:08] LABS: Potassium 5.3 mmol/L (3.3-5.1)
== END 2024-02-18 07:56 | disposition home or self-care (01) ==
LOC: HO.LAB 07:55
PROVIDERS: PCP Physician Assistant; Visit Provider Physician Assistant
DX: E87.5 Hyperkalemia (principal)
CPT/HCPCS: 36415; 84132

== ENCOUNTER 2024-02-20 07:47 | Outpatient (AMB) | payer OTHER, SELFPAY ==
--- NOTE | 2024-02-20 08:25 | MHC.PC.OV ---
Vital Signs 02/20/24 08:26 Height 5 ft 1 in Weight 154 lb 2 oz BMI 29.1 BP 120/84 Blood Pressure Location Lt brachial Position Sitting Pulse 64 Pulse Source Pulse Oximeter Pulse Oximetry (%) 99 Oxygen Delivery Method Room Air Intake Visit Reasons: f/u DMII/ HLD Intake Note: Patient is here to follow up on DM, HLD. E Commerce Marketing Manager Required: No Traveling Plant Operator: Not Required per policy Accompanied by: Self / Same As Patient Allergies Penicillins [PENICILLINS] Allergy (Severe, Verified 02/20/24 08:39) RASH penicillin V Allergy (Unknown, Verified 02/20/24 08:39) rash naproxen Adverse Reaction (Intermediate, Verified 02/20/24 08:39) Dizziness naproxen Adverse Reaction (Intermediate, Uncoded 02/20/24 08:39) Weakness Medication List - Last Reconciled 02/20/24 by Julio House PA-C acetaminophen ER (Tylenol Arthritis Pain) 650 mg PO Q12H 30 days amlodipine 5 mg PO DAILY atorvastatin 20 mg PO DAILY 90 days blood pressure test kit-medium As directed blood sugar diagnostic (FreeStyle Lite Strips) TEST BLOOD SUGAR THREE TIMES DAILY blood-glucose meter (FreeStyle Lite Meter kit) As directed cholecalciferol (vitamin D3) 50 mcg PO DAILY 90 days cyclobenzaprine 5 mg PO BEDTIME 30 days dulaglutide (Trulicity) 0.75 mg (0.5 mL) subcut QWEEK 4 weeks fluticasone propionate 50 mcg/actuation 1 spray intranasal DAILY PRN lancets (TRUEplus Lancets) 1 gauge miscellaneous BID 30 days lisinopril 20 mg PO DAILY loratadine 10 mg PO DAILY 90 days metformin 500 mg PO DAILY 90 days naproxen 500 mg PO BID 90 days sodium polystyrene sulf-sorbtl 15-20 gram/60 mL 60 mL PO .once per week 4 weeks sumatriptan succinate 25 mg orally; take 1 tab at onset of headache; if no relief may repeat 1 tab after at least 2 hrs; max = 4 tabs/24 hr PO 30 days triamcinolone acetonide 0.1% 1 appl topical DAILY 90 days Tobacco use date assessed: 02/20/24 Fall risk assessment: No Falls in past year Last assessed Fall Risk: 02/20/24 Dental Screening Dental Screen Date: 11/21/24 Did you have a dental visit in the last 12 months?: Yes Did you have a dental problem in the last 6 months where you did not have access to dental care?: No Was dental information given to patient?: Patient has dentist HPI f/u DMII/ HLD HPI Details Patient is a 64-year-old female here today for a follow-up visit.. Patient has a past medical history significant for type 2 diabetes, hypertension hyperlipidemia. Hyperkalemia: Noted slight hyperkalemia most recent labs. Has been started on polystyrene once a week. Lisinopril has been discontinued and alternative amlodipine has been ordered. Blood pressure today in office acceptable. Will rechecking her potassium in near future. She reports she will start the polystyrene tomorrow .. CHRONIC MEDICAL CONDITIONS--> Type 2 diabetes: A1c acceptable , patient continues on Trulicity 0.75 weekly and metformin 500 daily. She has been working extensively on her diet and lifestyle and has been able to lose weight. . ? .. ? Hypertension:? Blood pressure today in office acceptable.? Continues on lisinopril 20 mg with good effect. Has been off metoprolol. ?? ,? Otherwise denies any chest pain, haley dizziness, headache. .. Hyperlipidemia: Has previously discontinued her statin therapy due to joint pains. Unfortunately LDL slightly above 100. She has restarted atorvastatin. Laboratory Tests 06/03/23 10/04/23 02/04/24 08:42 07:06 12:04 RBC 4.13 L Hgb 12.7 Potassium 5.3 H Hgb A1c (Clinic) 7.1 H Hemoglobin A1c % 6.9 H 02/18/24 08:24 RBC Hgb Potassium 5.3 H Hgb A1c (Clinic) Hemoglobin A1c % [facility] Medical History Pelvic prolapse H/O: osteoarthritis History of depression H/O diabetes mellitus Hx of migraine headaches Hypertension Trigger finger of left hand Osteoporosis Depression Surgical History History of pelvic surgery History of tubal ligation Family History Father Diabetes Mental health disorder Substance use disorder Mother Diabetes Substance use disorder Maternal Grandmother No problems noted. Maternal Grandfather No problems noted. Paternal Grandmother No problems noted. Paternal Grandfather No problems noted. Sister Substance use disorder Brother Substance use disorder Social History Household Members: None Housing: Apartment Do you presently have visiting nurse or other home services: No Alcohol intake: never Patient Tobacco Use Status: Never used Tobacco e-Cigarette/Vaping Use: Never Used Second Hand Smoke Exposure: No service: No Current occupational status: disabled Current occupation: [employer]/ rt hand Cognitive needs: No Hearing needs: No Vision needs: No Questionnaire PHQ-9 Over the last 2 weeks, how often have you been bothered by any of the following problems? 1. Little interest or pleasure in doing things: not at all 2. Feeling down, depressed, or hopeless: not at all 3. Trouble falling or staying asleep, or sleeping too much: not at all 4. Feeling tired or having little energy: not at all 5. Poor appetite or overeating: not at all 6. Feeling bad about yourself - or that you are a failure or have let yourself or your family down: not at all 7. Trouble concentrating on things, such as reading the newspaper or watching television: not at all 8. Moving or speaking so slowly that other people could have noticed. Or the opposite - being so fidgety or restless that you have been moving around a lot more than usual: not at all 9. Thoughts that you would be better off or of hurting yourself in some way: not at all Total score: 0 Depression Screening Interpretation: Negative Depression Screening Done: Yes 91096 - PHQ-9 Billing: Yes Source: Developed by Drs. Aly Suarez, Soila Wagoner, Carl Altman and colleagues, with an educational srinath from [employer]. Thrive Questionnaire Date Thrive assessed: 02/20/24 I am a: Patient What is your living situation today?: I have a steady place to live Within the past 12 months, did the food you bought not last and you didn't have the money to get more?: Never true Within the past 12 months, did you worry whether your food would run out before you got money to buy more?: Never true Do you have trouble paying for medicines?: No Do you have trouble getting transportation to medical appointments?: No Do you have trouble paying your heating and electricity bill?: No Do you have trouble taking care of your child, family member or friend?: No Do you have trouble with day-to-day activities such as bathing, preparing meals, shopping, managing finances, etc.?: No Are you currently unemployed and looking for a job?: No Are you interested in more education?: No Please select the resources that you would like help with: None Currently or been in a relationship where the following occur: No concerns reported THRIVE Score: 0 AUDIT C Alcohol Use Questionnaire (AUDIT-C) 1. How often do you have a drink containing alcohol?: Never Total Score: 0 GALILEA-7 AMB Questionnaire GALILEA-7 Date GALILEA - 7 assessed: 02/20/24 Feeling nervous, anxious, or on edge: 0 = Not at all Not being able to stop or control worryin = Not at all Worrying too much about different things: 0 = Not at all Trouble relaxin = Not at all Being so restless that it is hard to sit still: 0 = Not at all Becoming easily annoyed or irritable: 0 = Not at all Feeling afraid as if something awful might happen: 0 = Not at all Total GALILEA-7 score (0-4 normal; 5-9 mild; 10-14 moderate; 15-21 severe): 0 Source: Developed by Drs. Aly Suarez, Soila Wagoner, Carl Altman and colleagues, with an educational srinath from [facility] [employer]. GALILEA-7 Assessment Billing GALILEA-7 Assessment Tool: GALILEA-7 Assessment 27925 Review of Systems Const Denies headache(s) Eyes Denies loss of vision ENT Denies vertigo, Denies dizziness, Denies headache(s) and Denies sore throat Card Denies chest pain, Denies leg edema and Denies lightheadedness Resp Denies cough, Denies hemoptysis and Denies wheezing GI Denies abdominal pain, Denies melena, Denies constipation, Denies diarrhea and Denies vomiting Denies urinary frequency, Denies dysuria and Denies urinary urgency Musc Denies arthralgias, Denies joint swelling, Denies numbness and Denies tingling Neuro Denies Abnormal speech present, Denies behavioral changes, Denies vertigo, Denies dizziness, Denies headache(s), Denies loss of vision, Denies memory loss, Denies numbness and Denies tingling Psych Denies anxiety, Denies behavioral changes, Denies depression, Denies memory loss and Denies panic attacks Gennaro/Lymph Denies easy bleeding and Denies easy bruising Aller/Immun Denies wheezing Physical exam (Primary Care) Vital Signs: Last Vital Signs Pulse 64 02/20/24 08:26 BP 120/84 02/20/24 08:26 Pulse Ox 99 02/20/24 08:26 Oxygen Delivery Method Room Air 02/20/24 08:26 BMI result Body Mass Index 29.1 Tobacco/Smoking Status: Tobacco use Status Tobacco use date assessed 02/20/24 02/20/24 08:27 Patient Tobacco Use Status Never used Tobacco 02/20/24 08:27 e-Cigarette/Vaping Use Never Used 02/20/24 08:27 PHQ-9: PHQ-9 Score PHQ-9: Total score 0 02/20/24 08:38 Depression Screening Interpretation: Negative Thrive Assessment: Date of Thrive Assessment Date Thrive assessed 02/20/24 02/20/24 08:27 Currently or been in a relationship where the following occur: No concerns reported Const General: healthy appearing, no acute distress, alert and awake Nutritional Appearance: well nourished Orientation/consciousness: oriented to person, oriented to place and oriented to time HENMT Ears: TM's normal bilaterally General nose exam: Normal nasal mucous membranes and turbinates present Eyes Conjunctivae: conjunctivae normal Sclerae: sclerae normal Pupils: Equal, round and reactive pupils present Neck Neck: Yes no lymphadenopathy and Yes no JVD Thyroid: Thyroid normal Carotids: no bruits Resp Effort & Inspection: normal respiratory effort and not tachypneic Auscultation: no crackles, no rales, no rhonchi and no wheezes Cardio Rate: regular rate Rhythm: regular rhythm Heart sounds: no murmurs and normal S1 and S2 GI Palpation (GI): Soft to palpation, nontender, no hepatomegaly and no splenomegaly Auscultation: normal bowel sounds Skin General skin exam: no rashes or lesions noted and dry skin Neuro General: oriented to person, oriented to place and oriented to time Cranial nerves: Yes Equal, round and reactive pupils present Speech: No Abnormal speech present Gait exam (Neuro): Normal gait present Motor exam (neuro): no tremor noted Extrem Right upper extremity: full ROM Left upper extremity: full ROM Right lower extremity: full ROM; no edema Left lower extremity: full ROM; no edema Psych Mental Status: mental status grossly normal Speech and movement: Normal speech and movement present Affect: normal affect Attitude: cooperative Thought process: Normal thought process present Results AMB Hemoglobin A1c AMB Hemoglobin A1c 6.9 % Last Edit by DELMI Curtis on 02/20/24 08:38 Results Reviewed Results Reviewed: Laboratory Last Values Hgb A1c (Clinic) 6.9 % (4.0-6.0) H 02/20/24 08:25 Coding Level of Care Code Est Pt Level 4 (27716) Diagnoses Type 2 diabetes mellitus without complication, with long-term current use of insulin E11.9; Z79.4 Diabetes mellitus terminal superintendent insulin use: with terminal superintendent use Diabetes mellitus complication status: without complication Hyperkalemia E87.5 Primary hypertension I10 Hypertension type: primary hypertension Mixed hyperlipidemia E78.2 Hyperlipidemia type: mixed hyperlipidemia Additional Codes PHQ-9 - 69634 - PHQ-9 Billing: Yes ([id number]) GALILEA-7 Assessment Billing - GALILEA-7 Assessment Tool: GALILEA-7 Assessment [id number] ([id number]) Assessment & Plan Assessment & Plan (1) DMII (diabetes mellitus, type 2): Code(s): E11.9 - Type 2 diabetes mellitus without complications Category: Medical Qualifiers: Diabetes mellitus skilled nursing insulin use: with skilled nursing use Diabetes mellitus complication status: without complication Qualified Code(s): E11.9 - Type 2 diabetes mellitus without complications; Z79.4 - long-term (current) use of insulin Plan: Patient's type 2 diabetes well controlled with current diabetic medication. A1c is to remain below 7.0 (2) Hyperkalemia: Code(s): E87.5 - Hyperkalemia Category: Medical Plan: Has been found to have mild hyperkalemia, has discontinue lisinopril and started amlodipine. Blood pressure acceptable. Patient has been prescribed polystyrene she has not taken this yet. Would like to take this once a week for next few weeks. (3) HTN (hypertension): Code(s): I10 - Essential (primary) hypertension Category: Medical Qualifiers: Hypertension type: primary hypertension Qualified Code(s): I10 - Essential (primary) hypertension Plan: Patient's blood pressure acceptable today in office. Will continue current dose of antihypertensive medication with goal blood pressure to remain below 140/90 (4) HLD (hyperlipidemia): Code(s): E78.5 - Hyperlipidemia, unspecified Category: Medical Qualifiers: Hyperlipidemia type: mixed hyperlipidemia Qualified Code(s): E78.2 - Mixed hyperlipidemia Plan: Patient's most recent lipid panel fairly well controlled. LDL remains slightly above goal of 100. She will continue working on lifestyle and dietary modifications. Will continue her current dose of atorvastatin for now. Goal LDL is to be below 100 Orders: Orders AMB Hemoglobin A1c Today E11.9 - Type 2 diabetes mellitus without complications, Z79.4 - long-term (current) use of insulin Microalbumin, Random (w Creat) Today I10 - Essential (primary) hypertension Lipid Panel Today E78.2 - Mixed hyperlipidemia Comprehensive [place]. Panel Fast Today E11.9 - Type 2 diabetes mellitus without complications, Z79.4 - long-term (current) use of insulin Complete Blood Count no Diff Today E11.9 - Type 2 diabetes mellitus without complications, Z79.4 - long-term (current) use of insulin
[2024-02-20 08:26] VITALS: BP 120/84; PULSE 64; O2SAT 99; BMI 29.1
== END 2024-02-20 08:49 | disposition home or self-care (01) ==
PROVIDERS: PCP Physician Assistant; Visit Provider Physician Assistant
DX: E11.9 Type 2 diabetes mellitus without complications (principal); Z79.4 Long term (current) use of insulin; E87.5 Hyperkalemia; I10 Essential (primary) hypertension; E78.2 Mixed hyperlipidemia

== ENCOUNTER → 2024-02-20 07:47 | Outpatient (BNVA) | payer OTHER, SELFPAY | PROVIDERS: PCP Physician Assistant; Visit Provider Physician Assistant | DX: E11.9 Type 2 diabetes mellitus without complications (principal); Z79.4 Long term (current) use of insulin; E87.5 Hyperkalemia; E78.2 Mixed hyperlipidemia; I10 Essential (primary) hypertension | CPT/HCPCS: 83036; 96127; 99212 ==

== ENCOUNTER 2024-03-02 08:13 | Outpatient (REF) | payer OTHER, SELFPAY ==
[2024-03-02 08:49] LABS: Hematocrit 38.3 % (37.0-47.0); Hemoglobin 12.7 g/dl (12.0-16.0); Mean Corpuscular HGB Conc 33.2 g/dl (31.0-35.0); Mean Corpuscular Hemoglobin 30.5 pg (27.0-33.0); Mean Corpuscular Volume 91.8 fL (80.0-98.0); Mean Platelet Volume 9.8 fL (9.4-12.3); Platelet Count 202 X10*3/uL (160-400); Red Blood Count 4.17 X10*6/uL (4.20-5.50); Red Cell Distribution Width 13.2 % (11.0-16.0); White Blood Count 6.6 X10*3/uL (4.8-10.8)
[2024-03-02 09:27] LABS: Alanine Aminotransferase 13 U/L (0-31); Albumin Level 4.3 g/dL (3.5-5.0); Alkaline Phosphatase 55 U/L (39-117); Anion Gap 13 (12-20); Aspartate Amino Transferase 27 U/L (5-31); Bilirubin Total 0.4 mg/dL (0.0-1.0); Blood Urea Nitrogen 24 mg/dL (9-16); Calcium 9.4 mg/dL (8.4-10.2); Carbon Dioxide 25 mmol/L (22-29); Chloride 107 mmol/L (96-108); Cholesterol 194 mg/dL (<200); Estimated Glomerular Filt Rate 57; Glucose Fasting 116 mg/dL (60-99); HDL Cholesterol 66 mg/dL (>40); LDL Cholesterol Calculated 114 mg/dL (<100); Potassium 4.1 mmol/L (3.3-5.1); Sodium 141 mmol/L (135-145); Total Protein 7.5 g/dL (6.5-8.0); Triglycerides 70 mg/dL (<150)
[2024-03-02 11:13] LABS: Creatinine Urine 131.51 mg/dL; Microalbum/Creatinine Ratio Ur 54.7 ug/mg cr (<30)
== END 2024-03-02 08:14 | disposition home or self-care (01) ==
LOC: HO.LAB 08:13
PROVIDERS: PCP Physician Assistant; Visit Provider Physician Assistant
DX: E11.9 Type 2 diabetes mellitus without complications (principal); E78.2 Mixed hyperlipidemia; I10 Essential (primary) hypertension; Z79.4 Long term (current) use of insulin
CPT/HCPCS: 36415; 80053; 80061; 82043; 82570; 85027

== ENCOUNTER 2024-03-24 09:40 | Outpatient (REF) | payer OTHER, SELFPAY ==
[2024-03-24 11:58] LABS: Potassium 5.4 mmol/L (3.3-5.1)
== END 2024-03-24 09:41 | disposition home or self-care (01) ==
LOC: HO.LAB 09:40
PROVIDERS: PCP Physician Assistant; Visit Provider Physician Assistant
DX: E78.5 Hyperlipidemia, unspecified (principal)
CPT/HCPCS: 36415; 84132

== ENCOUNTER 2024-03-31 08:11 | Outpatient (REF) | payer OTHER, SELFPAY ==
[2024-03-31 08:36] LABS: Potassium 4.5 mmol/L (3.3-5.1)
== END 2024-03-31 08:12 | disposition home or self-care (01) ==
LOC: HO.LAB 08:11
PROVIDERS: PCP Physician Assistant; Visit Provider Physician Assistant
DX: E87.5 Hyperkalemia (principal)
CPT/HCPCS: 36415; 84132

== ENCOUNTER 2024-06-11 07:45 | Outpatient (REF) | payer OTHER, SELFPAY | END 2024-06-11 07:46 | disposition home or self-care (01) | LOC: HO.MAMMO 07:45 | PROVIDERS: PCP Physician Assistant; Visit Provider Physician Assistant | DX: Z12.31 Encounter for screening mammogram for malignant neoplasm of breast (principal) | CPT/HCPCS: 77063; 77067 ==

== ENCOUNTER → 2024-06-11 08:00 | Outpatient (BNV) | payer OTHER, SELFPAY | PROVIDERS: PCP Physician Assistant; Visit Provider Internal Medicine | DX: Z12.31 Encounter for screening mammogram for malignant neoplasm of breast (principal) | CPT/HCPCS: 77063; 77067 ==

== ENCOUNTER 2024-08-06 07:38 | Outpatient (AMB) | payer OTHER, SELFPAY ==
[2024-08-06 07:47] VITALS: BP 154/84; PULSE 80; TEMP 36.2; O2SAT 99; BMI 28.1
--- NOTE | 2024-08-06 07:47 | MHC.PC.OV ---
Vital Signs 08/06/24 07:47 Height 5 ft 1 in Weight 148 lb 12.8 oz BMI 28.1 BP 154/84 H Blood Pressure Location Lt brachial Position Sitting Pulse 80 Pulse Source Pulse Oximeter Temp 97.1 F Temp Source Temporal Artery Scan Pulse Oximetry (%) 99 Oxygen Delivery Method Room Air Intake Visit Reasons: PHYSICAL- needs A1C Back Tender Fourdrinier Required: No Accompanied by: Self / Same As Patient Allergies Penicillins [PENICILLINS] Allergy (Severe, Verified 08/06/24 08:05) RASH penicillin V Allergy (Unknown, Verified 08/06/24 08:05) rash amlodipine Adverse Reaction (Intermediate, Verified 08/06/24 08:05) Heart palpitations naproxen Adverse Reaction (Intermediate, Verified 08/06/24 08:05) Dizziness naproxen Adverse Reaction (Intermediate, Uncoded 08/06/24 08:05) Weakness Medication List - Last Reconciled 08/06/24 by Julio House PA-C acetaminophen ER (Tylenol Arthritis Pain) 650 mg PO Q12H 30 days atorvastatin 20 mg PO DAILY 90 days blood pressure test kit-medium As directed blood sugar diagnostic (FreeStyle Lite Strips) TEST BLOOD SUGAR THREE TIMES DAILY blood-glucose meter (FreeStyle Lite Meter kit) As directed cholecalciferol (vitamin D3) 50 mcg PO DAILY 90 days cyclobenzaprine 5 mg PO BEDTIME 30 days dulaglutide (Trulicity) 0.75 mg (0.5 mL) subcut QWEEK 4 weeks fluticasone propionate 50 mcg/actuation 1 spray intranasal DAILY PRN lancets (TRUEplus Lancets) 1 gauge miscellaneous BID 30 days lisinopril 5 mg PO DAILY 90 days loratadine 10 mg PO DAILY 90 days metformin 500 mg PO DAILY 90 days naproxen 500 mg PO BID 90 days sumatriptan succinate 25 mg orally; take 1 tab at onset of headache; if no relief may repeat 1 tab after at least 2 hrs; max = 4 tabs/24 hr PO 30 days triamcinolone acetonide 0.1% 1 appl topical DAILY 90 days Tobacco use date assessed: 08/06/24 Fall risk assessment: No Falls in past year Last assessed Fall Risk: 08/06/24 Dental Screening Dental Screen Date: 08/06/24 Did you have a dental visit in the last 12 months?: No Did you have a dental problem in the last 6 months where you did not have access to dental care?: No Was dental information given to patient?: No HPI PHYSICAL- needs A1C HPI Details Patient is a 64-year-old female here today for routine annual physical. Patient has a past medical history significant for type 2 diabetes, hypertension hyperlipidemia. .. CHRONIC MEDICAL CONDITIONS--> Type 2 diabetes: A1c acceptable , patient continues on Trulicity 0.75 weekly and metformin 500 daily. She has been working extensively on her diet and lifestyle and has been able to lose weight. .. Hyperkalemia: Patient has a history of hyperkalemia that was thought to be due to losartan which we have switch to lisinopril. . ? .. ? Hypertension:? Blood pressure today in office acceptable.? Continues on lisinopril 5 mg . Has been off metoprolol. Also off of amlodipine due to side effects with dizziness and palpitations. ?? ,? Otherwise denies any chest pain, haley dizziness, headache. .. Hyperlipidemia: Has previously discontinued her statin therapy due to joint pains. Unfortunately LDL slightly above 100. Continues on atorvastatin. PLAN: Will recheck lipid panel to ensure normal total cholesterol and LDL Colonoscopy:? Done [place] [address] Moreno, tubular adenoma polyp needs repeat 5 years-needs has upcoming appt with GI Mammogram:? Done in May 2024, BI-RADS 1 Vaccines:? Up-to-date with tetanus vaccine, pneumonia vaccine, Declines COVID Vaccine, Considering Shingrex vaccine. [facility] Medical History Pelvic prolapse H/O: osteoarthritis History of depression H/O diabetes mellitus Hx of migraine headaches Hypertension Trigger finger of left hand Osteoporosis Depression Surgical History History of pelvic surgery History of tubal ligation Family History Father Diabetes Mental health disorder Substance use disorder Mother Diabetes Substance use disorder Maternal Grandmother No problems noted. Maternal Grandfather No problems noted. Paternal Grandmother No problems noted. Paternal Grandfather No problems noted. Sister Substance use disorder Brother Substance use disorder Social History Household Members: None Housing: Apartment Do you presently have visiting nurse or other home services: No Alcohol intake: never Patient Tobacco Use Status: Never used Tobacco e-Cigarette/Vaping Use: Never Used Second Hand Smoke Exposure: No service: No Current occupational status: disabled Current occupation: SSI/ rt hand Cognitive needs: No Hearing needs: No Vision needs: No Questionnaire PHQ-9 Over the last 2 weeks, how often have you been bothered by any of the following problems? 1. Little interest or pleasure in doing things: nearly every day 2. Feeling down, depressed, or hopeless: not at all 3. Trouble falling or staying asleep, or sleeping too much: not at all 4. Feeling tired or having little energy: not at all 5. Poor appetite or overeating: not at all 6. Feeling bad about yourself - or that you are a failure or have let yourself or your family down: not at all 7. Trouble concentrating on things, such as reading the newspaper or watching television: not at all 8. Moving or speaking so slowly that other people could have noticed. Or the opposite - being so fidgety or restless that you have been moving around a lot more than usual: not at all 9. Thoughts that you would be better off or of hurting yourself in some way: not at all Total score: 3 Depression Screening Interpretation: Negative Depression Screening Done: Yes 84606 - PHQ-9 Billing: Yes Source: Developed by Drs. Aly Suarez, Soila Wagoner, Carl Altman and colleagues, with an educational srinath from [employer]. Thrive Questionnaire Date Thrive assessed: 08/06/24 I am a: Patient What is your living situation today?: I choose not to answer this question Within the past 12 months, did the food you bought not last and you didn't have the money to get more?: I choose not to answer this question Within the past 12 months, did you worry whether your food would run out before you got money to buy more?: I choose not to answer this question Do you have trouble paying for medicines?: Yes Do you have trouble getting transportation to medical appointments?: Yes Do you have trouble paying your heating and electricity bill?: Yes Do you have trouble taking care of your child, family member or friend?: Yes Do you have trouble with day-to-day activities such as bathing, preparing meals, shopping, managing finances, etc.?: Yes Are you currently unemployed and looking for a job?: Yes Are you interested in more education?: Yes Please select the resources that you would like help with: None Currently or been in a relationship where the following occur: I choose not to answer THRIVE Score: 2 AUDIT C Alcohol Use Questionnaire (AUDIT-C) 1. How often do you have a drink containing alcohol?: Never Total Score: 0 Score Reviewed/Action Taken: No GALILEA-7 AMB Questionnaire GALILEA-7 Date GALILEA - 7 assessed: 08/06/24 Feeling nervous, anxious, or on edge: 0 = Not at all Not being able to stop or control worryin = Not at all Worrying too much about different things: 0 = Not at all Trouble relaxin = Not at all Being so restless that it is hard to sit still: 0 = Not at all Becoming easily annoyed or irritable: 0 = Not at all Feeling afraid as if something awful might happen: 0 = Not at all Total GALILEA-7 score (0-4 normal; 5-9 mild; 10-14 moderate; 15-21 severe): 0 Source: Developed by Drs. Aly Suarez, Soila Wagoner, Carl Altman and colleagues, with an educational srinath from [employer]. GALILEA-7 Assessment Billing GALILEA-7 Assessment Tool: GALILEA-7 Assessment 99691 Review of Systems Const Denies body aches, Denies chills, Denies excessive sweating, Denies fatigue, Denies fever(s) and Denies headache(s) Eyes Denies blurry vision ENT Denies dysphagia, Denies vertigo, Denies dizziness, Denies headache(s), Denies hearing loss and Denies tinnitus Card Denies chest pain, Denies chest pain with activity, Denies syncope, Denies irregular heart rhythm and Denies dyspnea Resp Denies chest congestion, Denies cough, Denies hemoptysis, Denies dyspnea and Denies wheezing GI Denies abdominal pain, Denies melena, Denies hematochezia, Denies coffee ground emesis, Denies dysphagia, Denies diarrhea, Denies nausea and Denies vomiting Denies urinary frequency, Denies dysuria, Denies urinary hesitancy and Denies urinary urgency Musc Denies arthralgias, Denies limited range of motion, Denies muscle cramps and Denies muscle weakness Skin/Breast Denies rash and Denies skin ulcer Neuro Denies Abnormal speech present, Denies confusion, Denies vertigo, Denies dizziness, Denies syncope, Denies headache(s), Denies memory loss and Denies seizure-like activity Psych Denies anxiety, Denies confusion, Denies depression, Denies memory loss, Denies panic attacks and Denies paranoia Endo Denies excessive sweating, Denies fatigue, Denies flushing, Denies polydipsia and Denies polyuria Aller/Immun Denies wheezing Physical exam (Primary Care) Vital Signs: Last Vital Signs Temp 97.1 F 08/06/24 07:47 Pulse 80 08/06/24 07:47 BP 154/84 H 08/06/24 07:47 Pulse Ox 99 08/06/24 07:47 Oxygen Delivery Method Room Air 08/06/24 07:47 BMI result Body Mass Index 28.1 Tobacco/Smoking Status: Tobacco use Status Tobacco use date assessed 08/06/24 08/06/24 07:49 Patient Tobacco Use Status Never used Tobacco 08/06/24 07:49 e-Cigarette/Vaping Use Never Used 08/06/24 07:49 PHQ-9: PHQ-9 Score PHQ-9: Total score 3 08/06/24 08:01 Depression Screening Interpretation: Negative Thrive Assessment: Date of Thrive Assessment Date Thrive assessed 08/06/24 08/06/24 07:49 Currently or been in a relationship where the following occur: I choose not to answer Const General: cooperative, comfortable, no acute distress, alert and awake; No confusion Orientation/consciousness: oriented to person, oriented to place, patient oriented x3 and No confusion HENMT Head: Yes normocephalic Ears: external ears normal and TM's normal bilaterally Face and sinus: No sinus tenderness Mouth: Normal oral and palatal mucosa present and tongue normal Teeth and gingiva: dentition normal and gingiva normal Throat: Yes posterior oropharynx normal, Yes tonsils normal and Yes uvula midline Eyes Conjunctivae: conjunctivae normal Sclerae: sclerae normal Pupils: Equal, round and reactive pupils present EOM: EOMs intact bilaterally Direct Ophthalmoscopy: No no photophobia Neck Neck: Yes no lymphadenopathy, No tender and Yes no JVD Thyroid: Thyroid normal Carotids: no bruits Chest Chest palpation & inspection: no tenderness Resp Effort & Inspection: normal respiratory effort, no audible wheezes, not labored and no stridor Auscultation: no crackles, no rales, no rhonchi and no wheezes Cardio Jugular venous distension: no JVD Rate: regular rate, not bradycardic and not tachycardic Rhythm: regular rhythm Bruits: no carotid bruits Peripheral pulses: Peripheral pulses 2+ throughout GI Inspection: Yes normal to inspection, No abdominal wall ecchymosis and No visible herniation Palpation (GI): Soft to palpation, nontender, no guarding, not rigid and No hepatosplenomegaly present Auscultation: normoactive bowel sounds General: Yes no CVA tenderness Back/Spine/Pelvis Back: no CVA tenderness and No back tenderness Cervical Spine: cervical ROM normal Thoracic/Lumbar Spine: thoracic and lumbar spine normal to inspection, straight leg raise negative bilaterally, No thoraco-lumbar ROM limited and No lumbar spinal tenderness Skin Lesions: no lesions Rashes: no rashes Wounds: no wounds Neuro General: oriented to person, oriented to place, patient oriented x3, CN's II-XI intact bilaterally and No confusion Cranial nerves: Yes Equal, round and reactive pupils present and Yes Normal accommodation reflex present Cognition (Neuro): normal cognition Speech: No Abnormal speech present Gait exam (Neuro): Normal gait present Motor exam (neuro): 5/5 motor strength present throughout Extrem Right upper extremity: full ROM; no cyanosis Left upper extremity: full ROM; no cyanosis Right lower extremity: no edema Left lower extremity: no edema Psych Appearance: grossly normal Mental Status: mental status grossly normal Affect: normal affect Attitude: cooperative Thought process: Normal thought process present Results AMB Hemoglobin A1c AMB Hemoglobin A1c 6.8 % Last Edit by Hermila Sanchez CMA on 08/06/24 08:02 Results Reviewed Results Reviewed: Laboratory Last Values Hgb A1c (Clinic) 6.8 % (4.0-6.0) H 08/06/24 08:01 Coding Level of Care Code Est Pt Prev Care >65y(11355) Diagnoses Annual physical exam Z00.00 Type 2 diabetes mellitus without complication, with long-term current use of insulin E11.9; Z79.4 Diabetes mellitus jail insulin use: with jail use Diabetes mellitus complication status: without complication Hyperkalemia E87.5 Primary hypertension I10 Hypertension type: primary hypertension Mixed hyperlipidemia E78.2 Hyperlipidemia type: mixed hyperlipidemia Additional Codes GALILEA-7 Assessment Billing - GALILEA-7 Assessment Tool: GALILEA-7 Assessment [id number] ([id number]) PHQ-9 - 06181 - PHQ-9 Billing: Yes ([id number]) Assessment & Plan Assessment & Plan (1) Annual physical exam: Code(s): Z00.00 - Encounter for general adult medical examination without abnormal findings Category: Medical Plan: as per hPI (2) DMII (diabetes mellitus, type 2): Code(s): E11.9 - Type 2 diabetes mellitus without complications Category: Medical Qualifiers: Diabetes mellitus watermelon harvesting supervisor insulin use: with watermelon harvesting supervisor use Diabetes mellitus complication status: without complication Qualified Code(s): E11.9 - Type 2 diabetes mellitus without complications; Z79.4 - meterman (current) use of insulin Plan: Patient's type 2 diabetes well controlled with current diabetic medication. Today's A1c is 6.8. A1c is to remain below 7.0 (3) Hyperkalemia: Code(s): E87.5 - Hyperkalemia Category: Medical Plan: Has a history of mild hyperkalemia. Patient has been prescribed polystyrene in the past which had helped to reduce her potassium.. Would like to take this once a week for next few weeks. (4) HTN (hypertension): Code(s): I10 - Essential (primary) hypertension Category: Medical Qualifiers: Hypertension type: primary hypertension Qualified Code(s): I10 - Essential (primary) hypertension Plan: Patient's blood pressure elevated today in office. Does not monitor blood pressure at home. She has been off of amlodipine due to med effects. Patient did have hyperkalemia though was thought to be due to losartan. She is on low-dose lisinopril and will consider increasing lisinopril dose. Will continue current dose of antihypertensive medication with goal blood pressure to remain below 140/90 (5) HLD (hyperlipidemia): Code(s): E78.5 - Hyperlipidemia, unspecified Category: Medical Qualifiers: Hyperlipidemia type: mixed hyperlipidemia Qualified Code(s): E78.2 - Mixed hyperlipidemia Plan: Patient's most recent lipid panel fairly well controlled. LDL remains slightly above goal of 100. She will continue working on lifestyle and dietary modifications. Will continue her current dose of atorvastatin for now. Goal LDL is to be below 100 Orders: Orders Microalbumin, Random (w Creat) Today I10 - Essential (primary) hypertension Complete Blood Count no Diff Today I10 - Essential (primary) hypertension Comprehensive [place]. Panel Fast Today I10 - Essential (primary) hypertension XR DEXA axial skeleton Today Z78.0 - Asymptomatic menopausal state AMB Hemoglobin A1c Today E11.9 - Type 2 diabetes mellitus without complications, Z79.4 - meterman (current) use of insulin Lipid Panel Today E78.2 - Mixed hyperlipidemia Medications: Changed From naproxen 500 mg PO BID 90 days 180 tabs 1RF pain M79.10 - Myalgia, unspecified site To naproxen 500 mg PO BID 30 days PRN 60 tabs 2RF pain M79.10 - Myalgia, unspecified site Refilled blood pressure test kit-medium As directed 1 ea 0RF I10 - Essential (primary) hypertension Patient Instructions: Goal: A1c to be below 7.0, blood pressure to be below 140/90 Barrier: Adherence to physical activity and healthy eating habits
== END 2024-08-06 08:25 | disposition home or self-care (01) ==
LOC: HO.HMCH 07:39
PROVIDERS: PCP Physician Assistant; Visit Provider Physician Assistant
DX: Z00.00 Encounter for general adult medical examination without abnormal findings (principal); E11.9 Type 2 diabetes mellitus without complications; Z79.4 Long term (current) use of insulin; E87.5 Hyperkalemia; I10 Essential (primary) hypertension; E78.2 Mixed hyperlipidemia

== ENCOUNTER 2024-08-06 07:38 | Outpatient (REF) | payer OTHER, SELFPAY ==
[2024-08-06 09:28] LABS: Hematocrit 37.5 % (37.0-47.0); Mean Corpuscular HGB Conc 34.7 g/dl (31.0-35.0); Mean Corpuscular Hemoglobin 30.4 pg (27.0-33.0); Mean Corpuscular Volume 87.6 fL (80.0-98.0); Mean Platelet Volume 9.7 fL (9.4-12.3); Platelet Count 208 X10*3/uL (160-400); Red Blood Count 4.28 X10*6/uL (4.20-5.50); Red Cell Distribution Width 13.2 % (11.0-16.0)
[2024-08-06 10:01] LABS: Alanine Aminotransferase 10 U/L (0-31); Albumin Level 4.4 g/dL (3.5-5.0); Alkaline Phosphatase 56 U/L (39-117); Anion Gap 11 (12-20); Aspartate Amino Transferase 26 U/L (5-31); Bilirubin Total 0.6 mg/dL (0.0-1.0); Blood Urea Nitrogen 13 mg/dL (9-16); Carbon Dioxide 27 mmol/L (22-29); Chloride 108 mmol/L (96-108); Cholesterol 205 mg/dL (<200); Estimated Glomerular Filt Rate > 60; Glucose Fasting 90 mg/dL (60-99); HDL Cholesterol 68 mg/dL (>40); LDL Cholesterol Calculated 124 mg/dL (<100); Potassium 5.2 mmol/L (3.3-5.1); Sodium 141 mmol/L (135-145); Total Protein 7.5 g/dL (6.5-8.0); Triglycerides 69 mg/dL (<150)
[2024-08-06 10:17] LABS: Creatinine Urine 62.38 mg/dL; Microalbum/Creatinine Ratio Ur 67.3 ug/mg cr (<30)
== END 2024-08-06 07:39 | disposition home or self-care (01) ==
LOC: HO.LAB 07:38
PROVIDERS: PCP Physician Assistant; Visit Provider Physician Assistant
DX: Z00.00 Encounter for general adult medical examination without abnormal findings (principal); E11.9 Type 2 diabetes mellitus without complications; E87.5 Hyperkalemia; I10 Essential (primary) hypertension; E78.2 Mixed hyperlipidemia; Z79.4 Long term (current) use of insulin; Z79.899 Other long term (current) drug therapy
CPT/HCPCS: 36415; 80053; 80061; 82043; 82570; 83036; 85027; 96127; 99397

== ENCOUNTER 2024-08-19 08:27 | Outpatient (AMB) | payer OTHER, SELFPAY ==
--- NOTE | 2024-08-19 09:05 | MHC.OFFVIS ---
Vital Signs 08/19/24 09:07 Height 5 ft 1 in Weight 148 lb BMI 28.0 BP 158/88 H Blood Pressure Location Rt brachial Position Sitting Pulse 78 Pulse Source Pulse Oximeter Pulse Oximetry (%) 99 Oxygen Delivery Method Room Air Comment Pt reports not taking BP med and feels anxious. Intake Visit Reasons: Colonoscopy Sreening R/S X3 Intake Note: NEW PATIENT for colo recall. prev hx of colo [address] Moreno. CC: Pt denies any GI sx or concerns at this time. Pt coming from Dr. Moreno per scheduling conflicts. PCP recommended based on timing and need for colo based on time between procedures. Employment Training Specialist Required: No Accompanied by: Self / Same As Patient Allergies Penicillins [PENICILLINS] Allergy (Severe, Verified 08/19/24 09:11) RASH penicillin V Allergy (Unknown, Verified 08/19/24 09:11) rash amlodipine Adverse Reaction (Intermediate, Verified 08/19/24 09:11) Heart palpitations naproxen Adverse Reaction (Intermediate, Verified 08/19/24 09:11) Dizziness naproxen Adverse Reaction (Intermediate, Uncoded 08/19/24 09:11) Weakness HPI HPI Colonoscopy Sreening R/S X3: Details: 64 year old? female with past medical history of migraine, hypertension, hyperlipidemia, osteoarthritis, diabetes is here today for pre colonoscopy screening.? Patient was sent to us by her PCP.? Last colonoscopy was in 2018 1 tubular adenoma found. Patient denies any gastrointestinal symptoms in the past or at present.? Denies any personal or family history of gastrointestinal disease or CRC.? Denies history of difficulty with sedation or anesthesia in the past.? Negative for history of sleep apnea.? Denies any history of cardiac, renal, pulmonary, or hepatic disease.?? No history of infectious? diseases like hepatitis A, B, C, HIV or tuberculosis.? Patient is not on any anticoagulation PFSH Medical History Pelvic prolapse H/O: osteoarthritis History of depression H/O diabetes mellitus Hx of migraine headaches Hypertension Trigger finger of left hand Osteoporosis Depression Surgical History Hx of colonoscopy History of pelvic surgery History of tubal ligation Family History Father Diabetes Mental health disorder Substance use disorder Mother Diabetes Substance use disorder Maternal Grandmother No problems noted. Maternal Grandfather No problems noted. Paternal Grandmother No problems noted. Paternal Grandfather No problems noted. Sister Substance use disorder Brother Substance use disorder Social History Household Members: None Housing: Apartment Do you presently have visiting nurse or other home services: No Alcohol intake: never Patient Tobacco Use Status: Never used Tobacco e-Cigarette/Vaping Use: Never Used Second Hand Smoke Exposure: No service: No Current occupational status: disabled Current occupation: [employer]SI/ rt hand Cognitive needs: No Hearing needs: No Vision needs: No Review of Systems Const Denies weight gain and Denies weight loss ENT Reports no additional complaints, Denies dysphagia and Denies odynophagia Card Reports no additional complaints Resp Reports no additional complaints GI Denies abdominal pain, Denies belching, Denies melena, Denies bloating, Denies change in bowel habits, Denies dysphagia, Denies excessive flatus, Denies dyspepsia, Denies heartburn, Denies diarrhea, Denies loose stools, Denies nausea, Denies odynophagia and Denies vomiting Musc Reports no additional complaints Neuro Reports no additional complaints Psych Reports no additional complaints Endo Reports no additional complaints Physical Exam Vital Signs: Last Vital Signs Pulse 78 08/19/24 09:07 BP 158/88 H 08/19/24 09:07 Pulse Ox 99 08/19/24 09:07 Oxygen Delivery Method Room Air 08/19/24 09:07 BMI result Body Mass Index 28.0 Const General: healthy appearing, no acute distress and well developed Nutritional Appearance: well nourished Orientation/consciousness: patient oriented x3 Resp Effort & Inspection: normal respiratory effort, able to speak in complete sentences, no tracheal deviation and symmetric chest movement Auscultation: clear to auscultation bilaterally Cardio Jugular venous distension: no JVD Rate: regular rate Heart sounds: S1 normal heart sound present, S2 normal heart sound present, no gallops and no murmurs GI Inspection: Yes normal to inspection and No distended Palpation (GI): Soft to palpation, not firm, nontender and No hepatosplenomegaly present Auscultation: normal bowel sounds General: Yes no CVA tenderness Back/Spine/Pelvis Back: no CVA tenderness Skin General skin exam: elasticity normal, turgor normal and dry skin Neuro General: patient oriented x3 Psych Appearance: grossly normal Mental Status: mental status grossly normal Assessment & Plan Assessment & Plan (1) Tubular adenoma of colon: Code(s): D12.6 - Benign neoplasm of colon, unspecified Category: Medical (2) Screen for colon cancer: Code(s): Z12.11 - Encounter for screening for malignant neoplasm of colon Plan Patient denies any GI, cardiac or respiratory symptoms.? Denies any issues with anesthesia in the past.? Denies any history of sleep apnea.? No history infectious diseases in the past or present.? Not on any anticoagulation therapy.? No family or personal history of colon cancer.? Patient denies melena, hematochezia, unintentional weight loss or ribbon like stools.? Discussed at length the pre-procedure,? prep, diet & medications as well as what to expect prior, during and after the procedure.?? Stressed the importance of good bowel prep.? Recommended the use of Vaseline or Calmoseptine OTC & baby wipes with bowel movements to promote comfort.? ?Patient verbalizes understanding and agrees to plan of care.? She was given the opportunity to ask questions and all questions answered.? We will see her after the procedure.? Medications: New bisacodyl (Dulcolax (bisacodyl)) Start taking 2 tablet every night 7 days before the procedure and 1 day before procedure take 2 tablets at noon time followed by MiraLax prep 10 mg (2 x 5 mg) PO BEDTIME 14 tabs 0RF Z12.11 - Encounter for screening for malignant neoplasm of colon polyethylene glycol 3350 (Miralax) As directed by gastroenterology department at [facility] 238 grams PO ONCE 238 grams 0RF Z12.11 - Encounter for screening for malignant neoplasm of colon Coding Level of Care Code New Pt Level 3 (09625) Diagnoses Tubular adenoma of colon D12.6 Screen for colon cancer Z12.11 Time Spent (min) 40 Comment 30 minutes spent with patient and additional 10 minutes spent reviewing her records
[2024-08-19 09:07] VITALS: BP 158/88; PULSE 78; O2SAT 99; BMI 28.0
== END 2024-08-19 09:54 | disposition home or self-care (01) ==
LOC: HO.HGI 08:28
PROVIDERS: PCP Physician Assistant; Visit Provider Nurse Practitioner Family
DX: Z86.0101 Personal history of adenomatous and serrated colon polyps (principal); Z12.11 Encounter for screening for malignant neoplasm of colon; Z01.818 Encounter for other preprocedural examination
CPT/HCPCS: 99203

== ENCOUNTER → 2024-08-19 08:27 | Outpatient (BNVA) | payer OTHER, SELFPAY | PROVIDERS: PCP Physician Assistant; Visit Provider Nurse Practitioner Family | DX: Z12.11 Encounter for screening for malignant neoplasm of colon (principal); D12.6 Benign neoplasm of colon, unspecified | CPT/HCPCS: 99202 ==

== ENCOUNTER 2024-10-08 10:26 | Outpatient (REF) | payer OTHER, SELFPAY ==
--- NOTE | ~2024-10-08 | MM_ITS ---
EXAMINATION: DXA BONE DENSITY AXIAL HISTORY: Z78.0 - Asymptomatic menopausal state TECHNIQUE: INCIDE Dual energy absorptiometry (DEXA) of the lumbar spine, total left hip, and femoral neck was performed. COMPARISON: There are no prior studies for comparison. FINDINGS: The bone mineral density of the lumbar spine is 1.102 g/cm2, corresponding to a T-score of -0.8, and a Z-score of 0.8. This is indicative of normal bone mineral density. The bone mineral density of the left total hip is 1.052 g/cm2, corresponding to a T-score of 0.3, and a Z-score of 1.6. This is indicative of normal bone mineral density. The bone mineral density of the left femoral neck is 1.074 g/cm2, corresponding to a T-score of 0.3, and a Z-score of 1.8. This is indicative of normal bone mineral density. MM/XR DEXA axial skeleton IMPRESSION: Based on bone mineral density, and according to World Health Organization (WHO) criteria, the diagnosis is consistent with normal bone mineral density. Statistically, 68% of repeat scans fall within 1 SD (+/- 0.010 g/cm2 for AP spine L1-L4) and 1 SD (+/- 0.012 g/cm2 for femur total) FRAX is a trademark of the [employer] [place] for Metabolic Bone Disease, a World Health Organization (WHO) Collaborating Center. Electronically signed by: Aly Duke MD 10/08/2024 11:17 AM EDT
== END 2024-10-08 10:27 | disposition home or self-care (01) ==
LOC: HO.MAMMO 10:26
PROVIDERS: PCP Physician Assistant; Visit Provider Physician Assistant
DX: Z13.820 Encounter for screening for osteoporosis (principal); Z78.0 Asymptomatic menopausal state
CPT/HCPCS: 77080

== ENCOUNTER → 2024-10-08 11:00 | Outpatient (BNV) | payer OTHER, SELFPAY | PROVIDERS: PCP Physician Assistant; Visit Provider Radiology Diagnostic Radiology | DX: E28.39 Other primary ovarian failure (principal) | CPT/HCPCS: 77080 ==

== ENCOUNTER 2024-10-14 13:50 | Outpatient (AMB) | payer OTHER, SELFPAY ==
--- NOTE | 2024-10-14 14:01 | HO.NEPHOV ---
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 She has a past medical history significant for type 2 diabetes and hypertension. She is on Trulicity 0.75 weekly and metformin 500 daily. She has been working extensively on her diet and lifestyle and has been able to lose weight. She has a history of hyperkalemia that was thought to be due to losartan but she is on lisinopril. She had been off metoprolol. For hypertension she was on amlodipine but was discontinued due to side effects with dizziness and palpitations. She denies excess NSAID's, salt substitute, H/O periodic paralysis, excessive exercise, renal disease, metabolic acidosis, uretero jejunostomy. She maintains good hydration and has no family H/O hyperkalemia. [facility] Medical History Pelvic prolapse H/O: osteoarthritis History of depression H/O diabetes mellitus Hx of migraine headaches Hypertension Trigger finger of left hand Osteoporosis Depression Surgical History Hx of colonoscopy History of pelvic surgery History of tubal ligation Family History Father Diabetes Mental health disorder Substance use disorder Mother Diabetes Substance use disorder Maternal Grandmother No problems noted. Maternal Grandfather No problems noted. Paternal Grandmother No problems noted. Paternal Grandfather No problems noted. Sister Substance use disorder Brother Substance use disorder Social History Household Members: None Housing: Apartment Do you presently have visiting nurse or other home services: No Alcohol intake: never Patient Tobacco Use Status: Never used Tobacco e-Cigarette/Vaping Use: Never Used Second Hand Smoke Exposure: No service: No Current occupational status: disabled Current occupation: [employer]/ rt hand Cognitive needs: No Hearing needs: No Vision needs: No Physical Exam Const General: comfortable and no acute distress Orientation/consciousness: patient oriented x3 HEENT Head: Yes normocephalic Mouth: Normal oral and palatal mucosa present Eyes EOM: EOMs intact bilaterally Neck Neck: Yes supple Resp Auscultation: clear to auscultation bilaterally Cardio Jugular venous distension: no JVD Rate: regular rate GI Palpation (GI): Soft to palpation Auscultation: normal bowel sounds General: Yes no CVA tenderness Back/Spine/Pelvis Back: no CVA tenderness Skin General skin exam: no rashes or lesions noted Neuro General: patient oriented x3 and moves all extremities Extrem General: Yes no pedal edema Results Reviewed Nephrology Results: Hgb, (12.0-16.0) 13.0 g/dl 08/06/24 WBC, (4.8-10.8) 6.0 X10*3/uL 08/06/24 Plt Count, (160-400) 208 X10*3/uL 08/06/24 Sodium, (135-145) 141 mmol/L 08/06/24 Potassium, (3.3-5.1) 5.2 mmol/L H 08/06/24 Chloride, (96-108) 108 mmol/L 08/06/24 Carbon Dioxide, (22-29) 27 mmol/L 08/06/24 BUN, (9-16) 13 mg/dL 08/06/24 Creatinine, (0.5-1.4) 0.78 mg/dL 08/06/24 Calcium, (8.4-10.2) 10.0 mg/dL Δ 08/06/24 Urine Creatinine 62.38 mg/dL 08/06/24 Assessment & Plan Assessment & Plan (1) HTN (hypertension): Code(s): I10 - Essential (primary) hypertension Category: Medical Qualifiers: Hypertension type: primary hypertension Qualified Code(s): I10 - Essential (primary) hypertension (2) Hyperkalemia: Code(s): E87.5 - Hyperkalemia Category: Medical Plan Has normal renal function but hypertensive with intermittent hyperkalemia Not volume expanded. No family H/O hyperkalemia; Imaging of renal arteries ordered Possibilities explained; Labs ordered; Low K diet; May need K lowering medn/florinef Shall optimize BP medications based on evolving data; Answered all questions Orders: Orders US renal doppler 4 Weeks E87.5 - Hyperkalemia, I10 - Essential (primary) hypertension Aldost/Renin 2 Weeks E87.5 - Hyperkalemia, I10 - Essential (primary) hypertension Renin 2 Weeks E87.5 - Hyperkalemia, I10 - Essential (primary) hypertension Potassium Urine Random 2 Weeks E87.5 - Hyperkalemia, I10 - Essential (primary) hypertension Osmolality Urine 2 Weeks E87.5 - Hyperkalemia, I10 - Essential (primary) hypertension Blood Urea Nitrogen 2 Weeks E87.5 - Hyperkalemia, I10 - Essential (primary) hypertension US renal BI 4 Weeks E87.5 - Hyperkalemia, I10 - Essential (primary) hypertension Aldosterone 2 Weeks E87.5 - Hyperkalemia, I10 - Essential (primary) hypertension Osmolality, Serum 2 Weeks E87.5 - Hyperkalemia, I10 - Essential (primary) hypertension Electrolytes 2 Weeks E87.5 - Hyperkalemia, I10 - Essential (primary) hypertension Creatinine 2 Weeks E87.5 - Hyperkalemia, I10 - Essential (primary) hypertension Coding Level of Care Code New Pt Level 4 (14508) Diagnoses Primary hypertension I10 Hypertension type: primary hypertension Hyperkalemia E87.5
[2024-10-14 14:22] VITALS: BP 160/84; PULSE 101; O2SAT 98; BMI 27.8
== END 2024-10-14 14:48 | disposition home or self-care (01) ==
LOC: HO.HKA 13:50
PROVIDERS: PCP Physician Assistant; Referring Provider Physician Assistant; Visit Provider Internal Medicine Nephrology
DX: I10 Essential (primary) hypertension (principal); E87.5 Hyperkalemia
CPT/HCPCS: 99204

== ENCOUNTER → 2024-10-14 13:50 | Outpatient (BNVA) | payer OTHER, SELFPAY | PROVIDERS: PCP Physician Assistant; Referring Provider Physician Assistant; Visit Provider Internal Medicine Nephrology | DX: I10 Essential (primary) hypertension (principal); E87.5 Hyperkalemia | CPT/HCPCS: 99202 ==

== ENCOUNTER 2024-10-30 07:43 | Outpatient (REF) | payer OTHER, SELFPAY ==
[2024-10-30 08:57] LABS: Osmolality, Serum 295 mosm/kg (281-305)
[2024-10-30 09:09] LABS: Anion Gap 12 (12-20); Blood Urea Nitrogen 16 mg/dL (9-16); Carbon Dioxide 26 mmol/L (22-29); Chloride 104 mmol/L (96-108); Estimated Glomerular Filt Rate > 60; Potassium 4.9 mmol/L (3.3-5.1); Sodium 137 mmol/L (135-145)
[2024-11-04 16:19] LABS: Plasma Renin Activity 1.62 ng/mL/h (0.25-5.82)
== END 2024-10-30 07:44 | disposition home or self-care (01) ==
LOC: HO.LAB 07:43
PROVIDERS: PCP Physician Assistant; Visit Provider Internal Medicine Nephrology
DX: I10 Essential (primary) hypertension (principal); E87.5 Hyperkalemia
CPT/HCPCS: 36415; 80051; 82088; 82565; 83930; 83935; 84133; 84244; 84520

== ENCOUNTER 2024-11-18 07:34 | Outpatient (AMB) | payer OTHER, SELFPAY ==
[2024-11-18 08:08] VITALS: BP 140/78; PULSE 77; RESP 16; TEMP 36.2; O2SAT 99; BMI 26.8
--- NOTE | 2024-11-18 08:08 | A.OFFPC_ITS ---
Vital Signs 11/18/24 08:08 Height 5 ft 1 in Weight 142 lb BMI 26.8 BP 140/78 H Blood Pressure Location Rt brachial Position Sitting Respiration 16 Pulse 77 Pulse Source Pulse Oximeter Temp 97.1 F Temp Source Temporal Artery Scan Pulse Oximetry (%) 99 Oxygen Delivery Method Room Air Intake Visit Reasons: f/u HTN Allergies Penicillins (PENICILLINS) Allergy (Severe, Verified 11/18/24 08:18) RASH penicillin V Allergy (Unknown, Verified 11/18/24 08:18) rash amlodipine Adverse Reaction (Intermediate, Verified 11/18/24 08:18) Heart palpitations naproxen Adverse Reaction (Intermediate, Verified 11/18/24 08:18) Dizziness naproxen Adverse Reaction (Intermediate, Uncoded 11/18/24 08:18) Weakness Medication List - Last Reconciled 11/18/24 by Julio House PA-C acetaminophen ER (Tylenol Arthritis Pain) 650 mg PO Q12H 30 days atorvastatin 20 mg PO DAILY 90 days bisacodyl (Dulcolax (bisacodyl)) 10 mg (2 x 5 mg) PO BEDTIME blood pressure test kit-medium As directed blood sugar diagnostic (FreeStyle Lite Strips) TEST BLOOD SUGAR THREE TIMES DAILY blood-glucose meter (FreeStyle Lite Meter kit) As directed cholecalciferol (vitamin D3) 50 mcg PO DAILY 90 days cyclobenzaprine 5 mg PO BEDTIME PRN dulaglutide (Trulicity) 0.75 mg (0.5 mL) subcut QWEEK 4 weeks fluticasone propionate 50 mcg/actuation 1 spray intranasal DAILY PRN lancets (TRUEplus Lancets) 1 gauge miscellaneous BID 30 days lisinopril 5 mg PO DAILY 90 days loratadine 10 mg PO DAILY 90 days metformin 500 mg PO DAILY 90 days polyethylene glycol 3350 (Miralax) 238 grams PO ONCE sodium polystyrene sulf-sorbtl 15-20 gram/60 mL 60 mL PO .weekly 4 weeks sumatriptan succinate 25 mg orally; take 1 tab at onset of headache; if no relief may repeat 1 tab after at least 2 hrs; max = 4 tabs/24 hr PO 30 days triamcinolone acetonide 0.1% 1 appl topical DAILY 90 days Tobacco use date assessed: 11/18/24 Fall risk assessment: No Falls in past year Last assessed Fall Risk: 11/18/24 Dental Screening Dental Screen Date: 11/18/24 Did you have a dental visit in the last 12 months?: No Did you have a dental problem in the last 6 months where you did not have access to dental care?: No Was dental information given to patient?: Patient declined HPI f/u HTN HPI Details Patient is a 64-year-old female here today for a follow-up visit Patient has a past medical history significant for type 2 diabetes, hypertension hyperlipidemia. Type 2 diabetes: A1c acceptable , patient continues on Trulicity 0.75 weekly and metformin 500 daily. She has been working extensively on her diet and lifestyle and has been able to lose weight. .. Hyperkalemia: Has establish care with Nephrology in his undergoing evaluation. Most recent potassium stable. Patient has a history of hyperkalemia that was thought to be due to losartan which we have switch to lisinopril. . ? .. ? Hypertension:? Blood pressure today in office slightly elevated today.? Continues on lisinopril 5 mg . Has been off metoprolol. Also off of amlodipine due to side effects with dizziness and palpitations. ?? ,? Otherwise denies any chest pain, haley dizziness, headache. .. Hyperlipidemia: Has previously discontinued her statin therapy due to joint pains. Unfortunately LDL slightly above 100. Continues on atorvastatin 20. If LDL remains above 100 will consider increasing atorvastatin dose. Laboratory Tests 02/20/24 03/02/24 03/02/24 08:25 08:41 08:50 Hgb 12.7 Potassium Hgb A1c (Clinic) 6.9 H Osmolality Cholesterol 194 LDL Cholesterol, C alc 114 H Renin Activity Urine Osmolality Urine Microalbumin 72.0 03/31/24 08/06/24 08/06/24 08:14 08:01 08:54 Hgb Potassium 4.5 5.2 H Hgb A1c (Clinic) 6.8 H Osmolality Cholesterol LDL Cholesterol, C alc Renin Activity Urine Osmolality Urine Microalbumin 10/30/24 10/30/24 07:58 08:00 Hgb Potassium 4.9 Hgb A1c (Clinic) Osmolality 295 Cholesterol LDL Cholesterol, C alc Renin Activity 1.62 Urine Osmolality 207 L Urine Microalbumin [facility] Medical History Pelvic prolapse H/O: osteoarthritis History of depression H/O diabetes mellitus Hx of migraine headaches Hypertension Trigger finger of left hand Osteoporosis Depression Surgical History Hx of colonoscopy History of pelvic surgery History of tubal ligation Family History Father Diabetes Mental health disorder Substance use disorder Mother Diabetes Substance use disorder Maternal Grandmother No problems noted. Maternal Grandfather No problems noted. Paternal Grandmother No problems noted. Paternal Grandfather No problems noted. Sister Substance use disorder Brother Substance use disorder Social History Household Members: None Housing: Apartment Do you presently have visiting nurse or other home services: No Alcohol intake: never Patient Tobacco Use Status: Never used Tobacco e-Cigarette/Vaping Use: Never Used Second Hand Smoke Exposure: No service: No Current occupational status: disabled Current occupation: [employer]SI/ rt hand Cognitive needs: No Hearing needs: No Vision needs: No Questionnaire PHQ-9 Over the last 2 weeks, how often have you been bothered by any of the following problems? 1. Little interest or pleasure in doing things: nearly every day 2. Feeling down, depressed, or hopeless: not at all 3. Trouble falling or staying asleep, or sleeping too much: not at all 4. Feeling tired or having little energy: not at all 5. Poor appetite or overeating: not at all 6. Feeling bad about yourself - or that you are a failure or have let yourself or your family down: not at all 7. Trouble concentrating on things, such as reading the newspaper or watching television: not at all 8. Moving or speaking so slowly that other people could have noticed. Or the opposite - being so fidgety or restless that you have been moving around a lot more than usual: not at all 9. Thoughts that you would be better off or of hurting yourself in some way: not at all Total score: 3 Depression Screening Interpretation: Positive Depression Screening Follow-up: Existing condition and Declines treatment Depression Screening Done: Yes 26926 - PHQ-9 Billing: Yes Source: Developed by Jair Harriset B.W. Ciaran, Carl Almtan and colleagues, with an educational srinath from [employer]. Thrive Questionnaire Date Thrive assessed: 08/06/24 I am a: Patient What is your living situation today?: I choose not to answer this question Within the past 12 months, did the food you bought not last and you didn't have the money to get more?: I choose not to answer this question Within the past 12 months, did you worry whether your food would run out before you got money to buy more?: I choose not to answer this question Do you have trouble paying for medicines?: I choose not to answer this question Do you have trouble getting transportation to medical appointments?: I choose not to answer this question Do you have trouble paying your heating and electricity bill?: I choose not to answer this question Do you have trouble taking care of your child, family member or friend?: I choose not to answer this question Do you have trouble with day-to-day activities such as bathing, preparing meals, shopping, managing finances, etc.?: I choose not to answer this question Are you currently unemployed and looking for a job?: I choose not to answer this question Are you interested in more education?: I choose not to answer this question Please select the resources that you would like help with: None Currently or been in a relationship where the following occur: I choose not to answer THRIVE Score: 0 AUDIT C Alcohol Use Questionnaire (AUDIT-C) 1. How often do you have a drink containing alcohol?: Never 3. How often do you have six or more drinks on one occasion?: Never Total Score: 0 Score Reviewed/Action Taken: No GALILEA-7 AMB Questionnaire GALILEA-7 Date GALILEA - 7 assessed: 08/06/24 Feeling nervous, anxious, or on edge: 0 = Not at all Not being able to stop or control worryin = Not at all Worrying too much about different things: 0 = Not at all Trouble relaxin = Not at all Being so restless that it is hard to sit still: 0 = Not at all Becoming easily annoyed or irritable: 0 = Not at all Feeling afraid as if something awful might happen: 0 = Not at all Total GALILEA-7 score (0-4 normal; 5-9 mild; 10-14 moderate; 15-21 severe): 0 Source: Developed by Drs. Aly Suarez, Soila Wagoner, Carl Altman and colleagues, with an educational srinath from [employer]. GALILEA-7 Assessment Billing GALILEA-7 Assessment Tool: GALILEA-7 Assessment 32344 Review of Systems Const Denies headache(s) Eyes Denies loss of vision ENT Denies vertigo, Denies dizziness, Denies headache(s) and Denies sore throat Card Denies chest pain, Denies leg edema and Denies lightheadedness Resp Denies cough, Denies hemoptysis and Denies wheezing GI Denies abdominal pain, Denies melena, Denies constipation, Denies diarrhea and Denies vomiting Denies urinary frequency, Denies dysuria and Denies urinary urgency Musc Denies arthralgias, Denies joint swelling, Denies numbness and Denies tingling Neuro Denies Abnormal speech present, Denies behavioral changes, Denies vertigo, Denies dizziness, Denies headache(s), Denies loss of vision, Denies memory loss, Denies numbness and Denies tingling Psych Denies anxiety, Denies behavioral changes, Denies depression, Denies memory loss and Denies panic attacks Gennaro/Lymph Denies easy bleeding and Denies easy bruising Aller/Immun Denies wheezing Physical exam (Primary Care) Vital Signs: Last Vital Signs Temp 97.1 F 11/18/24 08:08 Pulse 77 11/18/24 08:08 Resp 16 11/18/24 08:08 BP 140/78 H 11/18/24 08:08 Pulse Ox 99 11/18/24 08:08 Oxygen Delivery Method Room Air 11/18/24 08:08 Care Plan Goal for BP management: Continue lisinopril 5 mg, considering increasing dose to 10 mg though being cautious due to hyperkalemia Next steps: monitor blood pressure at home with goal blood pressure to be below 140/90 BMI result Body Mass Index 26.8 Tobacco/Smoking Status: Tobacco use Status Tobacco use date assessed 11/18/24 11/18/24 08:14 Patient Tobacco Use Status Never used Tobacco 11/18/24 08:14 e-Cigarette/Vaping Use Never Used 11/18/24 08:14 PHQ-9: PHQ-9 Score PHQ-9: Total score 3 11/18/24 08:14 Depression Screening Interpretation: Positive Depression Screening Follow-up: Existing condition and Declines treatment Thrive Assessment: Date of Thrive Assessment Date Thrive assessed 08/06/24 11/18/24 08:14 Currently or been in a relationship where the following occur: I choose not to answer Const General: healthy appearing, no acute distress, alert and awake Nutritional Appearance: well nourished Orientation/consciousness: oriented to person, oriented to place and oriented to time HENMT Ears: TM's normal bilaterally General nose exam: Normal nasal mucous membranes and turbinates present Eyes Conjunctivae: conjunctivae normal Sclerae: sclerae normal Pupils: Equal, round and reactive pupils present Neck Neck: Yes no lymphadenopathy and Yes no JVD Thyroid: Thyroid normal Carotids: no bruits Resp Effort & Inspection: normal respiratory effort and not tachypneic Auscultation: no crackles, no rales, no rhonchi and no wheezes Cardio Rate: regular rate Rhythm: regular rhythm Heart sounds: no murmurs and normal S1 and S2 GI Palpation (GI): Soft to palpation, nontender, no hepatomegaly and no splenomegaly Auscultation: normal bowel sounds Skin General skin exam: no rashes or lesions noted and dry skin Neuro General: oriented to person, oriented to place and oriented to time Cranial nerves: Yes Equal, round and reactive pupils present Speech: No Abnormal speech present Gait exam (Neuro): Normal gait present Motor exam (neuro): no tremor noted Extrem Right upper extremity: full ROM Left upper extremity: full ROM Right lower extremity: full ROM; no edema Left lower extremity: full ROM; no edema Psych Mental Status: mental status grossly normal Speech and movement: Normal speech and movement present Affect: normal affect Attitude: cooperative Thought process: Normal thought process present Results AMB Hemoglobin A1c AMB Hemoglobin A1c 6.8 % Last Edit by Giselle Recio CMA on 11/18/24 08:18 Coding Level of Care Code Est Pt Level 4 (46399) Diagnoses Type 2 diabetes mellitus without complication, with long-term current use of insulin E11.9; Z79.4 Diabetes mellitus [facility] insulin use: with terminal carman use Diabetes mellitus complication status: without complication Hyperkalemia E87.5 Primary hypertension I10 Hypertension type: primary hypertension Mixed hyperlipidemia E78.2 Hyperlipidemia type: mixed hyperlipidemia Additional Codes PHQ-9 - 75676 - PHQ-9 Billing: Yes ([id number]) GALILEA-7 Assessment Billing - GALILEA-7 Assessment Tool: GALILEA-7 Assessment 48203 ([id number]) Assessment & Plan Assessment & Plan (1) DMII (diabetes mellitus, type 2): Code(s): E11.9 - Type 2 diabetes mellitus without complications Category: Medical Qualifiers: Diabetes mellitus terminal carman insulin use: with [facility] use Diabetes mellitus complication status: without complication Qualified Code(s): E11.9 - Type 2 diabetes mellitus without complications; Z79.4 - terminal operator (current) use of insulin Plan: Patient's type 2 diabetes well controlled with current diabetic medication. Today's A1c is 6.8. A1c is to remain below 7.0 (2) Hyperkalemia: Code(s): E87.5 - Hyperkalemia Category: Medical Plan: Has a history of mild hyperkalemia. Most recent potassium stable. Now followed by Nephrology and getting evaluation with ultrasound and labs. Patient has been prescribed polystyrene in the past which had helped to reduce her potassium.. Would like to take this once a week for next few weeks. (3) HTN (hypertension): Code(s): I10 - Essential (primary) hypertension Category: Medical Qualifiers: Hypertension type: primary hypertension Qualified Code(s): I10 - Essential (primary) hypertension Plan: Patient's blood pressure slightly elevated today in office. Does not monitor blood pressure at home. She has been off of amlodipine due to med effects. Patient did have hyperkalemia though was thought to be due to losartan. She is on low-dose lisinopril and will consider increasing lisinopril dose. Will be following with Nephrology next week. Goal blood pressure to be below 140/90 (4) HLD (hyperlipidemia): Code(s): E78.5 - Hyperlipidemia, unspecified Category: Medical Qualifiers: Hyperlipidemia type: mixed hyperlipidemia Qualified Code(s): E78.2 - Mixed hyperlipidemia Plan: Patient's most recent lipid panel fairly well controlled. LDL remains slightly above goal of 100. She will continue working on lifestyle and dietary modifications. Will continue her current dose of atorvastatin for now. Goal LDL is to be below 100 Orders: Orders Lipid Panel Today E78.2 - Mixed hyperlipidemia AMB Hemoglobin A1c Today Z13.9 - Encounter for screening, unspecified Comprehensive [place]. Panel Fast Today E78.2 - Mixed hyperlipidemia Complete Blood Count no Diff Today E78.2 - Mixed hyperlipidemia Medications: Refilled metformin 500 mg PO DAILY 90 tabs 1RF 90 days E11.9 - Type 2 diabetes mellitus without complications, Z79.4 - longterm (current) use of insulin atorvastatin 20 mg PO DAILY 90 tabs 1RF 90 days E78.2 - Mixed hyperlipidemia
== END 2024-11-18 08:31 | disposition home or self-care (01) ==
LOC: HO.HMCH 07:35
PROVIDERS: PCP Physician Assistant; Visit Provider Physician Assistant
DX: E11.9 Type 2 diabetes mellitus without complications (principal); Z79.4 Long term (current) use of insulin; E87.5 Hyperkalemia; I10 Essential (primary) hypertension; E78.2 Mixed hyperlipidemia; Z13.9 Encounter for screening, unspecified

== ENCOUNTER → 2024-11-18 07:34 | Outpatient (BNVA) | payer OTHER, SELFPAY | PROVIDERS: PCP Physician Assistant; Visit Provider Physician Assistant | DX: E11.9 Type 2 diabetes mellitus without complications (principal); I10 Essential (primary) hypertension; E78.2 Mixed hyperlipidemia; Z79.4 Long term (current) use of insulin; Z79.84 Long term (current) use of oral hypoglycemic drugs | CPT/HCPCS: 83036; 96127; 99212 ==

== ENCOUNTER 2024-11-25 11:42 | Outpatient (AMB) | payer OTHER, SELFPAY ==
--- NOTE | 2024-11-25 11:44 | HO.NEPHOV_ITS ---
Vital Signs 11/25/24 11:51 Height 5 ft 1 in Weight 143 lb 4 oz BMI 27.1 BP 162/76 H Blood Pressure Location Lt brachial Position Sitting Pulse 86 Pulse Source Pulse Oximeter Pulse Oximetry (%) 97 Oxygen Delivery Method Room Air Intake Visit Reasons: FU-LVM Senior Quality Methods Specialist Required: No Accompanied by: Self / Same As Patient Allergies Penicillins (PENICILLINS) Allergy (Severe, Verified 11/25/24 11:54) RASH penicillin V Allergy (Unknown, Verified 11/25/24 11:54) rash amlodipine Adverse Reaction (Intermediate, Verified 11/25/24 11:54) Heart palpitations naproxen Adverse Reaction (Intermediate, Verified 11/25/24 11:54) Dizziness naproxen Adverse Reaction (Intermediate, Uncoded 11/18/24 08:18) Weakness HPI Comments Details: Brigitte rea is a 64-year-old female in consultation for intermittent hyperkalemia on a backdrop of type 2 diabetes and hypertension. She is on Trulicity 0.75 weekly and metformin 500 daily. She has been working extensively on her diet and lifestyle and has been able to lose weight. She has a history of hyperkalemia that was thought to be due to losartan (but is on lisinopril ). She had been off metoprolol. For hypertension she was on amlodipine but was discontinued due to side effects with dizziness and palpitations. She denies excess NSAID's, salt substitute, H/O periodic paralysis, excessive exercise, renal disease, metabolic acidosis, uretero jejunostomy. She maintains good hydration and has no family H/O hyperkalemia. [facility] Medical History Pelvic prolapse H/O: osteoarthritis History of depression H/O diabetes mellitus Hx of migraine headaches Hypertension Trigger finger of left hand Osteoporosis Depression Surgical History Hx of colonoscopy History of pelvic surgery History of tubal ligation Family History Father Diabetes Mental health disorder Substance use disorder Mother Diabetes Substance use disorder Maternal Grandmother No problems noted. Maternal Grandfather No problems noted. Paternal Grandmother No problems noted. Paternal Grandfather No problems noted. Sister Substance use disorder Brother Substance use disorder Social History Household Members: None Housing: Apartment Do you presently have visiting nurse or other home services: No Alcohol intake: never Patient Tobacco Use Status: Never used Tobacco e-Cigarette/Vaping Use: Never Used Second Hand Smoke Exposure: No service: No Current occupational status: disabled Current occupation: [employer]/ rt hand Cognitive needs: No Hearing needs: No Vision needs: No Review of Systems Const All systems reviewed & are unremarkable except as noted in HPI and below Physical Exam Const General: comfortable and no acute distress Orientation/consciousness: patient oriented x3 HEENT Head: Yes normocephalic Mouth: Normal oral and palatal mucosa present Eyes EOM: EOMs intact bilaterally Neck Neck: Yes supple Resp Auscultation: clear to auscultation bilaterally Cardio Jugular venous distension: no JVD Rate: regular rate GI Palpation (GI): Soft to palpation Auscultation: normal bowel sounds General: Yes no CVA tenderness Back/Spine/Pelvis Back: no CVA tenderness Skin General skin exam: no rashes or lesions noted Neuro General: patient oriented x3 and moves all extremities Extrem General: Yes no pedal edema Results Reviewed Nephrology Results: Sodium, (135-145) 137 mmol/L 10/30/24 Potassium, (3.3-5.1) 4.9 mmol/L 10/30/24 Chloride, (96-108) 104 mmol/L 10/30/24 Carbon Dioxide, (22-29) 26 mmol/L 10/30/24 BUN, (9-16) 16 mg/dL 10/30/24 Creatinine, (0.5-1.4) 0.91 mg/dL 10/30/24 Assessment & Plan Assessment & Plan (1) HTN (hypertension): Code(s): I10 - Essential (primary) hypertension Category: Medical Qualifiers: Hypertension type: primary hypertension Qualified Code(s): I10 - Essential (primary) hypertension (2) Hyperkalemia: Code(s): E87.5 - Hyperkalemia Category: Medical (3) Proteinuria: Code(s): R80.9 - Proteinuria, unspecified Category: Medical Qualifiers: Proteinuria type: other Qualified Code(s): R80.8 - Other proteinuria Plan Has normal renal function but hypertensive with intermittent hyperkalemia BP not @ goal. Started her on Carvedilol 6.25 mg PO bid Not volume expanded. No family H/O hyperkalemia; Imaging of renal arteries ordered Low K diet; May need K lowering medn/florinef; Proteinuria stable- On ACEI Shall optimize BP medications based on evolving data; Answered all questions Medications: New carvedilol must administer with a meal/food 6.25 mg PO BID 60 tabs 3RF 30 days Coding Level of Care Code Est Pt Level 4 (98203) Diagnoses Primary hypertension I10 Hypertension type: primary hypertension Hyperkalemia E87.5 Other proteinuria R80.8 Proteinuria type: other
[2024-11-25 11:51] VITALS: BP 162/76; PULSE 86; O2SAT 97; BMI 27.1
== END 2024-11-25 12:01 | disposition home or self-care (01) ==
LOC: HO.HKA 11:43
PROVIDERS: PCP Physician Assistant; Visit Provider Internal Medicine Nephrology
DX: I10 Essential (primary) hypertension (principal); E87.5 Hyperkalemia; R80.8 Other proteinuria
CPT/HCPCS: 99214

== ENCOUNTER → 2024-11-25 11:42 | Outpatient (BNVA) | payer OTHER, SELFPAY | PROVIDERS: PCP Physician Assistant; Visit Provider Internal Medicine Nephrology | DX: I10 Essential (primary) hypertension (principal); E87.5 Hyperkalemia; R80.8 Other proteinuria | CPT/HCPCS: 99212 ==

== ENCOUNTER 2024-12-09 08:04 | Outpatient (AMB) | payer OTHER, SELFPAY ==
--- NOTE | 2024-12-09 08:58 | A.OFFVIS_ITS ---
Vital Signs 12/09/24 09:21 Height 5 ft 1 in Weight 144 lb BMI 27.2 BP 140/74 H Intake Visit Reasons: AUTOMOTIVE PARTS COORDINATOR annual exam/do not bartolo Senior Mobile Application Developer: Senior Mobile Application Developer Present (Kristie) Accompanied by: Self / Same As Patient Allergies Penicillins (PENICILLINS) Allergy (Severe, Verified 12/09/24 09:21) RASH penicillin V Allergy (Unknown, Verified 12/09/24 09:21) rash amlodipine Adverse Reaction (Intermediate, Verified 12/09/24 09:21) Heart palpitations naproxen Adverse Reaction (Intermediate, Verified 12/09/24 09:21) Dizziness naproxen Adverse Reaction (Intermediate, Uncoded 11/18/24 08:18) Weakness HPI Comments Details: Patient is a postmenopausal woman 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 Dental Treatment Coordinator concerns: none. Currently not sexually active in years. Denies any vaginal dryness or irritation. Attempting to eat a healthy diet with calcium and vitamin D and stays active with exercise. Last pap smear; 2023, negative. Last mammogram; 2024. Colonoscopy is being booked. Denies any family history of breast, ovarian or colon cancer. [facility] Medical History Pelvic prolapse H/O: osteoarthritis History of depression H/O diabetes mellitus Hx of migraine headaches Hypertension Trigger finger of left hand Osteoporosis Depression Surgical History H/O midurethral sling procedure History of vaginectomy Hx of colonoscopy History of pelvic surgery History of tubal ligation Family History Father Diabetes Mental health disorder Substance use disorder Mother Diabetes Substance use disorder Maternal Grandmother No problems noted. Maternal Grandfather No problems noted. Paternal Grandmother No problems noted. Paternal Grandfather No problems noted. Sister Substance use disorder Brother Substance use disorder Social History Household Members: None Housing: Apartment Do you presently have visiting nurse or other home services: No Alcohol intake: never Patient Tobacco Use Status: Never used Tobacco e-Cigarette/Vaping Use: Never Used Second Hand Smoke Exposure: No service: No Current occupational status: disabled Current occupation: [employer]/ rt hand Cognitive needs: No Hearing needs: No Vision needs: No Female Reproductive History Menstrual control method: none Total pregnancies: 3 Full term: 3 Date of last pap smear: 06/28/23 (negative pap smear, negative hpv ) Date of Mammogram: 06/11/24 (bi rad 1) Date of last Bone Density Screenin10/08/24 Review of Systems Const All systems reviewed & are unremarkable except as noted in HPI and below Reports as per HPI Eyes Reports no additional complaints ENT Reports no additional complaints Card Reports no additional complaints Resp Reports no additional complaints GI Reports as per HPI and Reports no additional complaints Reports as per HPI Musc Reports no additional complaints Skin/Breast Reports as per HPI Neuro Reports no additional complaints Psych Reports no additional complaints Endo Reports no additional complaints Gennaro/Lymph Reports no additional complaints Aller/Immun Reports no additional complaints Physical Exam Vital Signs: Last Vital Signs BP 140/74 H 12/09/24 09:21 BMI result Body Mass Index 27.2 Const General: cooperative, healthy appearing, no acute distress, well developed and alert Orientation/consciousness: patient oriented x3 HEENT Head: Yes normal to inspection Eyes General: appearance normal, both eyes and all related structures Neck Neck: Yes normal visual inspection Thyroid: Thyroid normal Chest Chest palpation & inspection: normal inspection of the chest and other (no puckering, dimpling, peau de orange, retraction, discharge, masses) Breast/axilla inspection: normal inspection of the breasts Breast/axilla palpation: normal palpation of the breasts Resp Effort & Inspection: normal respiratory effort GI Inspection: Yes normal to inspection Palpation (GI): Soft to palpation Rectal Exam - Female: deferred General: Yes bladder normal to palpation External Female Exam: normal external appearance and normal appearance of the urethra Speculum Exam - Vagina: normal appearance of the vagina, normal palpation, normal vaginal discharge and vagina atrophic Speculum Exam - Cervix: Cervix absent (vag cuff no lesions or nodules) Bimanual exam- vagina & uterus: normal bimanual exam, normal palpation, uterine size normal, bladder normal to palpation and non-tender Bimanual Exam- Adnexa, other: no masses Skin General skin exam: no rashes or lesions noted Rashes: no rashes Neuro General: patient oriented x3 Cognition (Neuro): normal cognition Extrem General: Yes normal to inspection Psych Attitude: cooperative Thought process: Normal thought process present Assessment & Plan Assessment & Plan (1) Encounter for well woman exam with routine gynecological exam: Code(s): Z01.419 - Encounter for gynecological examination (general) (routine) without abnormal findings Category: Medical Plan Discussed: Current recommendations for pap smears per ASCCP guidelines. Breast awareness, periodic self breast exams and yearly mammogram. Maintain a healthy lifestyle, well balanced diet including Calcium 1,200 mg and Vitamin D 600 IU daily, and routine exercise. Vaginal dryness, urinary symptoms, role of vaginal estrogens for urological benefits. Follow up p.r.n. if interested in initiating. Patient verbalizes understanding and agrees to the plan of care. She was given opportunity to ask questions and all questions were answered to the best of my ability. RTO in 1 year for annual r programmer exam. This note is constructed using voice recognition software. While every effort has been made to ensure accuracy, p d driver errors may have been included. Coding Level of Care Code Est Pt Prev Care >65y(37119) Diagnoses Encounter for well woman exam with routine gynecological exam Z01.419
[2024-12-09 09:21] VITALS: BP 140/74; BMI 27.2
== END 2024-12-09 09:46 | disposition home or self-care (01) ==
LOC: HO.HWS 08:04
PROVIDERS: PCP Physician Assistant; Visit Provider Advanced Practice Midwife
DX: Z01.419 Encounter for gynecological examination (general) (routine) without abnormal findings (principal)
CPT/HCPCS: 99397; 99459

== ENCOUNTER → 2024-12-09 08:04 | Outpatient (BNVA) | payer OTHER, SELFPAY | PROVIDERS: PCP Physician Assistant; Visit Provider Advanced Practice Midwife | DX: Z01.419 Encounter for gynecological examination (general) (routine) without abnormal findings (principal) | CPT/HCPCS: 99397 ==

== ENCOUNTER 2024-12-11 07:40 | Outpatient (REF) | payer OTHER, SELFPAY ==
--- NOTE | ~2024-12-11 | US_ITS ---
EXAMINATION: ULTRASOUND RENAL DOPPLER, BILATERALLY. US RETROPERITONEAL LIMITED (RENAL ONLY) CLINICAL INFORMATION: Essential hypertension.. COMPARISON: September 17, 2017. Correlated to CT abdomen pelvis dated April 12, 2023. TECHNIQUE: Real-time ultrasound kidneys using grayscale and color Doppler technique. Ultrasound renal Doppler spectral analysis of the main renal arteries with subsegmental resistive indicis in the upper mid and lower poles, both kidneys. Ultrasound and abdominal aorta Doppler spectral analysis of the origin of the main renal arteries. FINDINGS: RIGHT KIDNEY: 9 x 4 x 6 cm (SAG x AP x TRV). Normal echotexture. Normal renal cortical thickness. No hydronephrosis. 2.2, 1.8 and 0.7 cm anechoic lesion centered in the parapelvic region without nodular or septal components. LEFT KIDNEY: 9 x 4 x 5 cm (SAG x AP x TRV). Normal echotexture. Normal renal cortical thickness. No hydronephrosis. 2.3 cm anechoic lesion in the upper pole without nodular components or septum. SPECTRAL DOPPLER ANALYSIS: Right Kidney: -Peak systolic velocity in the proximal right renal artery = 54 cm/s. Normal waveforms. -Peak systolic velocity in the mid right renal artery = 67 cm/s. Normal waveforms. -Peak systolic velocity in the distal right renal artery = 88 cm/s. Normal waveforms. -Patent right renal vein. -Upper pole interlobar artery resistive index of 0.69. -Midpole interlobar artery resistive index of 0.68. -Lower pole interlobar artery resistive index of 0.67. RAR right = 1.63 Left Kidney: -Peak systolic velocity in the proximal left renal artery = 46 cm/s. Normal waveforms. -Peak systolic velocity in the mid left renal artery = 49 cm/s. Normal waveforms. -Peak systolic velocity in the distal left renal artery = 56 cm/s. Normal waveforms. -Patent left renal vein. -Upper pole interlobar artery resistive index of 0.68. -Mid pole interlobar artery resistive index of 0.76. -lower pole interlobar artery resistive index of 0.77. RAR left = 1.0 Aorta: -Peak systolic velocity = 54 cm/s. US/US renal doppler IMPRESSION: No hemodynamically significant stenosis by ultrasound criteria at either main renal artery. Bilateral simple renal cysts. No hydronephrosis.. Electronically signed by: Micha Santos MD 12/11/2024 09:49 AM EDT RP
== END 2024-12-11 07:41 | disposition home or self-care (01) ==
LOC: HO.US 07:40
PROVIDERS: PCP Physician Assistant; Visit Provider Internal Medicine Nephrology
DX: I10 Essential (primary) hypertension (principal); E87.5 Hyperkalemia
CPT/HCPCS: 76775; 93975

== ENCOUNTER → 2024-12-11 07:40 | Outpatient (BNV) | payer OTHER, SELFPAY | PROVIDERS: PCP Physician Assistant; Visit Provider Radiology Diagnostic Radiology | DX: I10 Essential (primary) hypertension (principal) | CPT/HCPCS: 76775; 93975 ==

== ENCOUNTER 2024-12-23 10:17 | Outpatient (AMB) | payer OTHER, SELFPAY ==
--- NOTE | 2024-12-23 10:56 | HO.NEPHOV_ITS ---
Vital Signs 12/23/24 10:57 Height 5 ft 1 in Weight 146 lb 8 oz BMI 27.7 BP 128/80 Blood Pressure Location Rt brachial Position Sitting Pulse 69 Pulse Source Pulse Oximeter Pulse Oximetry (%) 99 Oxygen Delivery Method Room Air Intake Visit Reasons: 1mon f/u No labs-Conf Bundle Clerk Required: No Accompanied by: Self / Same As Patient Allergies Penicillins (PENICILLINS) Allergy (Severe, Verified 12/23/24 10:56) RASH penicillin V Allergy (Unknown, Verified 12/23/24 10:56) rash amlodipine Adverse Reaction (Intermediate, Verified 12/23/24 10:56) Heart palpitations naproxen Adverse Reaction (Intermediate, Verified 12/23/24 10:56) Dizziness naproxen Adverse Reaction (Intermediate, Uncoded 11/18/24 08:18) Weakness HPI Comments Details: Brigitte who is a 64-year-old female was seen for intermittent hyperkalemia on a backdrop of type 2 diabetes and hypertension. She is on Trulicity 0.75 weekly and metformin 500 daily. She has been working extensively on her diet and lifestyle and has been able to lose weight. She has a history of hyperkalemia and was on losartan & lisinopril in the past . She had been off metoprolol. For hypertension she was on amlodipine but was discontinued due to side effects with dizziness and palpitations. She denies excess NSAID's, salt substitute, H/O periodic paralysis, excessive exercise, renal disease, metabolic acidosis, uretero jejunostomy. She maintains good hydration and has no family H/O hyperkalemia. [facility] Medical History Pelvic prolapse H/O: osteoarthritis History of depression H/O diabetes mellitus Hx of migraine headaches Hypertension Trigger finger of left hand Osteoporosis Depression Surgical History H/O midurethral sling procedure History of vaginectomy Hx of colonoscopy History of pelvic surgery History of tubal ligation Family History Father Diabetes Mental health disorder Substance use disorder Mother Diabetes Substance use disorder Maternal Grandmother No problems noted. Maternal Grandfather No problems noted. Paternal Grandmother No problems noted. Paternal Grandfather No problems noted. Sister Substance use disorder Brother Substance use disorder Social History Household Members: None Housing: Apartment Do you presently have visiting nurse or other home services: No Alcohol intake: never Patient Tobacco Use Status: Never used Tobacco e-Cigarette/Vaping Use: Never Used Second Hand Smoke Exposure: No service: No Current occupational status: disabled Current occupation: [employer]/ rt hand Cognitive needs: No Hearing needs: No Vision needs: No Review of Systems Const All systems reviewed & are unremarkable except as noted in HPI and below Physical Exam Vital Signs: Last Vital Signs Pulse 69 12/23/24 10:57 BP 160/90 H 12/23/24 10:57 Pulse Ox 99 12/23/24 10:57 Oxygen Delivery Method Room Air 12/23/24 10:57 BMI result Body Mass Index 27.7 Const General: comfortable and no acute distress Orientation/consciousness: patient oriented x3 HEENT Head: Yes normocephalic Mouth: Normal oral and palatal mucosa present Eyes EOM: EOMs intact bilaterally Neck Neck: Yes supple Resp Auscultation: clear to auscultation bilaterally Cardio Jugular venous distension: no JVD Rate: regular rate GI Palpation (GI): Soft to palpation Auscultation: normal bowel sounds General: Yes no CVA tenderness Back/Spine/Pelvis Back: no CVA tenderness Skin General skin exam: no rashes or lesions noted Neuro General: patient oriented x3 and moves all extremities Extrem General: Yes no pedal edema Results Reviewed Nephrology Results: Sodium, (135-145) 137 mmol/L 10/30/24 Potassium, (3.3-5.1) 4.9 mmol/L 10/30/24 Chloride, (96-108) 104 mmol/L 10/30/24 Carbon Dioxide, (22-29) 26 mmol/L 10/30/24 BUN, (9-16) 16 mg/dL 10/30/24 Creatinine, (0.5-1.4) 0.91 mg/dL 10/30/24 Renal US 12/11/24 Assessment & Plan Assessment & Plan (1) HTN (hypertension): Code(s): I10 - Essential (primary) hypertension Category: Medical Qualifiers: Hypertension type: primary hypertension Qualified Code(s): I10 - Essential (primary) hypertension (2) Hyperkalemia: Code(s): E87.5 - Hyperkalemia Category: Medical (3) Renal cyst: Code(s): N28.1 - Cyst of kidney, acquired Category: Medical Plan Has normal renal function but hypertensive with intermittent hyperkalemia( resolved) BP not @ goal. C/W Carvedilol 6.25 mg PO bid; SHall arrange F/U renal cyst in 1 year Not volume expanded. No family H/O hyperkalemia; Imaging of renal arteries reviewed Low K diet; May need K lowering medn/florinef if k goes up ; Proteinuria stable Answered all questions; Labs/FU Apr Orders: Orders Creatinine 4 Months E87.5 - Hyperkalemia, I10 - Essential (primary) hypertension, N28.1 - Cyst of kidney, acquired Blood Urea Nitrogen 4 Months E87.5 - Hyperkalemia, I10 - Essential (primary) hypertension, N28.1 - Cyst of kidney, acquired Protein Creatinine Ratio, Ur 4 Months E87.5 - Hyperkalemia, I10 - Essential (primary) hypertension, N28.1 - Cyst of kidney, acquired Electrolytes 4 Months E87.5 - Hyperkalemia, I10 - Essential (primary) hypertension, N28.1 - Cyst of kidney, acquired Coding Level of Care Code Est Pt Level 4 (72033) Diagnoses Primary hypertension I10 Hypertension type: primary hypertension Hyperkalemia E87.5 Renal cyst N28.1
[2024-12-23 10:57] VITALS: BP 128/80; PULSE 69; O2SAT 99; BMI 27.7
== END 2024-12-23 11:13 | disposition home or self-care (01) ==
LOC: HO.HKA 10:17
PROVIDERS: PCP Physician Assistant; Visit Provider Internal Medicine Nephrology
DX: I10 Essential (primary) hypertension (principal); E87.5 Hyperkalemia; N28.1 Cyst of kidney, acquired
CPT/HCPCS: 99214

== ENCOUNTER → 2024-12-23 10:17 | Outpatient (BNVA) | payer OTHER, SELFPAY | PROVIDERS: PCP Physician Assistant; Visit Provider Internal Medicine Nephrology | DX: I10 Essential (primary) hypertension (principal); N28.1 Cyst of kidney, acquired; E87.5 Hyperkalemia; Z79.85 Long-term (current) use of injectable non-insulin antidiabetic drugs | CPT/HCPCS: 99212 ==